=== PATIENT | female | born 1955 | race Caucasian/White ===

== ENCOUNTER 2019-12-11 08:13 | Outpatient (REF) | payer OTHER, SELFPAY ==
[2019-12-11 11:10] LABS: MANUAL DIFF FLAG NO
[2019-12-11 11:22] LABS: Estimated Average Glucose 108 mg/dL; Hemoglobin A1c % 5.4 %
[2019-12-11 12:12] LABS: Alanine Aminotransferase 14 U/L (0-31); Albumin Level 4.2 g/dL (3.5-5.0); Alkaline Phosphatase 73 U/L (39-117); Anion Gap 15 (12-20); Aspartate Amino Transferase 16 U/L (5-31); Bilirubin Total 1.1 mg/dL (0.0-1.0); Blood Urea Nitrogen 11 mg/dL (9-16); Calcium 9.5 mg/dL (8.4-10.2); Carbon Dioxide 28 mmol/L (22-29); Chloride 99 mmol/L (96-108); Cholesterol 264 mg/dL; Estimated Glomerular Filt Rate > 60; Glucose Random 105 mg/dL (60-115); HDL Cholesterol 55 mg/dL; LDL Cholesterol Calculated 180 mg/dl; Potassium 5.3 mmol/l (3.3-5.1); Sodium 137 mmol/L (135-145); Total Protein 6.5 g/dL (6.5-8.0); Triglycerides 149 mg/dL
[2019-12-11 12:17] LABS: Ferritin 311 ng/mL (10-250); TSH reflex Free T4 1.55 mIU/mL (0.32-4.0)
[2019-12-11 12:29] LABS: Basophils Absolute Auto 0.1 X10*3/uL (0.0-0.2); Basophils Percent Auto 0.9 % (0-2); Eosinophils Absolute Auto 0.1 X10*3/uL (0.0-0.4); Hematocrit 47.8 % (37-47); Hemoglobin 15.6 g/dl (12.0-16.0); Imm Gran Abs Auto 0.02 X10*3/uL (0.00-0.03); Imm Gran Pct Auto 0.2 % (0.0-0.4); Lymphocytes Absolute Auto 3.6 X10*3/uL (1.2-4.9); Lymphocytes Percent Auto 39.5 % (20-40); Mean Corpuscular HGB Conc 32.6 g/dl (31.0-35.0); Mean Corpuscular Hemoglobin 29.5 pg (27.0-33.0); Mean Corpuscular Volume 90.5 fL (80-98); Mean Platelet Volume 9.4 fL (9.4-12.3); Monocytes Absolute Auto 0.6 X10*3/uL (0.1-1.2); Monocytes Percent Auto 6.3 % (2-11); Neutrophils Absolute Auto 4.7 X10*3/uL (2.0-8.3); Neutrophils Percent Auto 52.1 % (45-73); Platelet Count 287 X10*3/uL (160-400); Red Blood Count 5.28 X10*6/uL (4.20-5.50); Red Cell Distribution Width 13.2 % (11.0-16.0)
== END 2019-12-11 08:14 | disposition home or self-care (01) ==
LOC: HO.HMGCLDS 08:13
PROVIDERS: PCP Internal Medicine; Visit Provider Internal Medicine
DX: I10 Essential (primary) hypertension (principal); F41.9 Anxiety disorder, unspecified; E78.9 Disorder of lipoprotein metabolism, unspecified; R73.03 Prediabetes; R10.13 Epigastric pain; R71.8 Other abnormality of red blood cells; E87.5 Hyperkalemia; R17 Unspecified jaundice; F17.200 Nicotine dependence, unspecified, uncomplicated
CPT/HCPCS: 36415; 80053; 80061; 82728; 83036; 84443; 85025

== ENCOUNTER 2020-06-11 10:31 | Outpatient (REF) | payer OTHER, SELFPAY ==
[2020-06-11 13:54] LABS: MANUAL DIFF FLAG NO
[2020-06-11 14:04] LABS: Basophils Absolute Auto 0.1 X10*3/uL (0.0-0.2); Basophils Percent Auto 1.1 % (0-2); Eosinophils Absolute Auto 0.1 X10*3/uL (0.0-0.4); Hematocrit 49.2 % (37-47); Hemoglobin 15.3 g/dl (12.0-16.0); Imm Gran Abs Auto 0.01 X10*3/uL (0.00-0.03); Imm Gran Pct Auto 0.1 % (0.0-0.4); Lymphocytes Percent Auto 37.2 % (20-40); Mean Corpuscular HGB Conc 31.1 g/dl (31.0-35.0); Mean Corpuscular Hemoglobin 28.2 pg (27.0-33.0); Mean Corpuscular Volume 90.8 fL (80-98); Mean Platelet Volume 9.1 fL (9.4-12.3); Monocytes Absolute Auto 0.5 X10*3/uL (0.1-1.2); Neutrophils Absolute Auto 4.5 X10*3/uL (2.0-8.3); Neutrophils Percent Auto 54.6 % (45-73); Platelet Count 225 X10*3/uL (160-400); Red Blood Count 5.42 X10*6/uL (4.20-5.50); Red Cell Distribution Width 12.9 % (11.0-16.0); White Blood Count 8.2 X10*3/uL (4.8-10.8)
[2020-06-11 14:19] LABS: Estimated Average Glucose 117 mg/dL; Hemoglobin A1c % 5.7 %
[2020-06-11 14:21] LABS: Alanine Aminotransferase 10 U/L (0-31); Albumin Level 4.2 g/dL (3.5-5.0); Alkaline Phosphatase 64 U/L (39-117); Anion Gap 14 (12-20); Aspartate Amino Transferase 15 U/L (5-31); Bilirubin Direct 0.3 mg/dL (0.0-0.5); Blood Urea Nitrogen 15 mg/dL (9-16); Calcium 9.4 mg/dL (8.4-10.2); Carbon Dioxide 29 mmol/L (22-29); Chloride 102 mmol/L (96-108); Cholesterol 205 mg/dL; Estimated Glomerular Filt Rate > 60; Glucose Fasting 104 mg/dL (60-99); HDL Cholesterol 66 mg/dL; LDL Cholesterol Calculated 113 mg/dl; Potassium 5.5 mmol/L (3.3-5.1); Sodium 139 mmol/L (135-145); Total Protein 6.7 g/dL (6.5-8.0); Triglycerides 132 mg/dL
[2020-06-11 14:43] LABS: Ferritin 244 ng/mL (10-250)
[2020-06-19 17:06] LABS: Vitamin D 25-OH, D2 <4 ng/mL; Vitamin D 25-OH, D3 36 ng/mL; Vitamin D 25-OH, Total 36 ng/mL (30-100)
== END 2020-06-11 10:32 | disposition home or self-care (01) ==
LOC: HO.HMGCLDS 10:31
PROVIDERS: PCP Internal Medicine; Visit Provider Internal Medicine
DX: E78.9 Disorder of lipoprotein metabolism, unspecified (principal); I10 Essential (primary) hypertension; E55.9 Vitamin D deficiency, unspecified; R10.13 Epigastric pain; F41.1 Generalized anxiety disorder; Z87.891 Personal history of nicotine dependence; Z09 Encounter for follow-up examination after completed treatment for conditions other than malignant neoplasm
CPT/HCPCS: 36415; 80048; 80061; 80076; 82306; 82728; 83036; 85025

== ENCOUNTER 2020-06-12 14:00 | Outpatient (REF) | payer OTHER, SELFPAY | END 2020-06-12 14:01 | disposition home or self-care (01) | LOC: HO.LNP 14:00 | PROVIDERS: Visit Provider Hospitalist | DX: R30.0 Dysuria (principal) | CPT/HCPCS: 87086 ==

== ENCOUNTER 2020-06-17 08:07 | Outpatient (REF) | payer OTHER, SELFPAY ==
[2020-06-17 11:55] LABS: Anion Gap 13 (12-20); Carbon Dioxide 27 mmol/L (22-29); Chloride 103 mmol/L (96-108); Potassium 4.2 mmol/L (3.3-5.1); Sodium 139 mmol/L (135-145)
== END 2020-06-17 08:08 | disposition home or self-care (01) ==
LOC: HO.HMGCLDS 08:07
PROVIDERS: PCP Internal Medicine; Visit Provider Internal Medicine
DX: E87.5 Hyperkalemia (principal)
CPT/HCPCS: 36415; 80051

== ENCOUNTER 2020-08-11 07:17 | Outpatient (REF) | payer OTHER, SELFPAY ==
--- NOTE | ~2020-08-11 | MM_ITS ---
EXAMINATION: MM SCREENING DIGITAL BREAST TOMOSYNTHESIS, BILATERAL CLINICAL INFORMATION: Screening. Asymptomatic. The lifetime risk of breast cancer based on the Tyrer-Cuzick Model is 9%. COMPARISON: Mammography: 01/04/2019, 03/31/2017, 03/10/2016 TECHNIQUE: Digital breast tomosynthesis is performed in both the craniocaudal and mediolateral oblique views along with computer-aided detection (CAD). Synthesized 2D images are generated from the tomosynthesis. FINDINGS: There are scattered areas of fibroglandular density (ACR BI-RADS breast composition Category b). There are no significant masses, abnormal calcifications, or other abnormalities. There are some scattered ductal secretory calcifications in both breasts. MM/MM tomosynthesis screening BI IMPRESSION: No mammographic evidence of malignancy. ASSESSMENT: BI-RADS 2: Benign RECOMMENDATION: Routine annual mammography screening. This patient's information was entered into a reminder system with a target due date for their next mammogram.
== END 2020-08-11 07:18 | disposition home or self-care (01) ==
LOC: HO.MAMMO 07:17
PROVIDERS: PCP Internal Medicine; Visit Provider Internal Medicine
DX: Z12.31 Encounter for screening mammogram for malignant neoplasm of breast (principal)
CPT/HCPCS: 77063; 77067

== ENCOUNTER 2021-03-13 09:40 | Outpatient (REF) | payer OTHER, SELFPAY ==
[2021-03-13 11:18] LABS: MANUAL DIFF FLAG NO
[2021-03-13 11:36] LABS: Basophils Absolute Auto 0.1 X10*3/uL (0.0-0.2); Basophils Percent Auto 0.7 % (0-2); Eosinophils Absolute Auto 0.1 X10*3/uL (0.0-0.4); Hematocrit 47.4 % (37.0-47.0); Imm Gran Abs Auto 0.03 X10*3/uL (0.00-0.03); Imm Gran Pct Auto 0.4 % (0.0-0.4); Lymphocytes Absolute Auto 1.8 X10*3/uL (1.2-4.9); Lymphocytes Percent Auto 22.5 % (20-40); Mean Corpuscular HGB Conc 31.6 g/dl (31.0-35.0); Mean Corpuscular Hemoglobin 28.8 pg (27.0-33.0); Mean Platelet Volume 9.1 fL (9.4-12.3); Monocytes Absolute Auto 0.4 X10*3/uL (0.1-1.2); Monocytes Percent Auto 4.8 % (2-11); Neutrophils Absolute Auto 5.8 x10*3/uL (2.0-8.3); Neutrophils Percent Auto 70.6 % (45-73); Platelet Count 249 X10*3/uL (160-400); Red Blood Count 5.21 X10*6/uL (4.20-5.50); Red Cell Distribution Width 12.3 % (11.0-16.0); White Blood Count 8.2 X10*3/uL (4.8-10.8)
[2021-03-13 12:06] LABS: Alanine Aminotransferase 16 U/L (0-31); Albumin Level 4.1 g/dL (3.5-5.0); Alkaline Phosphatase 68 U/L (39-117); Anion Gap 14 (12-20); Aspartate Amino Transferase 17 U/L (5-31); Bilirubin Total 0.5 mg/dL (0.0-1.0); Blood Urea Nitrogen 11 mg/dL (9-16); Calcium 9.7 mg/dL (8.4-10.2); Carbon Dioxide 27 mmol/L (22-29); Chloride 102 mmol/L (96-108); Estimated Glomerular Filt Rate > 60; Glucose Random 226 mg/dL (60-115); Potassium 4.6 mmol/L (3.3-5.1); Sodium 138 mmol/L (135-145); Total Protein 6.6 g/dL (6.5-8.0)
[2021-03-14 15:16] LABS: LDL Cholesterol Direct 118 mg/dL (<100)
== END 2021-03-13 09:41 | disposition home or self-care (01) ==
LOC: HO.HMGCLDS 09:40
PROVIDERS: Visit Provider Internal Medicine
DX: E78.9 Disorder of lipoprotein metabolism, unspecified (principal); F41.1 Generalized anxiety disorder; I10 Essential (primary) hypertension
CPT/HCPCS: 36415; 80053; 83721; 85025

== ENCOUNTER 2021-09-14 10:14 | Outpatient (REF) | payer MEDICARE, SELFPAY ==
--- NOTE | ~2021-09-14 | MM_ITS ---
EXAMINATION: MM SCREENING DIGITAL BREAST TOMOSYNTHESIS, BILATERAL CLINICAL INFORMATION: Screening. Asymptomatic. The lifetime risk of breast cancer based on the Tyrer-Cuzick Model is 8%. COMPARISON: Mammography: 08/11/2020, 01/04/2019, 03/31/2017, 03/10/2016 (baseline). TECHNIQUE: Digital breast tomosynthesis is performed in both the craniocaudal and mediolateral oblique views along with computer-aided detection (CAD). Synthesized 2D images are generated from the tomosynthesis. FINDINGS: There are scattered areas of fibroglandular density (ACR BI-RADS breast composition Category b). There is subtle focal asymmetric density anterior 9:00 right breast, likely summation artifact and/or incompletely compressed glandular tissue. The remainder of the bilateral breasts show parenchymal and stromal markings similar to prior studies. There are no abnormal calcifications. The axilla and skin contours are unremarkable. MM/MM tomosynthesis screening BI IMPRESSION: Right: -Subtle focal asymmetric density anterior 9:00, likely summation artifact or incompletely compressed glandular tissue. Left: -No mammographic evidence of malignancy. ASSESSMENT: BI-RADS 0: Incomplete - Need Additional Imaging Evaluation RECOMMENDATION: 1. Additional views of the right breast (rolled CC x2, standard ML). 2. Targeted ultrasound if warranted after review of the additional views. 3. Radiology department staff will contact the patient for additional imaging. This patient's information was entered into a reminder system with a target due date for their next mammogram.
== END 2021-09-14 10:15 | disposition home or self-care (01) ==
LOC: HO.MAMMO 10:14
PROVIDERS: PCP Internal Medicine; Visit Provider Internal Medicine
DX: Z12.31 Encounter for screening mammogram for malignant neoplasm of breast (principal)
CPT/HCPCS: 77063; 77067

== ENCOUNTER 2021-09-17 08:18 | Outpatient (REF) | payer MEDICARE, SELFPAY ==
--- NOTE | ~2021-09-17 | MM_ITS ---
EXAMINATION: MM DIAGNOSTIC DIGITAL BREAST TOMOSYNTHESIS, RIGHT CLINICAL INFORMATION: Recall from screening for subtle focal asymmetric density anterior 9:00 likely summation artifact or incompletely compressed glandular tissue. COMPARISON: Mammography: 09/14/2021, 08/11/2020, 01/04/2019 TECHNIQUE: Digital breast tomosynthesis is performed. 2D images are generated from the tomosynthesis. The following views are obtained: Rolled CC x2, standard ML. FINDINGS: There are scattered areas of fibroglandular density (ACR BI-RADS breast composition Category b). The additional views show no three-dimensional focal asymmetric density. There is no interval mass or architectural abnormality or developing density. No significant changes from prior studies. Results are discussed with the patient at time of visit. MM/MM tomosynthesis added views R IMPRESSION: Additional views show focal asymmetric density. No significant changes from prior exams. ASSESSMENT: BI-RADS 2: Benign RECOMMENDATION: Routine annual mammography screening. This patient's information was entered into a reminder system with a target due date for their next mammogram.
== END 2021-09-17 08:19 | disposition home or self-care (01) ==
LOC: HO.MAMMO 08:18
PROVIDERS: PCP Internal Medicine; Visit Provider Internal Medicine
DX: N64.89 Other specified disorders of breast (principal)
CPT/HCPCS: 77061; 77065

== ENCOUNTER 2021-11-09 08:12 | Outpatient (REF) | payer MEDICARE, MEDICAID, SELFPAY ==
[2021-11-09 11:17] LABS: MANUAL DIFF FLAG NO
[2021-11-09 11:40] LABS: Basophils Absolute Auto 0.1 X10*3/uL (0.0-0.2); Basophils Percent Auto 0.9 % (0-2); Eosinophils Absolute Auto 0.2 X10*3/uL (0.0-0.4); Eosinophils Percent Auto 1.9 % (0-4); Hematocrit 43.7 % (37.0-47.0); Hemoglobin 14.7 g/dl (12.0-16.0); Imm Gran Abs Auto 0.03 X10*3/uL (0.00-0.03); Imm Gran Pct Auto 0.3 % (0.0-0.4); Lymphocytes Absolute Auto 3.6 X10*3/uL (1.2-4.9); Lymphocytes Percent Auto 38.2 % (20-40); Mean Corpuscular HGB Conc 33.6 g/dl (31.0-35.0); Mean Corpuscular Hemoglobin 29.1 pg (27.0-33.0); Mean Corpuscular Volume 86.4 fL (80.0-98.0); Mean Platelet Volume 9.4 fL (9.4-12.3); Monocytes Absolute Auto 0.7 X10*3/uL (0.1-1.2); Monocytes Percent Auto 7.3 % (2-11); Neutrophils Absolute Auto 4.8 x10*3/uL (2.0-8.3); Neutrophils Percent Auto 51.4 % (45-73); Platelet Count 278 X10*3/uL (160-400); Red Blood Count 5.06 X10*6/uL (4.20-5.50); Red Cell Distribution Width 12.6 % (11.0-16.0); White Blood Count 9.4 X10*3/uL (4.8-10.8)
[2021-11-09 11:54] LABS: Estimated Average Glucose 206 mg/dL; Hemoglobin A1c % 8.8 %
[2021-11-09 12:14] LABS: Alanine Aminotransferase 23 U/L (0-31); Alkaline Phosphatase 66 U/L (39-117); Aspartate Amino Transferase 17 U/L (5-31); Bilirubin Total 1.3 mg/dL (0.0-1.0); Blood Urea Nitrogen 15 mg/dL (9-16); Calcium 9.4 mg/dL (8.4-10.2); Cholesterol 183 mg/dL; Estimated Glomerular Filt Rate 52; Glucose Fasting 205 mg/dL (60-99); HDL Cholesterol 48 mg/dL; LDL Cholesterol Calculated 100 mg/dl; Total Protein 6.4 g/dL (6.5-8.0); Triglycerides 176 mg/dL
[2021-11-09 12:31] LABS: Anion Gap 17 (12-20); Carbon Dioxide 32 mmol/L (22-29); Chloride 93 mmol/L (96-108); Potassium 2.7 mmol/L (3.3-5.1); Sodium 139 mmol/L (135-145)
== END 2021-11-09 08:13 | disposition home or self-care (01) ==
LOC: HO.HMGCLDS 08:12
PROVIDERS: PCP Internal Medicine; Visit Provider Internal Medicine
DX: I10 Essential (primary) hypertension (principal); F41.1 Generalized anxiety disorder; E78.9 Disorder of lipoprotein metabolism, unspecified; E66.09 Other obesity due to excess calories; I25.10 Atherosclerotic heart disease of native coronary artery without angina pectoris
CPT/HCPCS: 36415; 80053; 80061; 83036; 85025

== ENCOUNTER 2021-11-10 12:16 | Outpatient (REF) | payer MEDICARE, MEDICAID, SELFPAY ==
[2021-11-10 14:12] LABS: Alanine Aminotransferase 22 U/L (0-31); Albumin Level 4.3 g/dL (3.5-5.0); Alkaline Phosphatase 71 U/L (39-117); Anion Gap 17 (12-20); Aspartate Amino Transferase 17 U/L (5-31); Blood Urea Nitrogen 19 mg/dL (9-16); Calcium 10.6 mg/dL (8.4-10.2); Carbon Dioxide 33 mmol/L (22-29); Chloride 92 mmol/L (96-108); Estimated Glomerular Filt Rate 46; Glucose Random 262 mg/dL (60-115); Potassium 3.7 mmol/L (3.3-5.1); Sodium 138 mmol/L (135-145)
[2021-11-10 14:17] LABS: Estimated Average Glucose 206 mg/dL; Hemoglobin A1c % 8.8 %
[2021-11-10 17:54] LABS: Creatinine Urine 148.24 mg/dL; Microalbum/Creatinine Ratio Ur 5.3 ug/mg cr
[2021-11-11 08:36] LABS: LDL Cholesterol Direct 121 mg/dL (<100)
== END 2021-11-10 12:17 | disposition home or self-care (01) ==
LOC: HO.HMGCLDS 12:16
PROVIDERS: PCP Internal Medicine; Visit Provider Internal Medicine
DX: E87.6 Hypokalemia (principal); R73.9 Hyperglycemia, unspecified
CPT/HCPCS: 36415; 80053; 82043; 83036; 83721

== ENCOUNTER 2021-11-28 09:29 | Emergency (ER) | payer MEDICARE, MEDICAID, SELFPAY ==
[2021-11-28 09:46] VITALS: BP 155/69; PULSE 72; RESP 17; TEMP 35.9; O2SAT 99; BMI 32.1
[2021-11-28 10:21] LABS: MANUAL DIFF FLAG NO
[2021-11-28 10:28] LABS: Basophils Absolute Auto 0.1 X10*3/uL (0.0-0.2); Basophils Percent Auto 0.8 % (0-2); Eosinophils Absolute Auto 0.1 X10*3/uL (0.0-0.4); Eosinophils Percent Auto 1.2 % (0-4); Hematocrit 42.7 % (37.0-47.0); Hemoglobin 14.2 g/dl (12.0-16.0); Imm Gran Abs Auto 0.03 X10*3/uL (0.00-0.03); Imm Gran Pct Auto 0.3 % (0.0-0.4); Lymphocytes Absolute Auto 2.5 X10*3/uL (1.2-4.9); Lymphocytes Percent Auto 27.9 % (20-40); Mean Corpuscular HGB Conc 33.3 g/dl (31.0-35.0); Mean Corpuscular Hemoglobin 28.6 pg (27.0-33.0); Mean Corpuscular Volume 85.9 fL (80.0-98.0); Mean Platelet Volume 9.3 fL (9.4-12.3); Monocytes Absolute Auto 0.6 X10*3/uL (0.1-1.2); Monocytes Percent Auto 6.8 % (2-11); Neutrophils Absolute Auto 5.7 x10*3/uL (2.0-8.3); Platelet Count 258 X10*3/uL (160-400); Red Blood Count 4.97 X10*6/uL (4.20-5.50); Red Cell Distribution Width 12.8 % (11.0-16.0)
[2021-11-28 10:41] LABS: Appearance Urine Cloudy; Color Urine Orange; Glucose Urine UA 250 mg/dL (Negative); Leukocyte Esterase Urine Moderate (2+) (Negative); Nitrite Urine Negative (Negative); UMIC TRIGGER UACC YES; Urine Blood Large (3+) (Negative); Urine Ketones Negative (Negative); Urine Protein 30 (1+) mg/dL (Neg-Trace)
[2021-11-28 10:43] LABS: Alanine Aminotransferase 21 U/L (0-31); Albumin Level 4.3 g/dL (3.5-5.0); Alkaline Phosphatase 58 U/L (39-117); Anion Gap 15 (12-20); Aspartate Amino Transferase 21 U/L (5-31); Bacteria Urine 1+ (None Seen); Bilirubin Total 0.9 mg/dL (0.0-1.0); Blood Urea Nitrogen 23 mg/dL (9-16); Calcium 9.9 mg/dL (8.4-10.2); Carbon Dioxide 30 mmol/L (22-29); Chloride 98 mmol/L (96-108); Creatinine Clr Calc Pharmacy 54.7; Estimated Glomerular Filt Rate 49; Glucose Random 236 mg/dL (60-115); Hyaline Casts Urine 0-2 /LPF (0-2); Potassium 2.9 mmol/L (3.3-5.1); Prothrombin Time 10.9 SEC (10.0-13.1); RBC Urine >20 /HPF (0-2); Sodium 140 mmol/L (135-145); Total Protein 6.7 g/dL (6.5-8.0); UACC Culture Trigger YES
[2021-11-28 10:46] LABS: Partial Thromboplastin Time 34.4 SEC (26.0-36.4)
[2021-11-28 13:41] VITALS: BP 166/68; PULSE 69; RESP 16; TEMP 37.1; O2SAT 97
--- NOTE | 2021-11-28 14:22 | ED.FEMALEGU ---
HPI - Female Genitourinary General Chief complaint: Vaginal Bleeding Stated complaint: vaginal bleeding, weak, severe abd pain Time Seen by Provider: 11/28/21 14:01 Source: patient Mode of arrival: ambulatory Limitations: no limitations History of Present Illness HPI Narrative: 66-year-old female postmenopausal who felt abdominal cramps this morning followed by vaginal bleed, patient use to Pat today, no CP, no SOB, not feeling dizzy. 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 Patient also been having dysuria and frequency urination. Had a recent UTI treated with Cipro in the past. No fever, no chills. Related Data Home Medications Medication Instructions Recorded Confirmed clopidogrel 75 mg tablet 75 mg PO DAILY 02/20/20 11/12/21 rosuvastatin 20 mg tablet 20 mg PO DAILY 06/18/20 11/12/21 cholecalciferol (vitamin D3) 50 50 mcg PO DAILY 06/26/21 11/12/21 mcg (2,000 unit) capsule Previous Rx's Medication Instructions Recorded diazepam 5 mg tablet (Valium) 5 mg PO BEDTIME PRN sleep 30 days 11/12/21 #30 tabs glipizide 5 mg tablet 5 mg PO DAILY 90 days #90 tabs 11/12/21 OneTouch Ultra Test (blood sugar #100 ea 11/13/21 diagnostic) OneTouch Ultra2 Meter #1 ea 11/13/21 (blood-glucose meter) lancets 33 gauge (OneTouch Delica #100 ea 11/13/21 Lancets) atenolol 50 mg-chlorthalidone 25 1 tab PO DAILY 90 days #90 tabs 11/26/21 mg tablet ciprofloxacin HCl 500 mg tablet 500 mg PO BID #14 tabs 11/28/21 (Cipro) Allergies Allergy/AdvReac Type Severity Reaction Status Date / Time Iodinated Contrast Media Allergy Severe SEVERE Verified 11/12/21 09:46 [IV CONTRAST] HIVES aspirin [ASPIRIN] Allergy Intermediate LIPS SWELL Verified 11/12/21 09:46 Penicillins [PENICILLINS] Allergy Intermediate Facial Verified 11/12/21 09:46 Swelling Sulfa (Sulfonamide Allergy Intermediate HIVES Verified 11/12/21 09:46 Antibiotics) [SULFA (SULFONAMIDE ANTIBIOTICS)] cephalexin [From Keflex] Allergy Unknown hives Verified 11/12/21 09:46 clindamycin Allergy Unknown Diarrhea Verified 11/12/21 09:46 cyclobenzaprine Allergy Unknown loopy Verified 11/12/21 09:46 [From Flexeril] egg [EGG] Allergy Unknown GI UPSET Verified 11/12/21 09:46 penicillin V Allergy Unknown facial Verified 11/12/21 09:46 swelling oxycodone [From PERCOCET] AdvReac Severe HALLUCINATI Unverified 11/12/21 09:46 ONS monosodium glutamate AdvReac Intermediate HEADACHE Verified 11/12/21 09:46 nut - unspecified [nut] AdvReac Intermediate GI UPSET Unverified 11/12/21 09:46 iodine IVP Allergy Unknown hives Uncoded 11/12/21 09:46 shellfish Allergy Unknown swelling, Uncoded 11/12/21 09:46 hives Clindamycin Phosphate AdvReac Unknown diarrhea Uncoded 11/12/21 09:46 eggs AdvReac Unknown GI upset Uncoded 11/12/21 09:46 Flexeril AdvReac Unknown loopy Uncoded 11/12/21 09:46 MSG AdvReac Unknown headaches Uncoded 11/12/21 09:46 Review of Systems Review of Systems: All other systems are reviewed and are negative Constitutional: Reports as per HPI and Reports no additional constitutional complaints Eyes: Reports as per HPI and Reports no additional eye complaints Reports system reviewed and no additional complaints, except as documented Cardiovascular: Reports as per HPI and Reports no additional cardiovascular complaints Respiratory: Reports as per HPI and Reports no additional respiratory complaints Gastrointestinal: Reports as per HPI and Reports no additional gastrointestinal complaints Genitourinary: Reports no additional female genitourinary complaints Musculoskeletal: Reports no additional musculoskeletal complaints Skin/Breast: Reports system reviewed and no additional complaints, except as docu Psychiatric: Reports no additional psychiatric complaints Endocrine: Reports no additional endocrine complaints Hematologic/Lymphatic: Reports no additional hematologic/lymphatic complaints Allergic/Immunologic: Reports no additional allergic/immunologic complaints Reports system reviewed and no additional complaints, except as documented and Reports Abnormal speech present [facility] Past Medical History Medical History Anxiety, generalized Dyspepsia Hypertension, essential Tobacco abuse Vitamin D deficiency Surgical History Cataracts, bilateral History of laminectomy History of lithotripsy Hx of cholecystectomy Family History Family History Father HTN (hypertension) Diabetes mellitus Hyperlipidemia Parkinson disease Dementia Myocardial infarction Mother Lupus HTN (hypertension) Fracture, hip Maternal Grandfather No problems noted. Maternal Grandmother No problems noted. Paternal Grandfather No problems noted. Paternal Grandmother No problems noted. Brother No problems noted. Sister No problems noted. Daughter No problems noted. Daughter No problems noted. Other Mental health disorder Social History Social History Housing: House Alcohol intake: never Patient Tobacco Use Status: Former Tobacco user Quit Date: 2020 Smoked: 40 e-Cigarette/Vaping Use: Never Used Second Hand Smoke Exposure: No Advance Directives: No Advance Directives Information Provided: No Current occupational status: retired Cognitive needs: No Hearing needs: No Vision needs: No Physical Exam Vital Signs: Vital Signs: Last Vital Signs Temp 98.7 F 11/28/21 13:41 Pulse 69 11/28/21 13:41 Resp 16 11/28/21 13:41 BP 166/68 H 11/28/21 13:41 Pulse Ox 97 11/28/21 13:41 O2 Del Method 11/28/21 13:41 BMI result Body Mass Index 32.1 Vital signs have been reviewed as appeared to be correct. Blood pressure normal. Heart rate normal. Respiration rate normal. Temperature normal. Oxygen saturation normal. Appearance: Alert. Oriented X3. No acute distress. Head: Normal external exam. Normocephalic. Atraumatic. No Marrero signs noted. No raccoon eyes noted Eyes: PERRLA. EOMI. Conjunctiva and sclera normal. Eyelids normal. ENT: TM's Normal. Pharynx normal. Uvula midline. Moist mucous membranes. No trismus noted. No drooling noted. No muffled voice noted. Neck: Normal inspection. Neck supple. FROM. No adenopathy. Thyroid Normal. No meningeal signs. No neck mass noted. CVS: Normal heart rate and rhythm. Heart sound normal. No murmurs noted. Pulses normal throughout. Respiratory: No respiratory distress. Painless inspiration. Breath sounds normal. No wheezes/rales/rhonchi noted. Chest nontender. No accessory muscle usage noted or decreased air movement noted. Abdomen: Soft and nontender. Bowel sounds normal in all 4 quadrants. No distention noted. No organomegaly noted. No visible injury noted. Pelvic exam: No active bleeding, little blood in the vault, no adnexal mass, no tender adnexa, no palpable lymph nodes. Back: No CVA tenderness. Full range of motion noted. Skin: Skin warm and dry. Normal skin color. Normal skin turgor. No rashes/lesions/lacerations noted. Extremities: No lower extremity edema. Extremities exhibit normal range of motion. Extremities nontender. Neuro: Oriented X 3. Cranial nerve exam: II-XII are grossly intact No motor deficit. No sensory deficit. Reflexes normal. Course Course Course Narrative: 66-year-old female with no significant past medical history, did not have OBGYN routine checkup for the past 18 years presented with vaginal bleeding, patient hemodynamically stable with stable CBC, ultrasound recommending further OBGYN evaluation and endometrial sampling biopsy, the case discussed with Gamaliel Cheema who will see the patient in his office next week. UTI start patient on Cipro for 7 days. Hypokalemia patient was given oral potassium. MDM - Female Genitourinary Medical Records Attestation: I reviewed the patient's medical records. Lab Data Attestation: I reviewed the patient's lab results. Result diagrams: 11/28/21 10:15 10 10:15 Labs: Lab Results 11/28/21 11/28/21 11/28/21 Range/Units 10:15 10:15 10:15 WBC 9.0 (4.8-10.8) X10*3/uL RBC 4.97 (4.20-5.50) X10*6/uL Hgb 14.2 (12.0-16.0) g/dl Hct 42.7 (37.0-47.0) % MCV 85.9 (80.0-98.0) fL MCH 28.6 (27.0-33.0) pg MCHC 33.3 (31.0-35.0) g/dl RDW 12.8 (11.0-16.0) % Plt Count 258 (160-400) X10*3/uL MPV 9.3 L (9.4-12.3) fL Immature Gran % (Auto) 0.3 (0.0-0.4) % Neut % (Auto) 63.0 (45-73) % Lymph % (Auto) 27.9 (20-40) % [place] % (Auto) 6.8 (2-11) % Eos % (Auto) 1.2 (0-4) % Baso % (Auto) 0.8 (0-2) % Lymph # (Auto) 2.5 (1.2-4.9) X10*3/uL [place] # (Auto) 0.6 (0.1-1.2) X10*3/uL Eos # (Auto) 0.1 (0.0-0.4) X10*3/uL Baso # (Auto) 0.1 (0.0-0.2) X10*3/uL Abs Immat Gran (auto) 0.03 (0.00-0.03) X10*3/uL Absolute Neuts (auto) 5.7 (2.0-8.3) x10*3/uL Absolute Nucleated RBC 0.000 (0.0-0.012) X10*3/uL Nucleated RBC % (auto) 0.0 (0.0-0.2) /100WBC PT 10.9 (10.0-13.1) SEC INR 1.0 (0.9-1.1) APTT 34.4 (26.0-36.4) SEC Sodium 140 (135-145) mmol/L Potassium 2.9 L D (3.3-5.1) mmol/L Chloride 98 (96-108) mmol/L Carbon Dioxide 30 H (22-29) mmol/L Anion Gap 15 (12-20) BUN 23 H (9-16) mg/dL Creatinine 1.12 (0.5-1.4) mg/dL Estim Creat Clear Calc 54.7 Estimated GFR 49 POC Glucose (60-115) mg/dL Random Glucose 236 H (60-115) mg/dL Calcium 9.9 D (8.4-10.2) mg/dL Total Bilirubin 0.9 (0.0-1.0) mg/dL AST 21 (5-31) U/L ALT 21 (0-31) U/L Alkaline Phosphatase 58 (39-117) U/L Total Protein 6.7 (6.5-8.0) g/dL Albumin 4.3 (3.5-5.0) g/dL Urine Color Urine Appearance Urine pH (5.0-9.0) Ur Specific [place] (1.005-1.025) Urine Protein (Neg-Trace) mg/dL Urine Glucose (UA) (Negative) mg/dL Urine Ketones (Negative) mg/dL Urine Blood (Negative) Urine Nitrite (Negative) Ur Leukocyte Esterase (Negative) Urine RBC (0-2) /HPF Urine WBC (0-5) /HPF Ur Squamous Epith Cells (0-2) /HPF Urine Bacteria (None Seen) Hyaline Casts (0-2) /LPF 11/28/21 11/28/21 Range/Units 10:15 13:45 WBC (4.8-10.8) X10*3/uL RBC (4.20-5.50) X10*6/uL Hgb (12.0-16.0) g/dl Hct (37.0-47.0) % MCV (80.0-98.0) fL MCH (27.0-33.0) pg MCHC (31.0-35.0) g/dl RDW (11.0-16.0) % Plt Count (160-400) X10*3/uL MPV (9.4-12.3) fL Immature Gran % (Auto) (0.0-0.4) % Neut % (Auto) (45-73) % Lymph % (Auto) (20-40) % [place] % (Auto) (2-11) % Eos % (Auto) (0-4) % Baso % (Auto) (0-2) % Lymph # (Auto) (1.2-4.9) X10*3/uL [place] # (Auto) (0.1-1.2) X10*3/uL Eos # (Auto) (0.0-0.4) X10*3/uL Baso # (Auto) (0.0-0.2) X10*3/uL Abs Immat Gran (auto) (0.00-0.03) X10*3/uL Absolute Neuts (auto) (2.0-8.3) x10*3/uL Absolute Nucleated RBC (0.0-0.012) X10*3/uL Nucleated RBC % (auto) (0.0-0.2) /100WBC PT (10.0-13.1) SEC INR (0.9-1.1) APTT (26.0-36.4) SEC Sodium (135-145) mmol/L Potassium (3.3-5.1) mmol/L Chloride (96-108) mmol/L Carbon Dioxide (22-29) mmol/L Anion Gap (12-20) BUN (9-16) mg/dL Creatinine (0.5-1.4) mg/dL Estim Creat Clear Calc Estimated GFR POC Glucose 129 H (60-115) mg/dL Random Glucose (60-115) mg/dL Calcium (8.4-10.2) mg/dL Total Bilirubin (0.0-1.0) mg/dL AST (5-31) U/L ALT (0-31) U/L Alkaline Phosphatase (39-117) U/L Total Protein (6.5-8.0) g/dL Albumin (3.5-5.0) g/dL Urine Color [place] A Urine Appearance Cloudy Urine pH 8.0 (5.0-9.0) Ur Specific [place] 1.020 (1.005-1.025) Urine Protein 30 (1+) H (Neg-Trace) mg/dL Urine Glucose (UA) 250 H (Negative) mg/dL Urine Ketones Negative (Negative) mg/dL Urine Blood Large (3+) H (Negative) Urine Nitrite Negative (Negative) Ur Leukocyte Esterase Moderate (2+) H (Negative) Urine RBC >20 H (0-2) /HPF Urine WBC 6-10 H (0-5) /HPF Ur Squamous Epith Cells 11-20 (0-2) /HPF Urine Bacteria 1+ (None Seen) Hyaline Casts 0-2 (0-2) /LPF Imaging Data Pelvic ultrasound: Attestation: I personally reviewed and interpreted this imaging study as follows: Radiologist's impression: 1. Abnormally thickened endometrium in a postmenopausal patient with some internal cystic spaces. Differential considerations include endometrial hyperplasia or endometrial cancer. Recommend SEC[employer] S[employer] TE[employer]ER LIBRARIAN consultation and biopsy. Discharge Plan Discharge Clinical Impression: Abnormal vaginal bleeding, Acute hypokalemia, Acute UTI Patient Disposition: Home, Self-Care Instructions: Dysfunctional Uterine Bleeding (ED) Prescriptions: New ciprofloxacin HCl [Cipro] 500 mg tablet 500 mg PO BID Qty: 14 0RF No Action (DME) blood-glucose meter [OneTouch Ultra2 Meter] Misc See Rx Instructions .Route Qty: 1 0RF Rx Instructions: as directed (DME) OneTouch Ultra Test Strip See Rx Instructions .Route Qty: 100 1RF Rx Instructions: test blood sugar daily (DME) lancets [OneTouch Delica Lancets] 33 gauge misc See Rx Instructions .Route Qty: 100 1RF Rx Instructions: test blood sugar daily atenolol-chlorthalidone 50-25 mg tablet 1 tab PO DAILY 90 Days Qty: 90 0RF clopidogrel 75 mg tablet 75 mg PO DAILY rosuvastatin 20 mg tablet 20 mg PO DAILY cholecalciferol (vitamin D3) 50 mcg (2,000 unit) capsule 50 mcg PO DAILY glipizide 5 mg tablet 5 mg PO DAILY 90 Days Qty: 90 0RF diazepam [Valium] 5 mg tablet 5 mg PO BEDTIME PRN (Reason: sleep) 30 Days Qty: 30 0RF Referrals: Pablito Mcarthur MD [Primary Care Provider] - Tuan Lundberg MD [Physician] -
--- NOTE | 2021-11-28 16:36 | PM.GYNCN ---
MANAGER SOFTWARE - CN: HPI Data of Consult Consult date: 11/28/21 Primary Care Provider: Pablito Mcarthur MD Consult Narrative Narrative: I was consulted regarding Eufemia Ruby who is a 66 year old female presented emergency room after 18 years of menopause with vaginal and cramping. Vaginal bleeding stopped by the time of arrival to emergency room. In the emergency room CBC was normal, ultrasound was done cc:: CC: OB PMFSH Past Medical History Medical History Anxiety, generalized Dyspepsia Hypertension, essential Tobacco abuse Vitamin D deficiency Family History Family History Father HTN (hypertension) Diabetes mellitus Hyperlipidemia Parkinson disease Dementia Myocardial infarction Mother Lupus HTN (hypertension) Fracture, hip Maternal Grandfather No problems noted. Maternal Grandmother No problems noted. Paternal Grandfather No problems noted. Paternal Grandmother No problems noted. Brother No problems noted. Sister No problems noted. Daughter No problems noted. Daughter No problems noted. Other Mental health disorder Surgical History Surgical History Cataracts, bilateral History of laminectomy History of lithotripsy Hx of cholecystectomy Social History Social History Housing: House Alcohol intake: never Patient Tobacco Use Status: Former Tobacco user Quit Date: 2020 Years Smoked: 40 e-Cigarette/Vaping Use: Never Used Second Hand Smoke Exposure: No Advance Directives: No Advance Directives Information Provided: No Current occupational status: retired Cognitive needs: No Hearing needs: No Vision needs: No Meds Allergies Allergy/AdvReac Type Severity Reaction Status Date / Time Iodinated Contrast Media Allergy Severe SEVERE Verified 11/12/21 09:46 [IV CONTRAST] HIVES aspirin [ASPIRIN] Allergy Intermediate LIPS SWELL Verified 11/12/21 09:46 Penicillins [PENICILLINS] Allergy Intermediate Facial Verified 11/12/21 09:46 Swelling Sulfa (Sulfonamide Allergy Intermediate HIVES Verified 11/12/21 09:46 Antibiotics) [SULFA (SULFONAMIDE ANTIBIOTICS)] cephalexin [From Keflex] Allergy Unknown hives Verified 11/12/21 09:46 clindamycin Allergy Unknown Diarrhea Verified 11/12/21 09:46 cyclobenzaprine Allergy Unknown loopy Verified 11/12/21 09:46 [From Flexeril] egg [EGG] Allergy Unknown GI UPSET Verified 11/12/21 09:46 penicillin V Allergy Unknown facial Verified 11/12/21 09:46 swelling oxycodone [From PERCOCET] AdvReac Severe HALLUCINATI Unverified 11/12/21 09:46 ONS monosodium glutamate AdvReac Intermediate HEADACHE Verified 11/12/21 09:46 nut - unspecified [nut] AdvReac Intermediate GI UPSET Unverified 11/12/21 09:46 iodine IVP Allergy Unknown hives Uncoded 11/12/21 09:46 shellfish Allergy Unknown swelling, Uncoded 11/12/21 09:46 hives Clindamycin Phosphate AdvReac Unknown diarrhea Uncoded 11/12/21 09:46 eggs AdvReac Unknown GI upset Uncoded 11/12/21 09:46 Flexeril AdvReac Unknown loopy Uncoded 11/12/21 09:46 MSG AdvReac Unknown headaches Uncoded 11/12/21 09:46 Home Medications Medication Instructions Recorded Confirmed Last Taken Type clopidogrel 75 mg tablet 75 mg PO DAILY 02/20/20 11/12/21 Unknown History rosuvastatin 20 mg tablet 20 mg PO DAILY 06/18/20 11/12/21 Unknown History cholecalciferol (vitamin D3) 50 50 mcg PO DAILY 06/26/21 11/12/21 Unknown History mcg (2,000 unit) capsule MANAGER SOFTWARE Physical Exam Vitals Vital signs: Temp Pulse Resp BP Pulse Ox O2 Del Method 98.7 F 69 16 166/68 H 97 11/28/21 13:41 11/28/21 13:41 11/28/21 13:41 11/28/21 13:41 11/28/21 13:41 11/28/21 13:41 BMI result Body Mass Index 32.1 Additional Comments: Pelvic exam reported by Dr. Abdalla as unremarkable MANAGER SOFTWARE - Results Labs CBC & Chem 7: 11/28/21 10:15 11/28/21 10:15 Labs: Short CBC 11/28/21 Range/Units 10:15 WBC 9.0 (4.8-10.8) X10*3/uL Hgb 14.2 (12.0-16.0) g/dl Hct 42.7 (37.0-47.0) % Plt Count 258 (160-400) X10*3/uL BMP 11/28/21 10:15 Sodium 140 Potassium 2.9 L D Chloride 98 Carbon Dioxide 30 H BUN 23 H Creatinine 1.12 Calcium 9.9 D Liver Function 11/28/21 Range/Units 10:15 Total Bilirubin 0.9 (0.0-1.0) mg/dL AST 21 (5-31) U/L ALT 21 (0-31) U/L Alkaline Phosphatase 58 (39-117) U/L Albumin 4.3 (3.5-5.0) g/dL Urine 11/28/21 Range/Units 10:15 Urine Color [place] A Urine Appearance Cloudy Urine pH 8.0 (5.0-9.0) Ur Specific [place] 1.020 (1.005-1.025) Urine Protein 30 (1+) H (Neg-Trace) mg/dL Urine Glucose (UA) 250 H (Negative) mg/dL Imaging US - abdomen: Radiologist's impression: ITS Impressions Pelvic/Transvag US 11/28/21 15:07 IMPRESSION: 1. Abnormally thickened endometrium in a postmenopausal patient with some internal cystic spaces. Differential considerations include endometrial hyperplasia or endometrial cancer. Recommend MANAGER SOFTWARE consultation and biopsy. Assessment and Plan (1) Postmenopausal bleeding: Status: Acute Plan Since the pelvic ultrasound endometrial stripe thickenss measured by ultrasound was more than 4mm, with internal cystic spaces, patient is to be evaluated for endometrial sampling to rule out endometrial pathology including hyperplasia , polyp or cancer via hysteroscopy D&C possible polypectomy versus endometrial biopsy , therefore I recommend for the patient to set up an outpatient appointment as soon as possible in the office for an evaluation/endometrial sampling. Instructions to be given to patient to come back emergency room in case of heavy vaginal bleeding. I spent a total of 20 minutes reviewing the chart, communicating with the ER provider and documenting the medical record
[2021-11-28] MEDS: Potassium Chloride Packet 20 MEQ PACKET 40 MEQ PO (16:44)
== END 2021-11-28 17:01 | disposition home or self-care (01) ==
PROVIDERS: Emergency Provider Emergency Medicine; PCP Internal Medicine
DX: N95.0 Postmenopausal bleeding (principal); N39.0 Urinary tract infection, site not specified; E87.6 Hypokalemia; E11.9 Type 2 diabetes mellitus without complications; I10 Essential (primary) hypertension
CPT/HCPCS: 36415; 76830; 76856; 80053; 81001; 82947; 85025; 85610; 85730; 87086; 99284

== ENCOUNTER 2021-12-01 10:13 | Outpatient (REF) | payer MEDICARE, MEDICAID, SELFPAY ==
[2021-12-01 11:22] LABS: MANUAL DIFF FLAG NO
[2021-12-01 11:31] LABS: Basophils Absolute Auto 0.1 X10*3/uL (0.0-0.2); Basophils Percent Auto 0.4 % (0-2); Eosinophils Percent Auto 0.3 % (0-4); Hematocrit 43.6 % (37.0-47.0); Hemoglobin 14.7 g/dl (12.0-16.0); Imm Gran Abs Auto 0.04 X10*3/uL (0.00-0.03); Imm Gran Pct Auto 0.3 % (0.0-0.4); Lymphocytes Absolute Auto 3.1 X10*3/uL (1.2-4.9); Lymphocytes Percent Auto 26.8 % (20-40); Mean Corpuscular HGB Conc 33.7 g/dl (31.0-35.0); Mean Corpuscular Hemoglobin 29.2 pg (27.0-33.0); Mean Corpuscular Volume 86.5 fL (80.0-98.0); Mean Platelet Volume 9.8 fL (9.4-12.3); Monocytes Absolute Auto 0.8 X10*3/uL (0.1-1.2); Monocytes Percent Auto 6.6 % (2-11); Neutrophils Absolute Auto 7.6 x10*3/uL (2.0-8.3); Neutrophils Percent Auto 65.6 % (45-73); Platelet Count 287 X10*3/uL (160-400); Red Blood Count 5.04 X10*6/uL (4.20-5.50); White Blood Count 11.7 X10*3/uL (4.8-10.8)
[2021-12-01 11:41] LABS: Alanine Aminotransferase 28 U/L (0-31); Albumin Level 4.4 g/dL (3.5-5.0); Alkaline Phosphatase 59 U/L (39-117); Anion Gap 16 (12-20); Aspartate Amino Transferase 27 U/L (5-31); Bilirubin Total 1.1 mg/dL (0.0-1.0); Blood Urea Nitrogen 18 mg/dL (9-16); Carbon Dioxide 28 mmol/L (22-29); Chloride 97 mmol/L (96-108); Estimated Glomerular Filt Rate 49; Glucose Random 178 mg/dL (60-115); Sodium 138 mmol/L (135-145); Total Protein 6.9 g/dL (6.5-8.0)
== END 2021-12-01 10:14 | disposition home or self-care (01) ==
LOC: HO.HMGCLDS 10:13
PROVIDERS: PCP Internal Medicine; Visit Provider Internal Medicine
DX: E87.6 Hypokalemia (principal)
CPT/HCPCS: 36415; 80053; 85025

== ENCOUNTER 2021-12-02 15:06 | Outpatient (REF) | payer MEDICARE, MEDICAID, SELFPAY ==
[2021-12-08 11:42] LABS: HPV mRNA E6/E7 rflx Not Detected (Not Detected)
== END 2021-12-02 15:07 | disposition home or self-care (01) ==
LOC: HO.LNP 15:06
PROVIDERS: Visit Provider Obstetrics & Gynecology
DX: Z01.419 Encounter for gynecological examination (general) (routine) without abnormal findings (principal); N95.0 Postmenopausal bleeding; Z11.51 Encounter for screening for human papillomavirus (HPV)
CPT/HCPCS: 58100; 87624; 88142; 88305; 99212

== ENCOUNTER 2021-12-04 11:31 | Outpatient (REF) | payer MEDICARE, MEDICAID, SELFPAY ==
--- NOTE | ~2021-12-04 | US_ITS ---
EXAMINATION: US RETROPERITONEAL LIMITED (RENAL ONLY) CLINICAL INFORMATION: Back pain. COMPARISON: Previous CT of the abdomen and pelvis July 2019 and renal ultrasound November 2015 TECHNIQUE: Grayscale and color imaging of the kidneys FINDINGS: RIGHT KIDNEY: 10.3 x 4.4 x 4.8 cm (SAG x AP x TRV). The kidney is normal in size, contour, and echogenicity. Renal cortical thickness is normal. There is a 2 mm echogenic density with twinkle artifact in the lateral midpole questionable for a small stone. No hydronephrosis. LEFT KIDNEY: 9.7 x 4.5 x 4.5 cm (SAG x AP x TRV). The kidney is normal in size, contour, and echogenicity. Renal cortical thickness is normal. No calculi or focal parenchymal lesions. No hydronephrosis. US/US renal BI IMPRESSION: Question small right renal stone.
== END 2021-12-04 11:32 | disposition home or self-care (01) ==
LOC: HO.HMGCX 11:31
PROVIDERS: PCP Internal Medicine; Visit Provider Internal Medicine
DX: M54.9 Dorsalgia, unspecified (principal); Z87.442 Personal history of urinary calculi
CPT/HCPCS: 76775

== ENCOUNTER → 2021-12-15 13:01 | Outpatient (BNVA) | payer MEDICARE, MEDICAID, SELFPAY | PROVIDERS: PCP Internal Medicine; Visit Provider Obstetrics & Gynecology | DX: N95.0 Postmenopausal bleeding (principal); Z98.890 Other specified postprocedural states | CPT/HCPCS: 99212 ==

== ENCOUNTER 2022-04-01 06:19 | Outpatient (REF) | payer MEDICARE, MEDICAID, SELFPAY ==
[2022-04-01 11:47] LABS: Estimated Average Glucose 120 mg/dL; Hemoglobin A1c % 5.8 %
[2022-04-01 11:55] LABS: Alanine Aminotransferase 15 U/L (0-31); Albumin Level 4.1 g/dL (3.5-5.0); Alkaline Phosphatase 64 U/L (39-117); Anion Gap 14 (12-20); Aspartate Amino Transferase 16 U/L (5-31); Bilirubin Total 1.1 mg/dL (0.0-1.0); Blood Urea Nitrogen 14 mg/dL (9-16); Calcium 9.6 mg/dL (8.4-10.2); Carbon Dioxide 26 mmol/L (22-29); Chloride 105 mmol/L (96-108); Cholesterol 244 mg/dL; Estimated Glomerular Filt Rate 58; Glucose Fasting 125 mg/dL (60-99); HDL Cholesterol 58 mg/dL; LDL Cholesterol Calculated 156 mg/dl; Potassium 4.7 mmol/L (3.3-5.1); Sodium 140 mmol/L (135-145); Total Protein 6.4 g/dL (6.5-8.0); Triglycerides 152 mg/dL
[2022-04-01 13:36] LABS: Creatinine Urine 38.12 mg/dL; Microalbumin Urine < 5.0 mg/L
== END 2022-04-01 06:20 | disposition home or self-care (01) ==
LOC: HO.HMGCLDS 06:19
PROVIDERS: PCP Internal Medicine; Visit Provider Internal Medicine
DX: E78.9 Disorder of lipoprotein metabolism, unspecified (principal); F41.1 Generalized anxiety disorder; I10 Essential (primary) hypertension; M62.838 Other muscle spasm; N28.9 Disorder of kidney and ureter, unspecified; E11.9 Type 2 diabetes mellitus without complications
CPT/HCPCS: 36415; 80053; 80061; 82043; 83036

== ENCOUNTER → 2022-05-14 11:21 | Outpatient (BNVA) | payer MEDICARE, MEDICAID, SELFPAY | PROVIDERS: PCP Internal Medicine; Visit Provider Nurse Practitioner Family | DX: M54.16 Radiculopathy, lumbar region (principal); M47.816 Spondylosis without myelopathy or radiculopathy, lumbar region; M96.1 Postlaminectomy syndrome, not elsewhere classified; M25.551 Pain in right hip; M25.552 Pain in left hip | CPT/HCPCS: 99202 ==

== ENCOUNTER 2022-05-19 11:27 | Outpatient (REF) | payer MEDICARE, MEDICAID, SELFPAY ==
--- NOTE | ~2022-05-19 | XR_ITS ---
EXAMINATION: LUMBAR SACRAL SPINE AND BILATERAL HIPS CLINICAL INFORMATION: Radiculopathy, lumbar region COMPARISON: CT abdomen and pelvis from August 17, 2019 TECHNIQUE: 6 view lumbosacral spine, AP pelvis, 2 views of each hip. FINDINGS: Lumbar spine: There are 5 nonrib bearing lumbar vertebra. No acute fracture, spondylolisthesis, or spondylolysis is appreciated. There is significant disc space narrowing at the L5-S1 disc space level. Bilateral facet arthropathy is seen L4-S1. No instability is seen on flexion-extension views. Pedicles are intact. AP pelvis: There is no evidence of acute fracture or diastases of the pelvis. There is some sclerosis of the sacroiliac joints left greater than right but without evidence of fusion or widening. Changes of enthesopathy are present about the iliac bones. Collar spurring is seen about the left hip joint with no significant joint narrowing appreciated on this view. There is severe degenerative change of the right hip with loss of joint space and marginal spurring and irregularity as well as subchondral cyst formation and prominent spurring. Left hip: 2 views of the left hip do not demonstrate any evidence of acute fracture or dislocation. There is some spurring about the greater trochanter. There is some mild collar spurring present. There appears to be some mild narrowing of the inferior joint space. Right hip: There is severe degenerative change of the right hip joint space with loss of joint space superiorly with cortical irregularity, sclerosis, and subchondral cyst formation. There is prominent spurring about the joint and femoral head. No acute fracture or dislocation is seen. No femoral head collapse is noted. XR/XR lumbar spine 6V w bending IMPRESSION: Severe degenerative joint disease of the right hip. Significant degenerative change of the L5-S1 disc space and bilateral facet arthropathy L4-S1 most significant at L5-S1. No acute fracture, spondylolisthesis, or spondylolysis identified. No evidence of acute fracture or diastases of the pelvis. Mild degenerative change of the left hip.
--- NOTE | ~2022-05-19 | XR_ITS ---
EXAMINATION: LUMBAR SACRAL SPINE AND BILATERAL HIPS CLINICAL INFORMATION: Radiculopathy, lumbar region COMPARISON: CT abdomen and pelvis from August 17, 2019 TECHNIQUE: 6 view lumbosacral spine, AP pelvis, 2 views of each hip. FINDINGS: Lumbar spine: There are 5 nonrib bearing lumbar vertebra. No acute fracture, spondylolisthesis, or spondylolysis is appreciated. There is significant disc space narrowing at the L5-S1 disc space level. Bilateral facet arthropathy is seen L4-S1. No instability is seen on flexion-extension views. Pedicles are intact. AP pelvis: There is no evidence of acute fracture or diastases of the pelvis. There is some sclerosis of the sacroiliac joints left greater than right but without evidence of fusion or widening. Changes of enthesopathy are present about the iliac bones. Collar spurring is seen about the left hip joint with no significant joint narrowing appreciated on this view. There is severe degenerative change of the right hip with loss of joint space and marginal spurring and irregularity as well as subchondral cyst formation and prominent spurring. Left hip: 2 views of the left hip do not demonstrate any evidence of acute fracture or dislocation. There is some spurring about the greater trochanter. There is some mild collar spurring present. There appears to be some mild narrowing of the inferior joint space. Right hip: There is severe degenerative change of the right hip joint space with loss of joint space superiorly with cortical irregularity, sclerosis, and subchondral cyst formation. There is prominent spurring about the joint and femoral head. No acute fracture or dislocation is seen. No femoral head collapse is noted. XR/XR hip BI w PEL1V IMPRESSION: Severe degenerative joint disease of the right hip. Significant degenerative change of the L5-S1 disc space and bilateral facet arthropathy L4-S1 most significant at L5-S1. No acute fracture, spondylolisthesis, or spondylolysis identified. No evidence of acute fracture or diastases of the pelvis. Mild degenerative change of the left hip.
== END 2022-05-19 11:28 | disposition home or self-care (01) ==
LOC: HO.HMGCX 11:27
PROVIDERS: PCP Internal Medicine; Visit Provider Nurse Practitioner Family
DX: M25.551 Pain in right hip (principal); M25.552 Pain in left hip; M54.16 Radiculopathy, lumbar region; M47.816 Spondylosis without myelopathy or radiculopathy, lumbar region; M96.1 Postlaminectomy syndrome, not elsewhere classified
CPT/HCPCS: 72114; 73521

== ENCOUNTER → 2022-05-27 16:01 | Outpatient (BNVA) | payer MEDICARE, MEDICAID, SELFPAY | PROVIDERS: PCP Internal Medicine; Visit Provider Nurse Practitioner Family | DX: M25.551 Pain in right hip (principal); M25.552 Pain in left hip; M54.16 Radiculopathy, lumbar region; M96.1 Postlaminectomy syndrome, not elsewhere classified | CPT/HCPCS: Q3014 ==

== ENCOUNTER 2022-10-19 12:51 | Outpatient (REF) | payer MEDICARE, SELFPAY ==
--- NOTE | ~2022-10-19 | MM_ITS ---
EXAMINATION: MM SCREENING DIGITAL BREAST TOMOSYNTHESIS, BILATERAL CLINICAL INFORMATION: Screening. Asymptomatic. COMPARISON: Mammography: 2019 this study is compared with prior exams dating back to 2019. TECHNIQUE: Digital breast tomosynthesis is performed in both the craniocaudal and mediolateral oblique views along with computer-aided detection (CAD). Synthesized 2D images are generated from the tomosynthesis. FINDINGS: The breasts are almost entirely fatty (ACR BI-RADS breast composition Category a). There are no significant masses, abnormal calcifications, or other abnormalities. MM/MM tomosynthesis screening BI IMPRESSION: No mammographic evidence of malignancy. ASSESSMENT: BI-RADS BI-RADS 1 - Negative RECOMMENDATION: Routine annual mammography screening. 1 year F/U This examination should not preclude the clinical evaluation of a suspicious palpable abnormality. This patient's information was entered into a reminder system with a target due date for their next mammogram.
== END 2022-10-19 12:52 | disposition home or self-care (01) ==
LOC: HO.MAMMO 12:51
PROVIDERS: PCP Internal Medicine; Visit Provider Internal Medicine
DX: Z12.31 Encounter for screening mammogram for malignant neoplasm of breast (principal)
CPT/HCPCS: 77063; 77067

== ENCOUNTER → 2022-10-19 13:00 | Outpatient (BNV) | payer MEDICARE, SELFPAY | PROVIDERS: PCP Internal Medicine; Visit Provider Radiology Diagnostic Radiology | DX: Z12.31 Encounter for screening mammogram for malignant neoplasm of breast (principal) | CPT/HCPCS: 77063; 77067 ==

== ENCOUNTER 2022-10-28 08:16 | Outpatient (AMB) | payer MEDICARE, SELFPAY ==
--- NOTE | 2022-10-28 11:24 | A.OFFPC_ITS ---
Intake Visit Reasons: Anxiety~ [facility] [phone] Allergies Iodinated Contrast Media [IV CONTRAST] Allergy (Severe, Verified 10/28/22 11:24) SEVERE HIVES aspirin [ASPIRIN] Allergy (Intermediate, Verified 10/28/22 11:24) LIPS SWELL Penicillins [PENICILLINS] Allergy (Intermediate, Verified 10/28/22 11:24) Facial Swelling Sulfa (Sulfonamide Antibiotics) [SULFA (SULFONAMIDE ANTIBIOTICS)] Allergy (Intermediate, Verified 10/28/22 11:24) HIVES cephalexin [From Keflex] Allergy (Unknown, Verified 10/28/22 11:24) hives clindamycin Allergy (Unknown, Verified 10/28/22 11:24) Diarrhea cyclobenzaprine [From Flexeril] Allergy (Unknown, Verified 10/28/22 11:24) loopy egg [EGG] Allergy (Unknown, Verified 10/28/22 11:24) GI UPSET penicillin V Allergy (Unknown, Verified 10/28/22 11:24) facial swelling oxycodone [From PERCOCET] Adverse Reaction (Severe, Verified 10/28/22 11:24) HALLUCINATIONS monosodium glutamate Adverse Reaction (Intermediate, Verified 10/28/22 11:24) HEADACHE nut - unspecified [nut] Adverse Reaction (Intermediate, Verified 10/28/22 11:24) GI UPSET nitrofurantoin [From Macrobid] Adverse Reaction (Verified 10/28/22 11:24) Vomiting iodine IVP Allergy (Unknown, Uncoded 06/25/22 12:05) hives shellfish Allergy (Unknown, Uncoded 06/25/22 12:05) swelling, hives Clindamycin Phosphate Adverse Reaction (Unknown, Uncoded 06/25/22 12:05) diarrhea eggs Adverse Reaction (Unknown, Uncoded 06/25/22 12:05) GI upset Flexeril Adverse Reaction (Unknown, Uncoded 06/25/22 12:05) loopy MSG Adverse Reaction (Unknown, Uncoded 06/25/22 12:05) headaches Medication List - Last Reconciled 10/28/22 by Pablito Mcarthur MD amitriptyline 10 mg PO BEDTIME PRN 90 days atenolol 50 mg PO DAILY 90 days blood sugar diagnostic (FreeStyle Lite Strips) tid prn cholecalciferol (vitamin D3) 50 mcg PO DAILY clopidogrel 75 mg PO DAILY diazepam (Valium) 5 mg PO BEDTIME PRN 30 days lancets (OneTouch Delica Lancets) test blood sugar daily rosuvastatin 20 mg PO DAILY sertraline 25 mg PO DAILY Tobacco use date assessed: 10/28/22 Fall risk assessment: No Falls in past year Last assessed Fall Risk: 10/28/22 Dental Screening Dental Screen Date: 10/28/22 Did you have a dental visit in the last 12 months?: No Did you have a dental problem in the last 6 months where you did not have access to dental care?: No Was dental information given to patient?: Patient has dentist [phone] HPI Details Patient is 67-year-old female who suffers from anxiety disorder She was taking fluoxetine at some point but then she stopped taking when she felt better Lately she has been having anxiety and panic-like feelings visit Patient will see therapist she is already in touch with our behavior health coordinator Meanwhile I am starting her on sertraline 25 mg Few tablets of Valium 5 mg sent as well while sertraline is taking its affect patient may take value as needed if she is having a panic disorder. Patient is aware of side effects like , this medication has a risk of being habit forming, slowing of relfexes, dizziness, and its controlled PFSH Medical History Tobacco abuse Dyspepsia Vitamin D deficiency Hypertension, essential Anxiety, generalized Surgical History History of lithotripsy Cataracts, bilateral History of laminectomy Hx of cholecystectomy Family History Father HTN (hypertension) Diabetes mellitus Hyperlipidemia Parkinson disease Dementia Myocardial infarction Mother Lupus HTN (hypertension) Fracture, hip Maternal Grandfather No problems noted. Maternal Grandmother No problems noted. Paternal Grandfather No problems noted. Paternal Grandmother No problems noted. Brother No problems noted. Sister No problems noted. Daughter No problems noted. Daughter No problems noted. Other Mental health disorder Social History Housing: House Alcohol intake: never Patient Tobacco Use Status: Former Tobacco user Quit Date: 2020 Smoked: 40 e-Cigarette/Vaping Use: Never Used Second Hand Smoke Exposure: No service: No Current occupational status: retired Cognitive needs: No Hearing needs: No Vision needs: Yes Questionnaire Thrive Questionnaire Date Thrive assessed: 06/25/22 AUDIT C Alcohol Use Questionnaire (AUDIT-C) 1. How often do you have a drink containing alcohol?: Never 3. How often do you have six or more drinks on one occasion?: Never Total Score: 0 Score Reviewed/Action Taken: Yes JOSE-7 AMB Questionnaire JOSE-7 Date JOSE - 7 assessed: 06/25/22 Source: Developed by Drs. Bernardino Goodrich, Inna Sandoval, Oliver Esquivel and colleagues, with an educational reema from [employer]. Review of Systems Const Denies chills and Denies fever(s) ENT Denies epistaxis and Denies nasal discharge Card Denies chest pain Resp Denies chest congestion, Denies cough and Denies hemoptysis GI Denies diarrhea and Denies nausea Skin/Breast Denies rash Neuro Reports no additional complaints Psych Reports no additional complaints Endo Reports no additional complaints Physical exam (Primary Care) Tobacco/Smoking Status: Tobacco use Status Tobacco use date assessed 10/28/22 10/28/22 11:28 Patient Tobacco Use Status Former Tobacco user 10/28/22 11:28 e-Cigarette/Vaping Use Never Used 10/28/22 11:28 Thrive Assessment: Date of Thrive Assessment Date Thrive assessed 06/25/22 10/28/22 11:28 Telehealth Telehealth Location of provider rendering services: practice address Location of patient: address on file Patient Identification confirmed using: Name, : Yes Telehealth method: voice only Patient verbally consented to treatment: Yes Patient verbally consented to billing insurance company: Yes Patient informed of any privacy concerns related to visit: Yes Minutes spent on Phone/Video with Pt.: 16 Assessment and Plan Assessment & Plan (1) Panic anxiety syndrome: Code(s): F41.0 - Panic disorder [episodic paroxysmal anxiety] Plan Patient is 67-year-old female who suffers from anxiety disorder She was taking fluoxetine at some point but then she stopped taking when she felt better Lately she has been having anxiety and panic-like feelings visit Patient will see therapist she is already in touch with our behavior health coordinator Meanwhile I am starting her on sertraline 25 mg Few tablets of Valium 5 mg sent as well while sertraline is taking its affect patient may take value as needed if she is having a panic disorder. Patient is aware of side effects like , this medication has a risk of being habit forming, slowing of relfexes, dizziness, and its controlled Medications: New sertraline 25 mg PO DAILY 30 tabs 0RF Refilled diazepam (Valium) 5 mg PO BEDTIME PRN 10 tabs 0RF sleep 30 days Coding Level of Care Code Tele Est Pt Level 3 (46150) Diagnoses Panic anxiety syndrome F41.0
== END 2022-10-28 16:43 | disposition home or self-care (01) ==
LOC: HO.HMGC 08:16
PROVIDERS: PCP Internal Medicine; Visit Provider Internal Medicine
DX: F41.0 Panic disorder [episodic paroxysmal anxiety] (principal)
CPT/HCPCS: 99442

== ENCOUNTER 2022-11-09 09:28 | Outpatient (REF) | payer MEDICARE, SELFPAY ==
[2022-11-09 11:35] LABS: MANUAL DIFF FLAG NO
[2022-11-09 11:43] LABS: Basophils Absolute Auto 0.1 X10*3/uL (0.0-0.2); Basophils Percent Auto 0.8 % (0-2); Eosinophils Absolute Auto 0.1 X10*3/uL (0.0-0.4); Eosinophils Percent Auto 1.3 % (0-4); Hemoglobin 15.2 g/dl (12.0-16.0); Imm Gran Abs Auto 0.03 X10*3/uL (0.00-0.03); Imm Gran Pct Auto 0.4 % (0.0-0.4); Lymphocytes Absolute Auto 2.8 X10*3/uL (1.2-4.9); Lymphocytes Percent Auto 36.4 % (20-40); Mean Corpuscular Hemoglobin 29.5 pg (27.0-33.0); Mean Corpuscular Volume 89.1 fL (80.0-98.0); Mean Platelet Volume 9.9 fL (9.4-12.3); Monocytes Absolute Auto 0.5 X10*3/uL (0.1-1.2); Monocytes Percent Auto 6.4 % (2-11); Neutrophils Absolute Auto 4.3 x10*3/uL (2.0-8.3); Neutrophils Percent Auto 54.7 % (45-73); Platelet Count 266 X10*3/uL (160-400); Red Blood Count 5.16 X10*6/uL (4.20-5.50); Red Cell Distribution Width 12.6 % (11.0-16.0); White Blood Count 7.8 X10*3/uL (4.8-10.8)
[2022-11-09 12:10] LABS: Estimated Average Glucose 123 mg/dL; Hemoglobin A1c % 5.9 % (<6.0)
[2022-11-09 13:00] LABS: Alanine Aminotransferase 19 U/L (0-31); Albumin Level 4.1 g/dL (3.5-5.0); Alkaline Phosphatase 70 U/L (39-117); Anion Gap 13 (12-20); Aspartate Amino Transferase 20 U/L (5-31); Blood Urea Nitrogen 13 mg/dL (9-16); Calcium 9.7 mg/dL (8.4-10.2); Carbon Dioxide 25 mmol/L (22-29); Chloride 103 mmol/L (96-108); Cholesterol 188 mg/dL (<200); Estimated Glomerular Filt Rate 60; Glucose Fasting 119 mg/dL (60-99); HDL Cholesterol 54 mg/dL (>40); LDL Cholesterol Calculated 108 mg/dL (<100); Potassium 4.2 mmol/L (3.3-5.1); Sodium 137 mmol/L (135-145); Total Protein 6.8 g/dL (6.5-8.0); Triglycerides 133 mg/dL (<150)
== END 2022-11-09 09:29 | disposition home or self-care (01) ==
LOC: HO.HMGCLDS 09:28
PROVIDERS: PCP Internal Medicine; Visit Provider Internal Medicine
DX: Z00.01 Encounter for general adult medical examination with abnormal findings (principal); I10 Essential (primary) hypertension; E78.9 Disorder of lipoprotein metabolism, unspecified; E66.09 Other obesity due to excess calories; E11.9 Type 2 diabetes mellitus without complications; N28.9 Disorder of kidney and ureter, unspecified; M54.16 Radiculopathy, lumbar region; M25.551 Pain in right hip; M25.552 Pain in left hip; Z53.20 Procedure and treatment not carried out because of patient's decision for unspecified reasons
CPT/HCPCS: 36415; 80053; 80061; 83036; 85025

== ENCOUNTER 2022-11-10 11:57 | Outpatient (AMB) | payer MEDICARE, SELFPAY ==
--- NOTE | 2022-11-10 12:00 | MHC.PC.OV ---
Vital Signs 11/10/22 12:01 Height 5 ft 5 in Weight 208 lb 4 oz BMI 34.7 BP 137/78 Blood Pressure Location Lt brachial Position Sitting Pulse 74 Pulse Source Pulse Oximeter Pulse Oximetry (%) 97 Oxygen Delivery Method Room Air Intake Visit Reasons: 3 Month follow up Allergies Iodinated Contrast Media [IV CONTRAST] Allergy (Severe, Verified 11/10/22 12:02) SEVERE HIVES aspirin [ASPIRIN] Allergy (Intermediate, Verified 11/10/22 12:02) LIPS SWELL Penicillins [PENICILLINS] Allergy (Intermediate, Verified 11/10/22 12:02) Facial Swelling Sulfa (Sulfonamide Antibiotics) [SULFA (SULFONAMIDE ANTIBIOTICS)] Allergy (Intermediate, Verified 11/10/22 12:02) HIVES cephalexin [From Keflex] Allergy (Unknown, Verified 11/10/22 12:02) hives clindamycin Allergy (Unknown, Verified 11/10/22 12:02) Diarrhea cyclobenzaprine [From Flexeril] Allergy (Unknown, Verified 11/10/22 12:02) loopy egg [EGG] Allergy (Unknown, Verified 11/10/22 12:02) GI UPSET penicillin V Allergy (Unknown, Verified 11/10/22 12:02) facial swelling oxycodone [From PERCOCET] Adverse Reaction (Severe, Verified 11/10/22 12:02) HALLUCINATIONS monosodium glutamate Adverse Reaction (Intermediate, Verified 11/10/22 12:02) HEADACHE nut - unspecified [nut] Adverse Reaction (Intermediate, Verified 11/10/22 12:02) GI UPSET nitrofurantoin [From Macrobid] Adverse Reaction (Verified 11/10/22 12:02) Vomiting iodine IVP Allergy (Unknown, Uncoded 11/10/22 12:02) hives shellfish Allergy (Unknown, Uncoded 11/10/22 12:02) swelling, hives Clindamycin Phosphate Adverse Reaction (Unknown, Uncoded 11/10/22 12:02) diarrhea eggs Adverse Reaction (Unknown, Uncoded 11/10/22 12:02) GI upset Flexeril Adverse Reaction (Unknown, Uncoded 11/10/22 12:02) loopy MSG Adverse Reaction (Unknown, Uncoded 11/10/22 12:02) headaches Medication List - Last Reconciled 11/10/22 by Pablito Mcarthur MD amitriptyline 10 mg PO BEDTIME PRN 90 days atenolol 50 mg PO DAILY 90 days blood sugar diagnostic (FreeStyle Lite Strips) tid prn cholecalciferol (vitamin D3) 50 mcg PO DAILY clopidogrel 75 mg PO DAILY diazepam (Valium) 5 mg PO BEDTIME PRN 30 days lancets (OneTouch Delica Lancets) test blood sugar daily rosuvastatin 20 mg PO DAILY sertraline 25 mg PO DAILY Tobacco use date assessed: 11/10/22 Fall risk assessment: No Falls in past year Last assessed Fall Risk: 11/10/22 Dental Screening Dental Screen Date: 11/10/22 Did you have a dental visit in the last 12 months?: Yes Did you have a dental problem in the last 6 months where you did not have access to dental care?: No Was dental information given to patient?: No HPI 3 Month follow up HPI Details Patient is a 67-year-old female came in today for her regular follow-up appointment Patient was having anxiety panic-like symptoms earlier this month, I started her on sertraline 25 mg and gave her few tablets of Valium She is doing much better she has not taken any Valium. She would like to continue with the sertraline 25 mg Diet-controlled diabetes mellitus: She had labs done recently hemoglobin A1c is 5.9 she has modified her diet GFR has improved as well to 60 now LDL is stable Blood pressure is controlled at 137/78 Continue atenolol 50 mg, and rosuvastatin 20 mg for lipid control She would like to start counseling but has not been able to get in touch with 1, she will meet with our behavior health coordinator today Difficulty sleeping at night patient is on amitriptyline 10 mg which is also helping her with joint aches and pains Follow-up 3 months [facility] Medical History Tobacco abuse Dyspepsia Vitamin D deficiency Hypertension, essential Anxiety, generalized Surgical History History of lithotripsy Cataracts, bilateral History of laminectomy Hx of cholecystectomy Family History Father HTN (hypertension) Diabetes mellitus Hyperlipidemia Parkinson disease Dementia Myocardial infarction Mother Lupus HTN (hypertension) Fracture, hip Maternal Grandfather No problems noted. Maternal Grandmother No problems noted. Paternal Grandfather No problems noted. Paternal Grandmother No problems noted. Brother No problems noted. Sister No problems noted. Daughter No problems noted. Daughter No problems noted. Other Mental health disorder Social History Housing: House Alcohol intake: never Patient Tobacco Use Status: Former Tobacco user Quit Date: 2020 Smoked: 40 e-Cigarette/Vaping Use: Never Used Second Hand Smoke Exposure: No service: No Current occupational status: retired Cognitive needs: No Hearing needs: No Vision needs: Yes Questionnaire Thrive Questionnaire Date Thrive assessed: 06/25/22 AUDIT C Alcohol Use Questionnaire (AUDIT-C) 1. How often do you have a drink containing alcohol?: Never 3. How often do you have six or more drinks on one occasion?: Never Total Score: 0 JOSE-7 AMB Questionnaire JOSE-7 Date JOSE - 7 assessed: 06/25/22 Source: Developed by Drs. Bernardino Goodrich, Inna Sandoval, Oliver Esquivel and colleagues, with an educational reema from [employer]. Review of Systems Const Denies chills and Denies fever(s) ENT Denies epistaxis and Denies nasal discharge Card Denies chest pain Resp Denies chest congestion, Denies cough and Denies hemoptysis GI Denies diarrhea and Denies nausea Skin/Breast Denies rash Neuro Reports no additional complaints Psych Reports no additional complaints Endo Reports no additional complaints Physical exam (Primary Care) Vital Signs: Last Vital Signs Pulse 74 11/10/22 12:01 BP 137/78 11/10/22 12:01 Pulse Ox 97 11/10/22 12:01 Oxygen Delivery Method Room Air 11/10/22 12:01 BMI result Body Mass Index 34.7 Tobacco/Smoking Status: Tobacco use Status Tobacco use date assessed 11/10/22 11/10/22 12:04 Patient Tobacco Use Status Former Tobacco user 11/10/22 12:02 e-Cigarette/Vaping Use Never Used 11/10/22 12:02 Thrive Assessment: Date of Thrive Assessment Date Thrive assessed 06/25/22 11/10/22 12:02 Const General: cooperative, comfortable and no acute distress Orientation/consciousness: patient oriented x3 HENMT Head: Yes normocephalic Eyes General: appearance normal, both eyes and all related structures Neck Neck: Yes supple Resp Effort & Inspection: normal respiratory effort, no cough and no stridor Cardio Rhythm: regular rhythm Heart sounds: S1 normal heart sound present and S2 normal heart sound present Skin General skin exam: turgor normal Neuro General: patient oriented x3, tone normal and moves all extremities Extrem Right lower extremity: no edema Left lower extremity: no edema Assessment and Plan Assessment & Plan (1) Hypertension, essential: Code(s): I10 - Essential (primary) hypertension (2) Lipid disorder: Code(s): E78.9 - Disorder of lipoprotein metabolism, unspecified (3) Obesity due to excess calories: Code(s): E66.09 - Other obesity due to excess calories Qualifiers: Body mass index: BMI 34.0-34.9 Obesity classification: adult class 1 (BMI 30 - 34.9) Serious obesity comorbidity presence: with serious comorbidity Qualified Code(s): E66.09 - Other obesity due to excess calories; Z68.34 - Body mass index [BMI] 34.0-34.9, adult (4) Diabetes mellitus: Code(s): E11.9 - Type 2 diabetes mellitus without complications Qualifiers: Diabetes mellitus complication status: without complication Diabetes mellitus correction insulin use: without watermaster use Diabetes mellitus type: type 2 Qualified Code(s): E11.9 - Type 2 diabetes mellitus without complications (5) Panic anxiety syndrome: Code(s): F41.0 - Panic disorder [episodic paroxysmal anxiety] (6) Difficulty sleeping: Code(s): G47.9 - Sleep disorder, unspecified Plan Patient is a 67-year-old female came in today for her regular follow-up appointment Patient was having anxiety panic-like symptoms earlier this month, I started her on sertraline 25 mg and gave her few tablets of Valium She is doing much better she has not taken any Valium. She would like to continue with the sertraline 25 mg Diet-controlled diabetes mellitus: She had labs done recently hemoglobin A1c is 5.9 she has modified her diet GFR has improved as well to 60 now LDL is stable Blood pressure is controlled at 137/78 Continue atenolol 50 mg, and rosuvastatin 20 mg for lipid control She would like to start counseling but has not been able to get in touch with 1, she will meet with our behavior health coordinator today Difficulty sleeping at night patient is on amitriptyline 10 mg which is also helping her with joint aches and pains Follow-up 3 months Medications: Refilled amitriptyline 10 mg PO BEDTIME PRN 90 tabs 0RF pain 90 days M25.551 - Pain in right hip, M25.552 - Pain in left hip, M54.16 - Radiculopathy, lumbar region, M96.1 - Postlaminectomy syndrome, not elsewhere classified sertraline 25 mg PO DAILY 90 tabs 0RF Coding Level of Care Code Est Pt Level 4 (72462) Diagnoses Hypertension, essential I10 Lipid disorder E78.9 Class 1 obesity due to excess calories with serious comorbidity and body mass index (BMI) of 34.0 to 34.9 in adult E66.09; Z68.34 Body mass index: BMI 34.0-34.9 Obesity classification: adult class 1 (BMI 30 - 34.9) Serious obesity comorbidity presence: with serious comorbidity Type 2 diabetes mellitus without complication, without long-term current use of insulin E11.9 Diabetes mellitus complication status: without complication Diabetes mellitus correction insulin use: without correction use Diabetes mellitus type: type 2 Panic anxiety syndrome F41.0 Difficulty sleeping G47.9
[2022-11-10 12:01] VITALS: BP 137/78; PULSE 74; O2SAT 97; BMI 34.7
== END 2022-11-10 12:34 | disposition home or self-care (01) ==
PROVIDERS: PCP Internal Medicine; Visit Provider Internal Medicine
DX: I10 Essential (primary) hypertension (principal); E66.09 Other obesity due to excess calories; E11.9 Type 2 diabetes mellitus without complications; Z68.34 Body mass index [BMI] 34.0-34.9, adult; E78.9 Disorder of lipoprotein metabolism, unspecified; F41.0 Panic disorder [episodic paroxysmal anxiety]; G47.9 Sleep disorder, unspecified
CPT/HCPCS: 99214

== ENCOUNTER 2023-02-09 12:41 | Outpatient (AMB) | payer MEDICARE, SELFPAY ==
--- NOTE | 2023-02-09 12:46 | A.OFFPC_ITS ---
Vital Signs 02/09/23 12:47 Height 5 ft 5 in Weight 211 lb 2 oz BMI 35.1 BP 168/92 H Blood Pressure Location Rt brachial Position Sitting Pulse 82 Pulse Source Pulse Oximeter Pulse Oximetry (%) 99 Oxygen Delivery Method Room Air Intake Visit Reasons: 3 Month follow up Allergies Iodinated Contrast Media [IV CONTRAST] Allergy (Severe, Verified 02/09/23 12:47) SEVERE HIVES aspirin [ASPIRIN] Allergy (Intermediate, Verified 02/09/23 12:47) LIPS SWELL Penicillins [PENICILLINS] Allergy (Intermediate, Verified 02/09/23 12:47) Facial Swelling Sulfa (Sulfonamide Antibiotics) [SULFA (SULFONAMIDE ANTIBIOTICS)] Allergy (Intermediate, Verified 02/09/23 12:47) HIVES cephalexin [From Keflex] Allergy (Unknown, Verified 02/09/23 12:47) hives clindamycin Allergy (Unknown, Verified 02/09/23 12:47) Diarrhea cyclobenzaprine [From Flexeril] Allergy (Unknown, Verified 02/09/23 12:47) loopy egg [EGG] Allergy (Unknown, Verified 02/09/23 12:47) GI UPSET penicillin V Allergy (Unknown, Verified 02/09/23 12:47) facial swelling oxycodone [From PERCOCET] Adverse Reaction (Severe, Verified 02/09/23 12:47) HALLUCINATIONS monosodium glutamate Adverse Reaction (Intermediate, Verified 02/09/23 12:47) HEADACHE nut - unspecified [nut] Adverse Reaction (Intermediate, Verified 02/09/23 12:47) GI UPSET nitrofurantoin [From Macrobid] Adverse Reaction (Verified 02/09/23 12:47) Vomiting iodine IVP Allergy (Unknown, Uncoded 11/10/22 12:02) hives shellfish Allergy (Unknown, Uncoded 11/10/22 12:02) swelling, hives Clindamycin Phosphate Adverse Reaction (Unknown, Uncoded 11/10/22 12:02) diarrhea eggs Adverse Reaction (Unknown, Uncoded 11/10/22 12:02) GI upset Flexeril Adverse Reaction (Unknown, Uncoded 11/10/22 12:02) loopy MSG Adverse Reaction (Unknown, Uncoded 11/10/22 12:02) headaches Medication List - Last Reconciled 02/09/23 by Pablito Mcarthur MD amitriptyline 10 mg PO BEDTIME PRN 90 days atenolol 50 mg PO DAILY 90 days blood sugar diagnostic (FreeStyle Lite Strips) tid prn cholecalciferol (vitamin D3) 50 mcg PO DAILY clopidogrel 75 mg PO DAILY diazepam (Valium) 5 mg PO BEDTIME PRN 30 days lancets (OneTouch Delica Lancets) test blood sugar daily rosuvastatin 20 mg PO DAILY sertraline 25 mg PO DAILY Tobacco use date assessed: 02/09/23 Fall risk assessment: No Falls in past year Last assessed Fall Risk: 02/09/23 Dental Screening Dental Screen Date: 02/09/23 Did you have a dental visit in the last 12 months?: No Did you have a dental problem in the last 6 months where you did not have access to dental care?: No Was dental information given to patient?: Patient declined HPI 3 Month follow up HPI Details Patient is a 67-year-old female came in today for her regular follow-up appointment Panic anxiety syndrome patient could not tolerate sertraline, she would like to go back on fluoxetine 10 mg she did very well on this medication in the past Prescription sent Diet-controlled diabetes mellitus: Hemoglobin A1c has been stable GFR stable LDL is stable Blood pressure is elevated today however it is running in 130s systolic at home patient is monitoring it regularly Continue atenolol 50 mg, and rosuvastatin 20 mg for lipid control Difficulty sleeping at night, patient is on amitriptyline 10 mg which is also helping her with joint aches and pains BMI elevated , patient is trying to lose wt Follow-up 3 months [facility] Medical History Tobacco abuse Dyspepsia Vitamin D deficiency Hypertension, essential Anxiety, generalized Surgical History History of lithotripsy Cataracts, bilateral History of laminectomy Hx of cholecystectomy Family History Father HTN (hypertension) Diabetes mellitus Hyperlipidemia Parkinson disease Dementia Myocardial infarction Mother Lupus HTN (hypertension) Fracture, hip Maternal Grandfather No problems noted. Maternal Grandmother No problems noted. Paternal Grandfather No problems noted. Paternal Grandmother No problems noted. Brother No problems noted. Sister No problems noted. Daughter No problems noted. Daughter No problems noted. Other Mental health disorder Social History Housing: House Alcohol intake: never Patient Tobacco Use Status: Former Tobacco user Quit Date: 2020 Years Smoked: 40 e-Cigarette/Vaping Use: Never Used Second Hand Smoke Exposure: No service: No Current occupational status: retired Cognitive needs: No Hearing needs: No Vision needs: Yes Questionnaire Thrive Questionnaire Date Thrive assessed: 06/25/22 JOSE-7 AMB Questionnaire JOSE-7 Date JOSE - 7 assessed: 06/25/22 Source: Developed by Drs. Bernardino Goodrich, Inna Sandoval, Oliver Esquivel and colleagues, with an educational reema from [employer]. Review of Systems Const Denies chills and Denies fever(s) ENT Denies epistaxis and Denies nasal discharge Card Denies chest pain Resp Denies chest congestion, Denies cough and Denies hemoptysis GI Denies diarrhea and Denies nausea Skin/Breast Denies rash Neuro Reports no additional complaints Psych Reports no additional complaints Endo Reports no additional complaints Physical exam (Primary Care) Vital Signs: Last Vital Signs Pulse 82 02/09/23 12:47 BP 168/92 H 02/09/23 12:47 Pulse Ox 99 02/09/23 12:47 Oxygen Delivery Method Room Air 02/09/23 12:47 BMI result Body Mass Index 35.1 Tobacco/Smoking Status: Tobacco use Status Tobacco use date assessed 02/09/23 02/09/23 12:49 Patient Tobacco Use Status Former Tobacco user 02/09/23 12:49 e-Cigarette/Vaping Use Never Used 02/09/23 12:49 Thrive Assessment: Date of Thrive Assessment Date Thrive assessed 06/25/22 02/09/23 12:49 Const General: cooperative, comfortable and no acute distress Orientation/consciousness: patient oriented x3 HENMT Head: Yes normocephalic Eyes General: appearance normal, both eyes and all related structures Neck Neck: Yes supple Resp Effort & Inspection: normal respiratory effort, no cough and no stridor Cardio Rhythm: regular rhythm Heart sounds: S1 normal heart sound present and S2 normal heart sound present Skin General skin exam: turgor normal Neuro General: patient oriented x3, tone normal and moves all extremities Extrem Right lower extremity: no edema Left lower extremity: no edema Assessment and Plan Assessment & Plan (1) Diabetes mellitus: Code(s): E11.9 - Type 2 diabetes mellitus without complications Qualifiers: Diabetes mellitus complication status: without complication Diabetes mellitus group home insulin use: without watermelon harvesting supervisor use Diabetes mellitus type: type 2 Qualified Code(s): E11.9 - Type 2 diabetes mellitus without complications (2) Hypertension, essential: Code(s): I10 - Essential (primary) hypertension (3) Lipid disorder: Code(s): E78.9 - Disorder of lipoprotein metabolism, unspecified (4) Obesity due to excess calories: Code(s): E66.09 - Other obesity due to excess calories Qualifiers: Body mass index: BMI 34.0-34.9 Obesity classification: adult class 1 (BMI 30 - 34.9) Serious obesity comorbidity presence: with serious comorbidity Qualified Code(s): E66.09 - Other obesity due to excess calories; Z68.34 - Body mass index [BMI] 34.0-34.9, adult (5) Panic anxiety syndrome: Code(s): F41.0 - Panic disorder [episodic paroxysmal anxiety] (6) Difficulty sleeping: Code(s): G47.9 - Sleep disorder, unspecified (7) Bilateral hip joint arthritis: Code(s): M16.0 - Bilateral primary osteoarthritis of hip Plan Patient is a 67-year-old female came in today for her regular follow-up appointment Panic anxiety syndrome patient could not tolerate sertraline, she would like to go back on fluoxetine 10 mg she did very well on this medication in the past Prescription sent Diet-controlled diabetes mellitus: Hemoglobin A1c has been stable GFR stable LDL is stable Blood pressure is elevated today however it is running in 130s systolic at home patient is monitoring it regularly Continue atenolol 50 mg, and rosuvastatin 20 mg for lipid control Difficulty sleeping at night, patient is on amitriptyline 10 mg which is also helping her with joint aches and pains BMI elevated , patient is trying to lose wt Patient is having severe pain both hips due to osteoarthritis She is requesting handicap placard which I have filled for her Follow-up 3 months Orders: Orders Comprehensive Wren. Panel Fast Today E11.9 - Type 2 diabetes mellitus without complications, E66.09 - Other obesity due to excess calories, E78.9 - Disorder of lipoprotein metabolism, unspecified, F41.0 - Panic disorder [episodic paroxysmal anxiety], G47.9 - Sleep disorder, unspecified, I10 - Essential (primary) hypertension, M16.0 - Bilateral primary osteoarthritis of hip Lipid Panel Today E11.9 - Type 2 diabetes mellitus without complications, E66.09 - Other obesity due to excess calories, E78.9 - Disorder of lipoprotein metabolism, unspecified, F41.0 - Panic disorder [episodic paroxysmal anxiety], G47.9 - Sleep disorder, unspecified, I10 - Essential (primary) hypertension, M16.0 - Bilateral primary osteoarthritis of hip Complete Blood Count Auto Diff Today E11.9 - Type 2 diabetes mellitus without complications, E66.09 - Other obesity due to excess calories, E78.9 - Disorder of lipoprotein metabolism, unspecified, F41.0 - Panic disorder [episodic paroxysmal anxiety], G47.9 - Sleep disorder, unspecified, I10 - Essential ([place]) hypertension, M16.0 - Bilateral primary osteoarthritis of hip TSH reflex Free T4 Today E11.9 - Type 2 diabetes mellitus without complications, E66.09 - Other obesity due to excess calories, E78.9 - Disorder of lipoprotein metabolism, unspecified, F41.0 - Panic disorder [episodic paroxysmal anxiety], G47.9 - Sleep disorder, unspecified, I10 - Essential (primary) hypertension, M16.0 - Bilateral primary osteoarthritis of hip Medications: New buspirone 5 mg PO .q am PRN 30 tabs 0RF anxiety 30 days fluoxetine 10 mg PO DAILY 90 caps 1RF Refilled amitriptyline 10 mg PO BEDTIME PRN 90 tabs 0RF pain 90 days M25.551 - Pain in right hip, M25.552 - Pain in left hip, M54.16 - Radiculopathy, lumbar region, M96.1 - Postlaminectomy syndrome, not elsewhere classified Discontinued diazepam (Valium) Discontinued Reason: Doctor's Order 5 mg PO BEDTIME 30 days PRN 10 tabs 0RF sleep sertraline Discontinued Reason: Doctor's Order 25 mg PO DAILY 90 tabs 0RF Coding Level of Care Code Est Pt Level 4 (70342) Diagnoses Type 2 diabetes mellitus without complication, without long-term current use of insulin E11.9 Diabetes mellitus complication status: without complication Diabetes mellitus watermelon harvesting supervisor insulin use: without watermelon harvesting supervisor use Diabetes mellitus type: type 2 Hypertension, essential I10 Lipid disorder E78.9 Class 1 obesity due to excess calories with serious comorbidity and body mass index (BMI) of 34.0 to 34.9 in adult E66.09; Z68.34 Body mass index: BMI 34.0-34.9 Obesity classification: adult class 1 (BMI 30 - 34.9) Serious obesity comorbidity presence: with serious comorbidity Panic anxiety syndrome F41.0 Difficulty sleeping G47.9 Bilateral hip joint arthritis M16.0
[2023-02-09 12:47] VITALS: BP 168/92; PULSE 82; O2SAT 99; BMI 35.1
== END 2023-02-09 16:50 | disposition home or self-care (01) ==
PROVIDERS: PCP Internal Medicine; Visit Provider Internal Medicine
DX: E11.9 Type 2 diabetes mellitus without complications (principal); I10 Essential (primary) hypertension; E78.9 Disorder of lipoprotein metabolism, unspecified; E66.09 Other obesity due to excess calories; Z68.34 Body mass index [BMI] 34.0-34.9, adult; F41.0 Panic disorder [episodic paroxysmal anxiety]; G47.9 Sleep disorder, unspecified; M16.0 Bilateral primary osteoarthritis of hip
CPT/HCPCS: 99214

== ENCOUNTER 2023-06-16 10:33 | Outpatient (REF) | payer MEDICARE, SELFPAY ==
[2023-06-16 13:30] LABS: MANUAL DIFF FLAG NO
[2023-06-16 13:47] LABS: Basophils Absolute Auto 0.1 X10*3/uL (0.0-0.2); Basophils Percent Auto 0.7 % (0-2); Eosinophils Absolute Auto 0.1 X10*3/uL (0.0-0.4); Eosinophils Percent Auto 0.7 % (0-4); Hematocrit 47.6 % (37.0-47.0); Hemoglobin 15.5 g/dl (12.0-16.0); Imm Gran Abs Auto 0.04 X10*3/uL (0.00-0.03); Imm Gran Pct Auto 0.5 % (0.0-0.4); Lymphocytes Absolute Auto 2.5 X10*3/uL (1.2-4.9); Lymphocytes Percent Auto 28.5 % (20-40); Mean Corpuscular HGB Conc 32.6 g/dl (31.0-35.0); Mean Corpuscular Hemoglobin 29.3 pg (27.0-33.0); Mean Platelet Volume 9.4 fL (9.4-12.3); Monocytes Absolute Auto 0.5 X10*3/uL (0.1-1.2); Monocytes Percent Auto 5.6 % (2-11); Neutrophils Absolute Auto 5.5 x10*3/uL (2.0-8.3); Platelet Count 264 X10*3/uL (160-400); Red Blood Count 5.29 X10*6/uL (4.20-5.50); Red Cell Distribution Width 12.6 % (11.0-16.0); White Blood Count 8.6 X10*3/uL (4.8-10.8)
[2023-06-16 14:02] LABS: Alanine Aminotransferase 19 U/L (0-31); Albumin Level 4.2 g/dL (3.5-5.0); Alkaline Phosphatase 69 U/L (39-117); Anion Gap 11 (12-20); Aspartate Amino Transferase 21 U/L (5-31); Bilirubin Total 0.9 mg/dL (0.0-1.0); Blood Urea Nitrogen 15 mg/dL (9-16); Calcium 9.8 mg/dL (8.4-10.2); Carbon Dioxide 29 mmol/L (22-29); Chloride 103 mmol/L (96-108); Cholesterol 244 mg/dL (<200); Estimated Glomerular Filt Rate 52; Glucose Fasting 147 mg/dL (60-99); HDL Cholesterol 55 mg/dL (>40); LDL Cholesterol Calculated 160 mg/dL (<100); Sodium 138 mmol/L (135-145); Triglycerides 148 mg/dL (<150)
[2023-06-16 14:21] LABS: TSH reflex Free T4 1.53 uIU/mL (0.32-4.0)
== END 2023-06-16 10:34 | disposition home or self-care (01) ==
LOC: HO.HMGCLDS 10:33
PROVIDERS: PCP Internal Medicine; Visit Provider Internal Medicine
DX: M16.0 Bilateral primary osteoarthritis of hip (principal); G47.9 Sleep disorder, unspecified; F41.0 Panic disorder [episodic paroxysmal anxiety]; E11.9 Type 2 diabetes mellitus without complications; E66.09 Other obesity due to excess calories; E78.9 Disorder of lipoprotein metabolism, unspecified; I10 Essential (primary) hypertension
CPT/HCPCS: 36415; 80053; 80061; 84443; 85025

== ENCOUNTER 2023-06-17 12:28 | Outpatient (AMB) | payer MEDICARE, SELFPAY ==
[2023-06-17 12:34] VITALS: BP 188/96; PULSE 74; O2SAT 98; BMI 35.0
--- NOTE | 2023-06-17 12:34 | MHC.PC.OV ---
Vital Signs 06/17/23 12:34 Height 5 ft 5 in Weight 210 lb 2 oz BMI 35.0 BP 188/96 H Blood Pressure Location Lt brachial Position Sitting Pulse 74 Pulse Source Pulse Oximeter Pulse Oximetry (%) 98 Oxygen Delivery Method Room Air Intake Visit Reasons: 6 Month follow up Allergies Iodinated Contrast Media [IV CONTRAST] Allergy (Severe, Verified 06/17/23 12:35) SEVERE HIVES aspirin [ASPIRIN] Allergy (Intermediate, Verified 06/17/23 12:35) LIPS SWELL Penicillins [PENICILLINS] Allergy (Intermediate, Verified 06/17/23 12:35) Facial Swelling Sulfa (Sulfonamide Antibiotics) [SULFA (SULFONAMIDE ANTIBIOTICS)] Allergy (Intermediate, Verified 06/17/23 12:35) HIVES cephalexin [From Keflex] Allergy (Unknown, Verified 06/17/23 12:35) hives clindamycin Allergy (Unknown, Verified 06/17/23 12:35) Diarrhea cyclobenzaprine [From Flexeril] Allergy (Unknown, Verified 06/17/23 12:35) loopy egg [EGG] Allergy (Unknown, Verified 06/17/23 12:35) GI UPSET penicillin V Allergy (Unknown, Verified 06/17/23 12:35) facial swelling oxycodone [From PERCOCET] Adverse Reaction (Severe, Verified 06/17/23 12:35) HALLUCINATIONS monosodium glutamate Adverse Reaction (Intermediate, Verified 06/17/23 12:35) HEADACHE nut - unspecified [nut] Adverse Reaction (Intermediate, Verified 06/17/23 12:35) GI UPSET nitrofurantoin [From Macrobid] Adverse Reaction (Verified 06/17/23 12:35) Vomiting iodine IVP Allergy (Unknown, Uncoded 11/10/22 12:02) hives shellfish Allergy (Unknown, Uncoded 11/10/22 12:02) swelling, hives Clindamycin Phosphate Adverse Reaction (Unknown, Uncoded 11/10/22 12:02) diarrhea eggs Adverse Reaction (Unknown, Uncoded 11/10/22 12:02) GI upset Flexeril Adverse Reaction (Unknown, Uncoded 11/10/22 12:02) loopy MSG Adverse Reaction (Unknown, Uncoded 11/10/22 12:02) headaches Medication List - Last Reconciled 06/17/23 by Pablito Mcarthur MD amitriptyline 10 mg PO BEDTIME PRN 90 days atenolol 50 mg PO DAILY 90 days blood sugar diagnostic (FreeStyle Lite Strips) tid prn cholecalciferol (vitamin D3) 50 mcg PO DAILY clopidogrel 75 mg PO DAILY fluoxetine 10 mg PO DAILY lancets (OneTouch Delica Lancets) test blood sugar daily rosuvastatin 20 mg PO DAILY Tobacco use date assessed: 06/17/23 Fall risk assessment: No Falls in past year Last assessed Fall Risk: 06/17/23 Dental Screening Dental Screen Date: 06/17/23 Did you have a dental visit in the last 12 months?: No Did you have a dental problem in the last 6 months where you did not have access to dental care?: No Was dental information given to patient?: Patient declined HPI 6 Month follow up HPI Details Patient is a 68-year-old female came in today for her regular follow-up appointment Panic anxiety syndrome her blood pressure is always high when she comes to doctor's office She is currently on fluoxetine 10 mg, patient used to be on 20 mg of fluoxetine but we had to reduce the dose at it was interacting with her blood thinner I have sent lorazepam 0.5 mg that she can take when she is going to have doctor's appointment. Diet-controlled diabetes mellitus: Hemoglobin A1c has been stable at 6.2 today GFR stable LDL is stable Continue atenolol 50 mg, and rosuvastatin 20 mg for lipid control Difficulty sleeping at night, patient is on amitriptyline 10 mg which is also helping her with joint aches and pains BMI elevated , patient is trying to lose wt Patient is having severe pain both hips due to osteoarthritis Follow-up 3 months [facility] Medical History Tobacco abuse Dyspepsia Vitamin D deficiency Hypertension, essential Anxiety, generalized Surgical History History of lithotripsy Cataracts, bilateral History of laminectomy Hx of cholecystectomy Family History Father HTN (hypertension) Diabetes mellitus Hyperlipidemia Parkinson disease Dementia Myocardial infarction Mother Lupus HTN (hypertension) Fracture, hip Maternal Grandfather No problems noted. Maternal Grandmother No problems noted. Paternal Grandfather No problems noted. Paternal Grandmother No problems noted. Brother No problems noted. Sister No problems noted. Daughter No problems noted. Daughter No problems noted. Other Mental health disorder Social History Housing: House Alcohol intake: never Patient Tobacco Use Status: Former Tobacco user Quit Date: 2020 Smoked: 40 e-Cigarette/Vaping Use: Never Used Second Hand Smoke Exposure: No service: No Current occupational status: retired Cognitive needs: No Hearing needs: No Vision needs: Yes Questionnaire Thrive Questionnaire Date Thrive assessed: 06/25/22 AUDIT C Alcohol Use Questionnaire (AUDIT-C) 1. How often do you have a drink containing alcohol?: Never 3. How often do you have six or more drinks on one occasion?: Never Total Score: 0 Score Reviewed/Action Taken: Yes JOSE-7 AMB Questionnaire JOSE-7 Date JOSE - 7 assessed: 06/25/22 Source: Developed by Drs. Bernardino Goodrich, Inna Sandoval, Oliver Esquivel and colleagues, with an educational reema from [employer]. Review of Systems Const Denies chills and Denies fever(s) ENT Denies epistaxis and Denies nasal discharge Card Denies chest pain Resp Denies chest congestion, Denies cough and Denies hemoptysis GI Denies diarrhea and Denies nausea Skin/Breast Denies rash Neuro Reports no additional complaints Psych Reports no additional complaints Endo Reports no additional complaints Physical exam (Primary Care) Vital Signs: Last Vital Signs Pulse 74 06/17/23 12:34 BP 188/96 H 06/17/23 12:34 Pulse Ox 98 06/17/23 12:34 Oxygen Delivery Method Room Air 06/17/23 12:34 BMI result Body Mass Index 35.0 Tobacco/Smoking Status: Tobacco use Status Tobacco use date assessed 06/17/23 06/17/23 12:36 Patient Tobacco Use Status Former Tobacco user 06/17/23 12:36 e-Cigarette/Vaping Use Never Used 06/17/23 12:36 Thrive Assessment: Date of Thrive Assessment Date Thrive assessed 06/25/22 06/17/23 12:36 Const General: cooperative, comfortable and no acute distress Orientation/consciousness: patient oriented x3 HENMT Head: Yes normocephalic Eyes General: appearance normal, both eyes and all related structures Neck Neck: Yes supple Resp Effort & Inspection: normal respiratory effort, no cough and no stridor Cardio Rhythm: regular rhythm Heart sounds: S1 normal heart sound present and S2 normal heart sound present Skin General skin exam: turgor normal Neuro General: patient oriented x3, tone normal and moves all extremities Extrem Right lower extremity: no edema Left lower extremity: no edema Results AMB Hemoglobin A1c AMB Hemoglobin A1c 6.2 % Last Edit by SYL Gamez on 06/17/23 12:53 Results Reviewed Results Reviewed: Laboratory Last Values Hgb A1c (Clinic) 6.2 % (4.0-6.0) H 06/17/23 12:52 Assessment and Plan Assessment & Plan (1) Diabetes mellitus: Code(s): E11.9 - Type 2 diabetes mellitus without complications Qualifiers: Diabetes mellitus complication status: without complication Diabetes mellitus bed bug exterminator insulin use: without usp use Diabetes mellitus type: type 2 Qualified Code(s): E11.9 - Type 2 diabetes mellitus without complications (2) Hypertension, essential: Code(s): I10 - Essential (primary) hypertension (3) Lipid disorder: Code(s): E78.9 - Disorder of lipoprotein metabolism, unspecified (4) Obesity due to excess calories: Code(s): E66.09 - Other obesity due to excess calories Qualifiers: Body mass index: BMI 34.0-34.9 Obesity classification: adult class 1 (BMI 30 - 34.9) Serious obesity comorbidity presence: with serious comorbidity Qualified Code(s): E66.09 - Other obesity due to excess calories; Z68.34 - Body mass index [BMI] 34.0-34.9, adult (5) Panic anxiety syndrome: Code(s): F41.0 - Panic disorder [episodic paroxysmal anxiety] (6) Difficulty sleeping: Code(s): G47.9 - Sleep disorder, unspecified (7) Bilateral hip joint arthritis: Code(s): M16.0 - Bilateral primary osteoarthritis of hip Plan Patient is a 68-year-old female came in today for her regular follow-up appointment Panic anxiety syndrome her blood pressure is always high when she comes to doctor's office She is currently on fluoxetine 10 mg, patient used to be on 20 mg of fluoxetine but we had to reduce the dose at it was interacting with her blood thinner I have sent lorazepam 0.5 mg that she can take when she is going to have doctor's appointment. Diet-controlled diabetes mellitus: Hemoglobin A1c has been stable at 6.2 today GFR stable LDL is stable Continue atenolol 50 mg, and rosuvastatin 20 mg for lipid control Difficulty sleeping at night, patient is on amitriptyline 10 mg which is also helping her with joint aches and pains BMI elevated , patient is trying to lose wt Patient is having severe pain both hips due to osteoarthritis Follow-up 3 months Orders: Orders AMB Hemoglobin A1c Today Z13.9 - Encounter for screening, unspecified Medications: New lorazepam 0.5 mg PO DAILY PRN 30 tabs 0RF anxiety Coding Level of Care Code Est Pt Level 4 (91352) Diagnoses Type 2 diabetes mellitus without complication, without long-term current use of insulin E11.9 Diabetes mellitus complication status: without complication Diabetes mellitus bed bug exterminator insulin use: without usp use Diabetes mellitus type: type 2 Hypertension, essential I10 Lipid disorder E78.9 Class 1 obesity due to excess calories with serious comorbidity and body mass index (BMI) of 34.0 to 34.9 in adult E66.09; Z68.34 Body mass index: BMI 34.0-34.9 Obesity classification: adult class 1 (BMI 30 - 34.9) Serious obesity comorbidity presence: with serious comorbidity Panic anxiety syndrome F41.0 Difficulty sleeping G47.9 Bilateral hip joint arthritis M16.0
== END 2023-06-17 14:02 | disposition home or self-care (01) ==
PROVIDERS: PCP Internal Medicine; Visit Provider Internal Medicine
DX: E11.9 Type 2 diabetes mellitus without complications (principal); I10 Essential (primary) hypertension; E66.09 Other obesity due to excess calories; Z68.34 Body mass index [BMI] 34.0-34.9, adult; E78.9 Disorder of lipoprotein metabolism, unspecified; F41.0 Panic disorder [episodic paroxysmal anxiety]; G47.9 Sleep disorder, unspecified; M16.0 Bilateral primary osteoarthritis of hip
CPT/HCPCS: 83036; 99214

== ENCOUNTER 2023-07-19 13:18 | Outpatient (REF) | payer MEDICARE, SELFPAY | END 2023-07-19 13:19 | disposition home or self-care (01) | LOC: HO.LNP 13:18 | PROVIDERS: Visit Provider Internal Medicine | DX: N30.00 Acute cystitis without hematuria (principal) | CPT/HCPCS: 87086 ==

== ENCOUNTER 2023-07-19 15:04 | Outpatient (AMB) | payer MEDICARE, SELFPAY ==
--- NOTE | 2023-07-19 15:08 | MHC.OFFWIV ---
Intake Intake Visit Reasons: EST/uti (lobby) Patient Tobacco Use Status: Former Tobacco user Quit Date: 2020 Allergies Iodinated Contrast Media [IV CONTRAST] Allergy (Severe, Verified 07/19/23 14:07) SEVERE HIVES aspirin [ASPIRIN] Allergy (Intermediate, Verified 07/19/23 14:07) LIPS SWELL Penicillins [PENICILLINS] Allergy (Intermediate, Verified 07/19/23 14:07) Facial Swelling Sulfa (Sulfonamide Antibiotics) [SULFA (SULFONAMIDE ANTIBIOTICS)] Allergy (Intermediate, Verified 07/19/23 14:07) HIVES cephalexin [From Keflex] Allergy (Unknown, Verified 07/19/23 14:07) hives clindamycin Allergy (Unknown, Verified 07/19/23 14:07) Diarrhea cyclobenzaprine [From Flexeril] Allergy (Unknown, Verified 07/19/23 14:07) loopy egg [EGG] Allergy (Unknown, Verified 07/19/23 14:07) GI UPSET penicillin V Allergy (Unknown, Verified 07/19/23 14:07) facial swelling oxycodone [From PERCOCET] Adverse Reaction (Severe, Verified 07/19/23 14:07) HALLUCINATIONS monosodium glutamate Adverse Reaction (Intermediate, Verified 07/19/23 14:07) HEADACHE nut - unspecified [nut] Adverse Reaction (Intermediate, Verified 07/19/23 14:07) GI UPSET nitrofurantoin [From Macrobid] Adverse Reaction (Verified 07/19/23 14:07) Vomiting iodine IVP Allergy (Unknown, Uncoded 11/10/22 12:02) hives shellfish Allergy (Unknown, Uncoded 11/10/22 12:02) swelling, hives Clindamycin Phosphate Adverse Reaction (Unknown, Uncoded 11/10/22 12:02) diarrhea eggs Adverse Reaction (Unknown, Uncoded 11/10/22 12:02) GI upset Flexeril Adverse Reaction (Unknown, Uncoded 11/10/22 12:02) loopy MSG Adverse Reaction (Unknown, Uncoded 11/10/22 12:02) headaches Medication List - Last Reconciled 07/19/23 by Pablito Mcarthur MD amitriptyline 10 mg PO BEDTIME PRN 90 days atenolol 50 mg PO DAILY 90 days blood sugar diagnostic (FreeStyle Lite Strips) tid prn cholecalciferol (vitamin D3) 50 mcg PO DAILY clopidogrel 75 mg PO DAILY fluoxetine 10 mg PO DAILY lancets (OneTouch Delica Lancets) test blood sugar daily lorazepam 0.5 mg PO DAILY PRN rosuvastatin 20 mg PO DAILY HPI EST/uti (lobby) HPI Details Patient is 68 came today to be evaluated for possible UTI Patient says that she a pelvic exam by Gynecology and after that she started having symptoms yesterday She is having frequency of urination and dysuria There is no fever no chills no nausea vomiting no back pain. UA shows 3+ leuk esterase I have sent Cipro with the patient 500 mg b.i.d. for 5 days We will send urine for culture as well. [facility], [facility] Medical History Tobacco abuse Dyspepsia Vitamin D deficiency Hypertension, essential Anxiety, generalized Surgical History History of lithotripsy Cataracts, bilateral History of laminectomy Hx of cholecystectomy Family History Father HTN (hypertension) Diabetes mellitus Hyperlipidemia Parkinson disease Dementia Myocardial infarction Mother Lupus HTN (hypertension) Fracture, hip Maternal Grandfather No problems noted. Maternal Grandmother No problems noted. Paternal Grandfather No problems noted. Paternal Grandmother No problems noted. Brother No problems noted. Sister No problems noted. Daughter No problems noted. Daughter No problems noted. Other Mental health disorder Social History Housing: House Alcohol intake: never Patient Tobacco Use Status: Former Tobacco user Quit Date: 2020 Years Smoked: 40 e-Cigarette/Vaping Use: Never Used Second Hand Smoke Exposure: No service: No Current occupational status: retired Cognitive needs: No Hearing needs: No Vision needs: Yes Review of Systems Const All systems reviewed & are unremarkable except as noted in HPI and below Physical Exam Const General: no acute distress Orientation/consciousness: patient oriented x3 Eyes General: appearance normal, both eyes and all related structures Resp Effort & Inspection: normal respiratory effort and able to speak in complete sentences General: Yes no CVA tenderness Back/Spine/Pelvis Back: no CVA tenderness Neuro General: patient oriented x3 Psych Mental Status: mental status grossly normal Results AMB Urinalysis, Automated UA Leukoctes 500 Mary/uL Last Edit by Paulina Morris MA on 07/19/23 15:11 UA Nitrite Negative Last Edit by Paulina Morris MA on 07/19/23 15:11 UA Urobilinogen 0.2 mg/dL Last Edit by Paulina Morris MA on 07/19/23 15:11 UA Protein 15 mg/dL Last Edit by Paulina Morris MA on 07/19/23 15:11 UA pH 6.0 Last Edit by Paulina Morris MA on 07/19/23 15:11 UA Blood 25 Rosalio/uL Last Edit by Paulina Morris MA on 07/19/23 15:11 UA Specific [place] 1.015 Last Edit by Paulina Morris MA on 07/19/23 15:11 UA Ketone Negative Last Edit by Paulina Morris MA on 07/19/23 15:11 UA Bilirubin 0 mg/dL Last Edit by Paulina Morris MA on 07/19/23 15:11 UA Glucose 0 mg/dL Last Edit by Paulina Morris MA on 07/19/23 15:11 Results Reviewed Results Reviewed: Laboratory Last Values Urine pH (Auto) 6.0 07/19/23 15:08 Specific [place] (Auto) 1.015 07/19/23 15:08 Urine Protein (Auto) 15 mg/dL 07/19/23 15:08 Glucose (UA)(Auto) 0 mg/dL 07/19/23 15:08 Urine Ketones (Auto) Negative 07/19/23 15:08 Urine Blood (Auto) 25 Rosalio/uL 07/19/23 15:08 Urine Nitrite (Auto) Negative 07/19/23 15:08 Urine Bilirubin (Auto) 0 mg/dL 07/19/23 15:08 Urine Urobilinogen (Auto) 0.2 mg/dL 07/19/23 15:08 Leukocyte Esterase (Auto) 500 Mary/uL 07/19/23 15:08 Assessment & Plan Assessment & Plan (1) Cystitis, acute: Code(s): N30.00 - Acute cystitis without hematuria Qualifiers: Hematuria presence: with hematuria Qualified Code(s): N30.01 - Acute cystitis with hematuria Plan Patient is 68 came today to be evaluated for possible UTI Patient says that she a pelvic exam by Gynecology and after that she started having symptoms yesterday She is having frequency of urination and dysuria There is no fever no chills no nausea vomiting no back pain. UA shows 3+ leuk esterase I have sent Cipro with the patient 500 mg b.i.d. for 5 days We will send urine for culture as well. Orders: Orders Urine Culture Today N30.00 - Acute cystitis without hematuria Medications: New ciprofloxacin HCl 500 mg PO BID 10 tabs 0RF 5 days Coding Level of Care Code Est Pt Level 3 (06676) Diagnoses Acute cystitis with hematuria N30.01 Hematuria presence: with hematuria
== END 2023-07-19 16:08 | disposition home or self-care (01) ==
PROVIDERS: PCP Internal Medicine; Visit Provider Internal Medicine
DX: N30.01 Acute cystitis with hematuria (principal)
CPT/HCPCS: 99213

== ENCOUNTER 2023-08-17 12:35 | Outpatient (AMB) | payer MEDICARE, SELFPAY ==
--- NOTE | 2023-08-17 12:38 | A.OFFPC_ITS ---
Vital Signs 08/17/23 12:39 Height 5 ft 5 in Weight 211 lb 4 oz BMI 35.2 BP 166/90 H Blood Pressure Location Rt brachial Position Sitting Pulse 76 Pulse Source Pulse Oximeter Pulse Oximetry (%) 96 Oxygen Delivery Method Room Air Intake Visit Reasons: 9 Month follow up Allergies Iodinated Contrast Media [IV CONTRAST] Allergy (Severe, Verified 08/17/23 12:43) SEVERE HIVES aspirin [ASPIRIN] Allergy (Intermediate, Verified 08/17/23 12:43) LIPS SWELL Penicillins [PENICILLINS] Allergy (Intermediate, Verified 08/17/23 12:43) Facial Swelling Sulfa (Sulfonamide Antibiotics) [SULFA (SULFONAMIDE ANTIBIOTICS)] Allergy (Intermediate, Verified 08/17/23 12:43) HIVES cephalexin [From Keflex] Allergy (Unknown, Verified 08/17/23 12:43) hives clindamycin Allergy (Unknown, Verified 08/17/23 12:43) Diarrhea cyclobenzaprine [From Flexeril] Allergy (Unknown, Verified 08/17/23 12:43) loopy egg [EGG] Allergy (Unknown, Verified 08/17/23 12:43) GI UPSET penicillin V Allergy (Unknown, Verified 08/17/23 12:43) facial swelling oxycodone [From PERCOCET] Adverse Reaction (Severe, Verified 08/17/23 12:43) HALLUCINATIONS monosodium glutamate Adverse Reaction (Intermediate, Verified 08/17/23 12:43) HEADACHE nut - unspecified [nut] Adverse Reaction (Intermediate, Verified 08/17/23 12:43) GI UPSET nitrofurantoin [From Macrobid] Adverse Reaction (Verified 08/17/23 12:43) Vomiting iodine IVP Allergy (Unknown, Uncoded 11/10/22 12:02) hives shellfish Allergy (Unknown, Uncoded 11/10/22 12:02) swelling, hives Clindamycin Phosphate Adverse Reaction (Unknown, Uncoded 11/10/22 12:02) diarrhea eggs Adverse Reaction (Unknown, Uncoded 11/10/22 12:02) GI upset Flexeril Adverse Reaction (Unknown, Uncoded 11/10/22 12:02) loopy MSG Adverse Reaction (Unknown, Uncoded 11/10/22 12:02) headaches Medication List - Last Reconciled 08/17/23 by Pablito Mcarthur MD amitriptyline 10 mg PO BEDTIME PRN 90 days atenolol 50 mg PO DAILY 90 days blood sugar diagnostic (FreeStyle Lite Strips) tid prn cholecalciferol (vitamin D3) 50 mcg PO DAILY clopidogrel 75 mg PO DAILY fluoxetine 10 mg PO DAILY lancets (OneTouch Delica Lancets) test blood sugar daily lorazepam 0.5 mg PO DAILY PRN rosuvastatin 20 mg PO DAILY Tobacco use date assessed: 08/17/23 Fall risk assessment: No Falls in past year Last assessed Fall Risk: 08/17/23 Dental Screening Dental Screen Date: 08/17/23 Did you have a dental visit in the last 12 months?: Yes Did you have a dental problem in the last 6 months where you did not have access to dental care?: No Was dental information given to patient?: Patient has dentist HPI 9 Month follow up HPI Details Patient is a 68-year-old female came in today for her regular follow-up appointment Patient says that she is feeling, she also drive sometimes short distances I did prescribe some lorazepam for the patient last visit to be taken before she comes in for DrGamaliel Visit As every time she comes in her blood pressure is very. However patient in take the medication as she did not know if she is driving or is driving I have told her to take that at night before next visit. She is monitoring blood pressure at home which is running 120s systolic. Patient is on atenolol 50 mg Lipid control with rosuvastatin 20 mg Panic anxiety syndrome She is currently on fluoxetine 10 mg Diet-controlled diabetes mellitus: Hemoglobin A1c has been stable in 6 range GFR stable LDL is stable Difficulty sleeping at night, patient is on amitriptyline 10 mg which is also helping her with joint aches and pains BMI elevated , patient is trying to lose wt Severe osteoarthritis bilateral hip managed with Tylenol. Coronary artery disease patient is on Plavix by Dr. Mio Webster cardiology Follow-up 3 months [facility] Medical History Tobacco abuse Dyspepsia Vitamin D deficiency Hypertension, essential Anxiety, generalized Surgical History History of lithotripsy Cataracts, bilateral History of laminectomy Hx of cholecystectomy Family History Father HTN (hypertension) Diabetes mellitus Hyperlipidemia Parkinson disease Dementia Myocardial infarction Mother Lupus HTN (hypertension) Fracture, hip Maternal Grandfather No problems noted. Maternal Grandmother No problems noted. Paternal Grandfather No problems noted. Paternal Grandmother No problems noted. Brother No problems noted. Sister No problems noted. Daughter No problems noted. Daughter No problems noted. Other Mental health disorder Social History Housing: House Alcohol intake: never Patient Tobacco Use Status: Former Tobacco user Years Smoked: 40 e-Cigarette/Vaping Use: Never Used Second Hand Smoke Exposure: No service: No Current occupational status: retired Cognitive needs: No Hearing needs: No Vision needs: Yes Questionnaire Thrive Questionnaire Date Thrive assessed: 06/25/22 AUDIT C Alcohol Use Questionnaire (AUDIT-C) 1. How often do you have a drink containing alcohol?: Never 3. How often do you have six or more drinks on one occasion?: Never Total Score: 0 Score Reviewed/Action Taken: Yes JOSE-7 AMB Questionnaire JOSE-7 Date JOSE - 7 assessed: 06/25/22 Source: Developed by Drs. Bernardino Goodrich, Inna Sandoval, Oliver Esquivel and colleagues, with an educational reema from [employer]. Review of Systems Const Denies chills and Denies fever(s) ENT Denies epistaxis and Denies nasal discharge Card Denies chest pain Resp Denies chest congestion, Denies cough and Denies hemoptysis GI Denies diarrhea and Denies nausea Skin/Breast Denies rash Neuro Reports no additional complaints Psych Reports no additional complaints Endo Reports no additional complaints Physical exam (Primary Care) Vital Signs: Last Vital Signs Pulse 76 08/17/23 12:39 BP 166/90 H 08/17/23 12:39 Pulse Ox 96 08/17/23 12:39 Oxygen Delivery Method Room Air 08/17/23 12:39 BMI result Body Mass Index 35.2 Tobacco/Smoking Status: Tobacco use Status Tobacco use date assessed 08/17/23 08/17/23 12:44 Patient Tobacco Use Status Former Tobacco user 08/17/23 12:40 e-Cigarette/Vaping Use Never Used 08/17/23 12:40 Thrive Assessment: Date of Thrive Assessment Date Thrive assessed 06/25/22 08/17/23 12:40 Const General: cooperative, comfortable and no acute distress Orientation/consciousness: patient oriented x3 HENMT Head: Yes normocephalic Eyes General: appearance normal, both eyes and all related structures Neck Neck: Yes supple Resp Effort & Inspection: normal respiratory effort, no cough and no stridor Cardio Rhythm: regular rhythm Heart sounds: S1 normal heart sound present and S2 normal heart sound present Skin General skin exam: turgor normal Neuro General: patient oriented x3, tone normal and moves all extremities Extrem Right lower extremity: no edema Left lower extremity: no edema Assessment and Plan Assessment & Plan (1) Diabetes mellitus: Code(s): E11.9 - Type 2 diabetes mellitus without complications Qualifiers: Diabetes mellitus complication status: without complication Diabetes mellitus ocean transportation intermediary insulin use: without [facility] use Diabetes mellitus type: type 2 Qualified Code(s): E11.9 - Type 2 diabetes mellitus without complicat ions (2) Hypertension, essential: Code(s): I10 - Essential (primary) hypertension (3) Lipid disorder: Code(s): E78.9 - Disorder of lipoprotein metabolism, unspecified (4) Obesity due to excess calories: Code(s): E66.09 - Other obesity due to excess calories Qualifiers: Body mass index: BMI 34.0-34.9 Obesity classification: adult class 1 (BMI 30 - 34.9) Serious obesity comorbidity presence: with serious comorbidity Qualified Code(s): E66.09 - Other obesity due to excess calories; Z68.34 - Body mass index [BMI] 34.0-34.9, adult (5) Panic anxiety syndrome: Code(s): F41.0 - Panic disorder [episodic paroxysmal anxiety] (6) Difficulty sleeping: Code(s): G47.9 - Sleep disorder, unspecified (7) Bilateral hip joint arthritis: Code(s): M16.0 - Bilateral primary osteoarthritis of hip (8) Coronary artery disease: Code(s): I25.10 - Atherosclerotic heart disease of [place] coronary artery without angina pectoris Qualifiers: Coronary Disease-Associated Artery/Lesion type: [place] artery [place] vs. transplanted heart: [place] heart Associated angina: without angina Qualified Code(s): I25.10 - Atherosclerotic heart disease of [place] coronary artery without angina pectoris Plan Patient is a 68-year-old female came in today for her regular follow-up appointment Patient says that she is feeling, she also drive sometimes short distances I did prescribe some lorazepam for the patient last visit to be taken before she comes in for Dr. Martin As every time she comes in her blood pressure is very. However patient in take the medication as she did not know if she is driving or is driving I have told her to take that at night before next visit. She is monitoring blood pressure at home which is running 120s systolic. Patient is on atenolol 50 mg Lipid control with rosuvastatin 20 mg Panic anxiety syndrome She is currently on fluoxetine 10 mg Diet-controlled diabetes mellitus: Hemoglobin A1c has been stable in 6 range GFR stable LDL is stable Difficulty sleeping at night, patient is on amitriptyline 10 mg which is also helping her with joint aches and pains BMI elevated , patient is trying to lose wt Severe osteoarthritis bilateral hip managed with Tylenol. Coronary artery disease patient is on Plavix by Dr. Mio Webster cardiology Follow-up 3 months Coding Level of Care Code Est Pt Level 4 (28962) Complex EM visit Add On G2211 Diagnoses Type 2 diabetes mellitus without complication, without long-term current use of insulin E11.9 Diabetes mellitus complication status: without complication Diabetes mellitus ocean transportation intermediary insulin use: without ocean transportation intermediary use Diabetes mellitus type: type 2 Hypertension, essential I10 Lipid disorder E78.9 Class 1 obesity due to excess calories with serious comorbidity and body mass index (BMI) of 34.0 to 34.9 in adult E66.09; Z68.34 Body mass index: BMI 34.0-34.9 Obesity classification: adult class 1 (BMI 30 - 34.9) Serious obesity comorbidity presence: with serious comorbidity Panic anxiety syndrome F41.0 Difficulty sleeping G47.9 Bilateral hip joint arthritis M16.0 Coronary artery disease involving [place] coronary artery of [place] heart without angina pectoris I25.10 Coronary Disease-Associated Artery/Lesion type: [place] artery [place] vs. transplanted heart: [place] heart Associated angina: without angina
[2023-08-17 12:39] VITALS: BP 166/90; PULSE 76; O2SAT 96; BMI 35.2
== END 2023-08-17 12:56 | disposition home or self-care (01) ==
PROVIDERS: PCP Internal Medicine; Visit Provider Internal Medicine
DX: E11.9 Type 2 diabetes mellitus without complications (principal); I10 Essential (primary) hypertension; E78.9 Disorder of lipoprotein metabolism, unspecified; E66.09 Other obesity due to excess calories; Z68.34 Body mass index [BMI] 34.0-34.9, adult; F41.0 Panic disorder [episodic paroxysmal anxiety]; G47.9 Sleep disorder, unspecified; M16.0 Bilateral primary osteoarthritis of hip; I25.10 Atherosclerotic heart disease of native coronary artery without angina pectoris
CPT/HCPCS: 99214; G2211

== ENCOUNTER 2024-06-06 14:57 | Outpatient (REF) | payer MEDICARE, SELFPAY ==
[2024-06-06 16:09] LABS: MANUAL DIFF FLAG NO
[2024-06-06 16:19] LABS: Basophils Absolute Auto 0.1 X10*3/uL (0.0-0.2); Basophils Percent Auto 0.9 % (0-2); Eosinophils Absolute Auto 0.1 X10*3/uL (0.0-0.4); Eosinophils Percent Auto 1.1 % (0-4); Hematocrit 48.2 % (37.0-47.0); Hemoglobin 15.8 g/dl (12.0-16.0); Imm Gran Abs Auto 0.04 X10*3/uL (0.00-0.03); Imm Gran Pct Auto 0.4 % (0.0-0.4); Lymphocytes Absolute Auto 3.1 X10*3/uL (1.2-4.9); Lymphocytes Percent Auto 31.7 % (20-40); Mean Corpuscular HGB Conc 32.8 g/dl (31.0-35.0); Mean Corpuscular Hemoglobin 28.3 pg (27.0-33.0); Mean Corpuscular Volume 86.2 fL (80.0-98.0); Mean Platelet Volume 8.7 fL (9.4-12.3); Monocytes Absolute Auto 0.5 X10*3/uL (0.1-1.2); Monocytes Percent Auto 5.3 % (2-11); Neutrophils Absolute Auto 5.9 x10*3/uL (2.0-8.3); Neutrophils Percent Auto 60.6 % (45-73); Platelet Count 287 X10*3/uL (160-400); Red Blood Count 5.59 X10*6/uL (4.20-5.50); Red Cell Distribution Width 12.6 % (11.0-16.0); White Blood Count 9.7 X10*3/uL (4.8-10.8)
[2024-06-06 16:29] LABS: Estimated Average Glucose 183 mg/dL; Hemoglobin A1C 268.0336 umol/L; Total Hemoglobin (HGBA1C) 4186.7988 umol/L
[2024-06-06 16:44] LABS: Alanine Aminotransferase 35 U/L (0-31); Albumin Level 4.2 g/dL (3.5-5.0); Alkaline Phosphatase 77 U/L (39-117); Anion Gap 13 (12-20); Aspartate Amino Transferase 31 U/L (5-31); Bilirubin Total 0.8 mg/dL (0.0-1.0); Blood Urea Nitrogen 10 mg/dL (9-16); Calcium 9.6 mg/dL (8.4-10.2); Carbon Dioxide 25 mmol/L (22-29); Chloride 101 mmol/L (96-108); Estimated Glomerular Filt Rate 56; Glucose Random 156 mg/dL (60-115); Potassium 4.4 mmol/L (3.3-5.1); Sodium 135 mmol/L (135-145); Total Protein 6.8 g/dL (6.5-8.0)
[2024-06-07 11:09] LABS: LDL Cholesterol Direct 175 mg/dL (<100)
== END 2024-06-06 14:58 | disposition home or self-care (01) ==
LOC: HO.HMGCLDS 14:57
PROVIDERS: PCP Internal Medicine; Visit Provider Internal Medicine
DX: I10 Essential (primary) hypertension (principal); F41.1 Generalized anxiety disorder; E55.9 Vitamin D deficiency, unspecified; R10.13 Epigastric pain; E66.09 Other obesity due to excess calories; Z68.34 Body mass index [BMI] 34.0-34.9, adult; E78.5 Hyperlipidemia, unspecified; M47.817 Spondylosis without myelopathy or radiculopathy, lumbosacral region; M16.0 Bilateral primary osteoarthritis of hip; Z79.899 Other long term (current) drug therapy
CPT/HCPCS: 36415; 80053; 83036; 83721; 85025; 96127; 99212

== ENCOUNTER 2024-06-06 14:57 | Outpatient (AMB) | payer MEDICARE, SELFPAY ==
--- NOTE | 2024-06-06 14:59 | A.OFFPC_ITS ---
Vital Signs 06/06/24 15:00 Height 5 ft 5 in Weight 218 lb 2 oz BMI 36.3 BP 172/90 H Blood Pressure Location Rt brachial Position Sitting Pulse 83 Pulse Source Pulse Oximeter Pulse Oximetry (%) 96 Oxygen Delivery Method Room Air Intake Visit Reasons: 9M F/U Allergies Iodinated Contrast Media [IV CONTRAST] Allergy (Severe, Verified 06/06/24 15:00) SEVERE HIVES aspirin [ASPIRIN] Allergy (Intermediate, Verified 06/06/24 15:00) LIPS SWELL Penicillins [PENICILLINS] Allergy (Intermediate, Verified 06/06/24 15:00) Facial Swelling Sulfa (Sulfonamide Antibiotics) [SULFA (SULFONAMIDE ANTIBIOTICS)] Allergy (Intermediate, Verified 06/06/24 15:00) HIVES cephalexin [From Keflex] Allergy (Unknown, Verified 06/06/24 15:00) hives clindamycin Allergy (Unknown, Verified 06/06/24 15:00) Diarrhea cyclobenzaprine [From Flexeril] Allergy (Unknown, Verified 06/06/24 15:00) loopy egg [EGG] Allergy (Unknown, Verified 06/06/24 15:00) GI UPSET penicillin V Allergy (Unknown, Verified 06/06/24 15:00) facial swelling oxycodone [From PERCOCET] Adverse Reaction (Severe, Verified 06/06/24 15:00) HALLUCINATIONS monosodium glutamate Adverse Reaction (Intermediate, Verified 06/06/24 15:00) HEADACHE nut - unspecified [nut] Adverse Reaction (Intermediate, Verified 06/06/24 15:00) GI UPSET nitrofurantoin [From Macrobid] Adverse Reaction (Verified 06/06/24 15:00) Vomiting iodine IVP Allergy (Unknown, Uncoded 06/06/24 15:00) hives shellfish Allergy (Unknown, Uncoded 06/06/24 15:00) swelling, hives Clindamycin Phosphate Adverse Reaction (Unknown, Uncoded 06/06/24 15:00) diarrhea eggs Adverse Reaction (Unknown, Uncoded 06/06/24 15:00) GI upset Flexeril Adverse Reaction (Unknown, Uncoded 06/06/24 15:00) loopy MSG Adverse Reaction (Unknown, Uncoded 06/06/24 15:00) headaches Medication List - Last Reconciled 06/06/24 by Pablito Mcarthur MD amitriptyline 10 mg PO BEDTIME PRN 90 days atenolol 50 mg PO DAILY 90 days blood sugar diagnostic (FreeStyle Lite Strips) tid prn cholecalciferol (vitamin D3) 50 mcg PO DAILY clopidogrel 75 mg PO DAILY fluoxetine 10 mg PO DAILY lancets (OneTouch Delica Lancets) test blood sugar daily lorazepam 0.5 mg PO DAILY PRN rosuvastatin 20 mg PO DAILY Tobacco use date assessed: 06/06/24 Fall risk assessment: No Falls in past year Last assessed Fall Risk: 06/06/24 Dental Screening Dental Screen Date: 06/06/24 Did you have a dental visit in the last 12 months?: Yes Did you have a dental problem in the last 6 months where you did not have access to dental care?: No Was dental information given to patient?: Patient has dentist HPI 9M F/U HPI Details History - The patient is a 69-year-old female pr esenting with anxiety and blood pressure concerns influenced by anxiety levels. Anxiety contributes to elevated blood pressure readings. - The patient has a history of essential hypertension, experiencing elevation in blood pressure due to anxiety, most notably prior to visits. Managed previously with increased atenolol dosage. - Reports generalized anxiety disorder, which exacerbates blood pressure readings, contributing to a nervous state. She has read that atenolol may help manage anxiety symptoms. - History of osteoarthritis, particularl y troubling in recent conversation due to the severe degeneration of joint disease noted in her lower back and hips. - Reports managing muscle discomfort and maintaining stability as osteoarthritis has worsened over time, considering assistive devices such as a walker because of severe arthritis, especially the right hip . - Severe degenerative joint disease and disc space complications (L5-S1) in the lower back, including bilateral nerve root impingement, previously evaluated with X-rays. - Experiences decreased functionality du ring walking or extended standing, primarily outdoors. Medications - Atenolol for hypertension management a nd anxiety, dosage typically increased transiently to manage spikes. - Fluoxetine at a current dose for anxie ty. - Amitriptyline for sleep improvement at night. - Clopidogrel as a blood thinner. - Lorazepam, not taken recently, for anx iety. - Rosuvastatin 20 mg for hyperlipidemia (cholesterol management). Problem List - Essential Hypertension - Generalized Anxiety Disorder - Osteoarthritis - Severe Degenerative Joint Disease - Severe Right Hip Arthritis - Arthritis of Lower Back with L5-S1 Dis c Space - Bilateral Nerve Root Impingement - Hyperlipidemia - Osteoarthritis of the Left Hip Diagnostic results - X-rays indicating severe degenerative joint disease of the lower back and hips, with specific findings of severe arthritis in the right hip and bilateral nerve root impingement at L5-S1 disc space. Patient Instructions - increase atenolol 100 mg from 50 mg - Consider increasing fluoxetine upon sy mptom evaluation and guidance.. - possible use of a walker is recommende d if needed. - Schedule follow-up appointment in 3 mo [facility] - Maintain the current use of amitriptyl ine for nocturnal symptoms. Review of Systems General: No fever no chills neurological: No headaches no dizziness ear nose throat: No sore throat no hearing difficulty no ear pain cardiovascular: No syncope, no chest pain, no palpitations gastrointestinal: No nausea vomiting or diarrhea endocrine: No polyuria polydipsia no heat intolerance genitourinary: No dysuria skin: No new complaints Physical Exam general: No acute distress HEENT: No acute findings neck: Supple respiratory system: Lungs are clear, able to talk in full sentences, no audible wheeze, no stridor cardiovascular: Heart is fine, S1-S2 gastrointestinal: No pain extremities: Severe arthritis of right hip, arthritis of left hip, arthritis of lower back with L5-S1 disc space FLY WINDER: Alert awake oriented x3 motor sensory intact skin: Normal turgor [facility] Medical History Tobacco abuse Dyspepsia Vitamin D deficiency Hypertension, essential Anxiety, generalized Surgical History History of lithotripsy Cataracts, bilateral History of laminectomy Hx of cholecystectomy Family History Father HTN (hypertension) Diabetes mellitus Hyperlipidemia Parkinson disease Dementia Myocardial infarction Mother Lupus HTN (hypertension) Fracture, hip Maternal Grandfather No problems noted. Maternal Grandmother No problems noted. Paternal Grandfather No problems noted. Paternal Grandmother No problems noted. Brother No problems noted. Sister No problems noted. Daughter No problems noted. Daughter No problems noted. Other Mental health disorder Social History Housing: House Alcohol intake: never Patient Tobacco Use Status: Former Tobacco user Years Smoked: 40 e-Cigarette/Vaping Use: Never Used Second Hand Smoke Exposure: No service: No Current occupational status: retired Cognitive needs: No Hearing needs: No Vision needs: Yes Questionnaire PHQ-9 Over the last 2 weeks, how often have you been bothered by any of the following problems? 1. Little interest or pleasure in doing things: not at all 2. Feeling down, depressed, or hopeless: not at all 3. Trouble falling or staying asleep, or sleeping too much: several days 4. Feeling tired or having little energy: not at all 5. Poor appetite or overeating: not at all 6. Feeling bad about yourself - or that you are a failure or have let yourself or your family down: not at all 7. Trouble concentrating on things, such as reading the newspaper or watching television: not at all 8. Moving or speaking so slowly that other people could have noticed. Or the opposite - being so fidgety or restless that you have been moving around a lot more than usual: not at all 9. Thoughts that you would be better off or of hurting yourself in some way: not at all Total score: 1 Depression Screening Interpretation: Negative Depression Screening Done: Yes 02919 - PHQ-9 Billing: Yes Source: Developed by Drs. Bernardino Goodrich, Inna Sandoval, Oliver Esquivel and colleagues, with an educational reema from [employer]. Thrive Questionnaire Date Thrive assessed: 06/06/24 I am a: Patient What is your living situation today?: I have a steady place to live Within the past 12 months, did the food you bought not last and you didn't have the money to get more?: Never true Within the past 12 months, did you worry whether your food would run out before you got money to buy more?: Never true Do you have trouble paying for medicines?: No Do you have trouble getting transportation to medical appointments?: No Do you have trouble paying your heating and electricity bill?: Yes Do you have trouble taking care of your child, family member or friend?: No Do you have trouble with day-to-day activities such as bathing, preparing meals, shopping, managing finances, etc.?: No Are you currently unemployed and looking for a job?: No Are you interested in more education?: No Please select the resources that you would like help with: None Currently or been in a relationship where the following occur: No concerns reported THRIVE Score: 1 AUDIT C Alcohol Use Questionnaire (AUDIT-C) 1. How often do you have a drink containing alcohol?: Never 3. How often do you have six or more drinks on one occasion?: Never Total Score: 0 Score Reviewed/Action Taken: Yes JOSE-7 AMB Questionnaire JOSE-7 Date JOSE - 7 assessed: 06/06/24 Feeling nervous, anxious, or on edge: 0 = Not at all Not being able to stop or control worryin = Not at all Worrying too much about different things: 0 = Not at all Trouble relaxin = Not at all Being so restless that it is hard to sit still: 0 = Not at all Becoming easily annoyed or irritable: 0 = Not at all Feeling afraid as if something awful might happen: 0 = Not at all Total JOSE-7 score (0-4 normal; 5-9 mild; 10-14 moderate; 15-21 severe): 0 Source: Developed by Drs. Bernardino Goodrich, Inna Sandoval, Oliver Esquivel and colleagues, with an educational reema from [employer]. JOSE-7 Assessment Billing JOSE-7 Assessment Tool: JOSE-7 Assessment 24118 Physical exam (Primary Care) Vital Signs: Last Vital Signs Pulse 83 06/06/24 15:00 BP 172/90 H 06/06/24 15:00 Pulse Ox 96 06/06/24 15:00 Oxygen Delivery Method Room Air 06/06/24 15:00 BMI result Body Mass Index 36.3 Tobacco/Smoking Status: Tobacco use Status Tobacco use date assessed 06/06/24 06/06/24 15:01 Patient Tobacco Use Status Former Tobacco user 06/06/24 14:59 e-Cigarette/Vaping Use Never Used 06/06/24 14:59 PHQ-9: PHQ-9 Score PHQ-9: Total score 1 06/06/24 15:16 Depression Screening Interpretation: Negative Thrive Assessment: Date of Thrive Assessment Date Thrive assessed 06/06/24 06/06/24 15:08 Currently or been in a relationship where the following occur: No concerns reported Coding Level of Care Code Est Pt Level 4 (48230) Complex EM visit Add On G2211 Diagnoses Hypertension, essential I10 Anxiety, generalized F41.1 Vitamin D deficiency E55.9 Dyspepsia R10.13 Lipid disorder E78.9 Class 1 obesity due to excess calories with serious comorbidity and body mass index (BMI) of 34.0 to 34.9 in adult E66.09; Z68.34 Body mass index: BMI 34.0-34.9 Obesity classification: adult class 1 (BMI 30 - 34.9) Serious obesity comorbidity presence: with serious comorbidity Additional Codes JOSE-7 Assessment Billing - JOSE-7 Assessment Tool: JOSE-7 Assessment 96285 ([id number]) PHQ-9 - 94222 - PHQ-9 Billing: Yes ([id number]) Assessment & Plan Assessment & Plan (1) Hypertension, essential: Code(s): I10 - Essential (primary) hypertension Category: Medical (2) Anxiety, generalized: Code(s): F41.1 - Generalized anxiety disorder Category: Medical (3) Vitamin D deficiency: Code(s): E55.9 - Vitamin D deficiency, unspecified Category: Medical (4) Dyspepsia: Code(s): R10.13 - Epigastric pain Category: Medical (5) Lipid disorder: Code(s): E78.9 - Disorder of lipoprotein metabolism, unspecified Category: Medical (6) Obesity due to excess calories: Code(s): E66.09 - Other obesity due to excess calories Category: Medical Qualifiers: Body mass index: BMI 34.0-34.9 Obesity classification: adult class 1 (BMI 30 - 34.9) Serious obesity comorbidity presence: with serious comorbidity Qualified Code(s): E66.09 - Other obesity due to excess calories; Z68.34 - Body mass index [BMI] 34.0-34.9, adult Plan History - The patient is a 69-year-old female presenting with anxiety and blood pressure concerns influenced by anxiety levels. Anxiety contributes to elevated blood pressure readings. - The patient has a history of essential hypertension, experiencing elevation in blood pressure due to anxiety, most notably prior to visits. Managed previously with increased atenolol dosage. - Reports generalized anxiety disorder, which exacerbates blood pressure readings, contributing to a nervous state. She has read that atenolol may help manage anxiety symptoms. - History of osteoarthritis, particularly troubling in recent conversation due to the severe degeneration of joint disease noted in her lower back and hips. - Reports managing muscle discomfort and maintaining stability as osteoarthritis has worsened over time, considering assistive devices such as a walker because of severe arthritis, especially the right hip . - Severe degenerative joint disease and disc space complications (L5-S1) in the lower back, including bilateral nerve root impingement, previously evaluated with X-rays. - Experiences decreased functionality during walking or extended standing, primarily outdoors. Medications - Atenolol for hypertension management and anxiety, dosage typically increased transiently to manage spikes. - Fluoxetine at a current dose for anxiety. - Amitriptyline for sleep improvement at night. - Clopidogrel as a blood thinner. - Lorazepam, not taken recently, for anxiety. - Rosuvastatin 20 mg for hyperlipidemia (cholesterol management). Problem List - Essential Hypertension - Generalized Anxiety Disorder - Osteoarthritis - Severe Degenerative Joint Disease - Severe Right Hip Arthritis - Arthritis of Lower Back with L5-S1 Disc Space - Bilateral Nerve Root Impingement - Hyperlipidemia - Osteoarthritis of the Left Hip Diagnostic results - X-rays indicating severe degenerative joint disease of the lower back and hips, with specific findings of severe arthritis in the right hip and bilateral nerve root impingement at L5-S1 disc space. Patient Instructions - increase atenolol 100 mg from 50 mg - Consider increasing fluoxetine upon symptom evaluation and guidance.. - possible use of a walker is recommended if needed. - Schedule follow-up appointment in 3 months - Maintain the current use of amitriptyline for nocturnal symptoms. Orders: Orders Complete Blood Count Auto Diff Today E55.9 - Vitamin D deficiency, unspecified, E66.09 - Other obesity due to excess calories, E78.9 - Disorder of lipoprotein metabolism, unspecified, F41.1 - Generalized anxiety disorder, I10 - Essential (primary) hypertension, R10.13 - Epigastric pain, Z68.34 - Body mass index [BMI] 34.0-34.9, adult LDL Cholesterol Direct Today E55.9 - Vitamin D deficiency, unspecified, E66.09 - Other obesity due to excess calories, E78.9 - Disorder of lipoprotein metabolism, unspecified, F41.1 - Generalized anxiety disorder, I10 - Essential (primary) hypertension, R10.13 - Epigastric pain, Z68.34 - Body mass index [BMI] 34.0-34.9, adult Complete Blood Count Auto Diff 3 Months E78.9 - Disorder of lipoprotein metabolism, unspecified, F41.1 - Generalized anxiety disorder, I10 - Essential (primary) hypertension Comprehensive [place]. Panel Fast 3 Months E78.9 - Disorder of lipoprotein metabolism, unspecified, F41.1 - Generalized anxiety disorder, I10 - Essential (primary) hypertension Hemoglobin A1c Today E55.9 - Vitamin D deficiency, unspecified, E66.09 - Other obesity due to excess calories, E78.9 - Disorder of lipoprotein metabolism, unspecified, F41.1 - Generalized anxiety disorder, I10 - Essential (primary) hypertension, R10.13 - Epigastric pain, Z68.34 - Body mass index [BMI] 34.0- 34.9, adult Comprehensive Met. Panel Today E55.9 - Vitamin D deficiency, unspecified, E66.09 - Other obesity due to excess calories, E78.9 - Disorder of lipoprotein metabolism, unspecified, F41.1 - Generalized anxiety disorder, I10 - Essential (primary) hypertension, R10.13 - Epigastric pain, Z68.34 - Body mass index [BMI] 34.0-34.9, adult Medications: Changed From atenolol 50 mg PO DAILY 90 days 90 tabs 0RF To atenolol 100 mg PO DAILY 90 days 90 tabs 0RF Discontinued lorazepam Discontinued Reason: Doctor's Order 0.5 mg PO DAILY PRN 30 tabs 0RF anxiety
[2024-06-06 15:00] VITALS: BP 172/90; PULSE 83; O2SAT 96; BMI 36.3
--- OUTSIDE RECORDS SUMMARY | 2024-06-06 17:41 | XMS_ITS | Patient Health Record ---
Author Organization [facility] Address [address] [place] [address] Care Team Providers Care Returned Case Inspector Name Role Phone Blue DOE, Asma Primary Care Provider Meena Salcido Unavailable [phone] Allergies Allergen (clinical drug ingredient) Drug/Non Drug [...] Allergy Active Motrin hives Drug Allergy Active benzalkonium Merthiolate Unknown Drug Allergy Ac tive Adhesive Tape slight rash Drug Allergy A ctive shrimp allergenic extract Shrimp (Diagnostic) hives Drug Allergy Active aspirin Aspirin hives Drug Allergy Active azithromycin Azithromycin stomach pains Drug Allergy Active codeine Codeine hallucinations Drug Allergy Ac tive Penicillin hives Drug Allergy Active Shellfish (FN) Shellfish-derived Products hives Drug Allergy Active Results Component Value Reference Range Notes HEMOGLOBIN A1C (GLYCOHEMOGLO BIN) Reviewed date:01/10/2024 01:51:45 PM Interpretation: Performing Lab: Notes/Report: TOTAL HEMOGLOBIN (HGBA1C) 6.2 HEMOGLOBIN A1C (GLYCOHEMOGLO BIN) Reviewed date:03/27/2024 11:44:52 AM Interpretation: Performing Lab: Notes/Report: HEMOGLOBIN A1C % (HH) 6.2 HEMOGLOBIN A1C (GLYCOHEMOGLO BIN) Reviewed date:05/29/2024 02:03:19 PM Interpretation: Performing Lab: Notes/Report: HEMOGLOBIN A1C % (HH) 6.2 Reason For Referral Diagnosis 1 Type 2 diabetes vera itus without complication, without long-term current use of insulin (E11.9) Diagnosis 2 Other nail disorders (L60.8) Diagnosis 3 Other eczema (L30.8) Diagnosis 4 Disorder of the skin and subcutaneous tissue, unspecified (L98.9) Diagnosis 5 Dystrophic nail (L60 .3) Referring Provider First Name Pablito Referring Provider Last Name Blue Referred [facility] [place] Referred Provider Meena Crespo Referred Address [address],[place], [place],[address],[place] Referred Provider Specialty Podiatry Referral Priority Routine Medications Medication SIG (Take, Route, Frequency, Duration) Notes Start Date End Date Status Clopidogrel Bisulfate 75 MG 1 tablet Orally Once a day for 30 day(s) Active Rosuvastatin Calcium 10 MG 1 tablet Oral ly Once a day for 30 day(s) Active Vitamin D3 1000 UNIT 1 capsule Orally On ce a day Active Atenolol 25 MG Oral for 90 Act gayla diazePAM 2 MG (Schedule IV Drug) Oral for 30 Not-Taking FLUoxetine HCl 10 MG Oral for 90 Not-Taking Amitriptyline HCl 10 MG 1 tablet at bedt corrine Orally Once a day Active Social History Tobacco Use: Social History Observation Description Date Details (start date - stop date) Never Smoker NA - NA Tobacco use other than smoking: Question Answer Notes Are you an other tobacco user? No Tobacco Control (Standard) Question Answer Notes Tobacco use: Nonsmoker Additional Findings: Tobacco non-user Current no nsmoker AUDIT-C (Standard) Question Answer Notes Did you have a drink containing alcohol in the p ast year? No Points 0 Interpretation Negative Problems Problem Type SNOMED Code ICD Code Onset Dates Problem Status W/U Status Risk Notes Problem Type II diabetes mellitus without complication ([id number]) Type 2 diabetes mellitus without complication (E11.9) Active confirmed Problem [id number] Type 2 diabetes mellitus without complication, without long-term current use of insulin (E11.9) Active confirmed Vital Signs Blood pressure diastolic 72 mm Hg 05/29/2024 Height 5ft 4in in 05/29/2024 Blood pressure systolic 137 mm Hg 05/29/2024 Weight 210 lbs 05/29/2024 BMI 36.04 kg/m2 05/29/2024 Encounters Encounter Location Date Provider Diagnosis [address] [address] 01/10/2024 Meena [place] Pain in right toe(s) M79.674 ; Type 2 diabetes mellitus without complication E11.9 ; Tinea unguium B35.1 and Pain in left toe(s) M79.[address] [address] 03/27/2024 Meena Perica Pain in right toe(s) M79.674 ; Type 2 diabetes mellitus without complication E11.9 ; Tinea unguium B35.1 and Pain in left toe(s) M79.[address] [address] 05/29/2024 Meena Perica Pain in right toe(s) M79.674 ; Type 2 diabetes mellitus without complication E11.9 ; Tinea unguium B35.1 and Pain in left toe(s) M79.[address] [address] 11/11/2023 Meena Perica [address] [address] 03/22/2024 Meena Perica Assessments Encounter Date Diagnosis (ICD Code) Assessment Notes Treatment Notes Treatment Clinical Notes Section Notes 01/10/2024 Pain in right toe(s) (ICD-10 - M79.674) 01/10/2024 Type 2 diabetes mellitus without complication (ICD-10 - E11.9) 03/27/2024 Pain in right toe(s) (ICD-10 - M79.674) 05/29/2024 Pain in right toe(s) (ICD-10 - M79.674) 05/29/2024 Type 2 diabetes mellitus without complication (ICD-10 - E11.9) 03/27/2024 Type 2 diabetes mellitus without complication (ICD-10 - E11.9) 01/10/2024 Tinea unguium (ICD-10 - B35.1) 01/10/2024 Pain in left toe(s) (ICD-10 - M79.675) 05/29/2024 Tinea unguium (ICD-10 - B35.1) 03/27/2024 Tinea unguium (ICD-10 - B35.1) 03/27/2024 Pain in left toe(s) (ICD-10 - M79.675) 05/29/2024 Pain in left toe(s) (ICD-10 - M79.675) Plan Of Treatment Next Appt Details Provider Name:Meena roberson, 08/21/2024 02:00:00 PM, [address] [place], [address], Insurance Providers Payer Name Payer Address Payer Phone Subscriber Number Group Number Insured Name Patient Relationship to Insured Coverage Start Date Coverage End Date [facility] 65 Medicare Preferred [address] [place] [address] [id number] Arin rodriguesEufemia Self - patient is the insured Medical (General) History Medical History History ICD Code Anxiety Back pain Gall bladder problems High blood pressure Eczema Sciatica Measles Mumps Chicken pox Arthritis Back,Hip,and Knee pain Cholesterol Cataracts Warts Diabetic Surgical History Surgery Date(Month/Year) gall bladder 1979 cataract surgery 2005 laminectomy - weakness, leg/back pain 20 05 kidney stones Searched for cancer throughout body 07/23 023 Hospitalization History Reason Date(Month/Year) EKG done due to low pottasium 11/10/2021
--- OUTSIDE RECORDS SUMMARY | 2024-06-06 17:41 | XMS_ITS ---
[facility] Organization [facility] Address [address] [facility] [place] [address] Care Team Providers Care Corporate Coordinator Name Role Phone Blue DOE, Asma Primary Care Provider Meena Salcido Unavailable [phone] Allergies Allergen (clinical drug ingredient) Drug/Non Drug [...] Status diazePAM 2 MG (Schedule IV Drug) Oral for 30 Not-Taking FLUoxetine HCl 10 MG Oral for 90 Not-Taking Vitamin D3 1000 UNIT 1 capsule Orally On ce a day Active Atenolol 25 MG Oral for 90 Act gayla Clopidogrel Bisulfate 75 MG 1 tablet Orally Once a day for 30 day(s) Active Rosuvastatin Calcium 10 MG 1 tablet Oral ly Once a day for 30 day(s) Active Amitriptyline HCl 10 MG 1 tablet at bedt corrine Orally Once a day Active Encounters Encounter Location Date Provider Diagnosis [facility] [place] [address] [place] [address] 03/23/2024 Meena Crespo Plan Of Treatment Next Appt Details Provider Name:Meena Roberson Ronaldo roberson, 08/21/2024 02:00:00 PM, [address] [place], [address], Progress Notes * Eufemia RUBY ADOB:1955 (69 yo F)Acc No.[id number]:03/23/2024 Progress Note Patient:?Eufemia RUBY Provider:?Meena Crespo DPM :1955???Age:68 Y???Sex:Female D ate:03/23/2024 Address:[address] [place] [address], [facility] Pcp:Pablito Mcarthur MD Subjective: * Chief Complaints: * ??? * Medical History:?Anxiety, Ba ck pain, Gall bladder problems, High blood pressure, Eczema, Sciatica, Measles, Mumps, Chicken pox, Arthritis, Back,Hip,and Knee pain, Cholesterol, Cataracts, Warts, Diabetic. * Medications:?Taking Amitript yline HCl 10 MG Tablet 1 tablet at [...] MG Tablet (Schedule IV Drug) Oral * Allergies:?Erythromycin, [place] armin, Keflex, Ceftin, Aspirin: hives, Advil: hives, Aleve: hives, Motrin: hives, Adhesive Tape: slight rash, Iodine: hives, Merthiolate, Penicillin: hives, Azithromycin: stomach pains, Aspirin: hives, Bactrim: hives, Codeine: hallucinations, Shrimp (Diagnostic): hives, Shellfish-derived Products: hives. Objective: * Vitals:? Assessment: Plan: * Treatment: * Images: * The named appointment provid er may or may not be the originator of this progress note, and it is not deemed complete until electronically signed by the appointment provider. Sign off status: Pending * Provider:?Meena Crsepo DPM Date:? Generated for Moriah kendall/Barney/Alena on:?06/06/2024 05:41 PM EDT
--- OUTSIDE RECORDS SUMMARY | 2024-06-06 17:41 | XMS_ITS | Encounter Summary ---
Author Organization [employer] Address [address] [facility] [address] [place] [address] Care Team Providers Care It Disaster Recovery Manager Name Role Phone Lolita Kim MD Primary Care Provider [phone] Encounter Details Date Type Department Care Team (Late st Contact Info) Description 11/22/2022 Abstract [facility] [address] [place], [place] [phone] Lolita Kim MD [address] [place], [place] [phone] Social History Tobacco Use Types Packs/Day Years Used Date Smoking Tobacco: Never Assessed Comments Unknown Sex and Gender Information Value Date Recorded Sex Assigned at Female 12/21/2021 10:38 AM EDT Legal Sex Female 10:38 AM EDT Gender Identity Choose not to disclose 10:38 AM EDT Sexual Orientation Choose not to disclose 2021 10:38 AM EDT documented as of this encounter Plan of Treatment Not on file documented as of this encounter Visit Diagnoses Not on filedocumented in this encounter Care Teams It Disaster Recovery Manager Relationship Specialty Start Date End Date Lolita Kim MD [address] [place], [place] [phone] PCP - General Family Medicine 04/16/21 02/22/23 documented as of this encounter
--- OUTSIDE RECORDS SUMMARY | 2024-06-06 17:41 | XMS_ITS | Clinical Summary ---
Author Organization [employer] Address [address] [facility] [address] [place] [address] Care Team Providers Care Tree Inspector Name Role Phone Unavailable Primary Care Provider Unavailabl e Social History Tobacco Use Types Packs/Day Years Used Date Smoking Tobacco: Never Assessed Comments Unknown Sex and Gender Information Value Date Recorded Sex Assigned at Female 12/21/2021 10:38 AM EDT Legal Sex Female 10:38 AM EDT Gender Identity Choose not to disclose 10:38 AM EDT Sexual Orientation Choose not to disclose 2021 10:38 AM EDT Plan of Treatment Health Maintenance Due Date Last Done Comments CT Colonography 1955 Colonoscopy 1955 Colorectal Cancer Screening 1955 Depression Screening 1955 FIT DNA/Cologuard 1955 FIT 1955 FOBT 1955 Sigmoidoscopy 1955 Alcohol/Substance Use Screening 1968 Tobacco Screening 1968 DTaP/Tdap/Td Vaccines (1 - Tdap) 05/21/1975 Mammogram 1996 Pneumococcal Vaccine: 50+ Years (1 of 1 - PCV) 2006 Zoster Vaccines (1 of 2) 2006 COVID-19 Vaccine (4 - 2023-2 5 season) 2023 01/22/2021, 07/16/2020, 06/18/2020 Influenza Vaccine (#1) 2023 RSV Patients and Patients Aged 60 years or older (1 - 1-dose 75+ series) 05/21/2031 HIB Vaccines Aged Out No longer eligi ble based on patient's age to complete this topic HPV Vaccines Aged Out No longer eligi ble based on patient's age to complete this topic Hepatitis A Vaccines Aged Out No long er eligible based on patient's age to complete this topic Hepatitis B Vaccines Aged Out No long er eligible based on patient's age to complete this topic IPV Vaccines Aged Out No longer eligi ble based on patient's age to complete this topic Meningococcal Vaccine Aged Out No deon brooke eligible based on patient's age to complete this topic RSV under 20 months Aged Out No longe r eligible based on patient's age to complete this topic Rotavirus Vaccines Aged Out No longer eligible based on patient's age to complete this topic
--- OUTSIDE RECORDS SUMMARY | 2024-06-06 17:42 | XMS_ITS ---
[facility] Address [address] [facility] [place] [address] Care Team Providers Care Cotton Gin Yard Supervisor Name Role Phone Blue DOE, Asma Primary Care Provider Meena Salcido Unavailable [phone] Allergies Allergen (clinical drug ingredient) Drug/Non Drug [...] (FN) Shellfish-derived Products hives Drug Allergy Active REASON FOR VISIT At Risk Footcare, Painful Nail(s) aggravated by shoes and causing difficulty standing/walking. Medications Medication SIG (Take, Route, Frequency, Duration) Notes Start Date End Date Status diazePAM 2 MG (Schedule IV Drug) Oral for 30 Not-Taking Atenolol 25 MG Oral for 90 Act gayla Vitamin D3 1000 UNIT 1 capsule Orally On ce a day Active FLUoxetine HCl 10 MG Oral for 90 Not-Taking Amitriptyline HCl 10 MG 1 tablet at bedt corrine Orally Once a day Active Clopidogrel Bisulfate 75 MG 1 tablet Orally Once a day for 30 day(s) Active Rosuvastatin Calcium 10 MG 1 tablet Oral ly Once a day for 30 day(s) Active Social History Tobacco Use: Social History Observation Description Date Details (start date - stop date) Never Smoker NA - NA Tobacco use other than smoking: Question Answer Notes Are you an other tobacco user? No Tobacco Control (Standard) Question Answer Notes Tobacco use: Nonsmoker Vital Signs Blood pressure systolic 136 mm Hg 03/27/19 25 Blood pressure diastolic 75 mm Hg 025 Height 5ft4in in 03/27/2024 Weight 210 lbs 03/27/2024 BMI 36.04 kg/m2 03/27/2024 Encounters Encounter Location Date Provider Diagnosis [facility] [address] [address] 03/27/2024 Meena Crespo Pain in right toe(s) M79.674 ; Type 2 diabetes mellitus without complication E11.9 ; Tinea unguium B35.1 and Pain in left toe(s) M79.675 Assessments Encounter Date Diagnosis (ICD Code) Assessment Notes Treatment Notes Treatment Clinical Notes Section Notes 03/27/2024 Pain in right toe(s) (ICD-10 - M79.674) 03/27/2024 Type 2 diabetes mellitus without complication (ICD-10 - E11.9) 03/27/2024 Tinea unguium (ICD-10 - B35.1) 03/27/2024 Pain in left toe(s) (ICD-10 - M79.675) Plan Of Treatment Next Appt Details Follow Up: 2 Months, Reason: Provider Name:Meena roberson, 08/21/2024 02:00:00 PM, [address] [place] [address], [phone], Procedure Notes * Category Sub-Category Detail Notes Debride Nail 6-10 Nail debridement Due to the cl inical pathology outlined in the exam findings, performance of this nail treatment is medically necessary as its management by an unskilled/untrained nonprofessional would put this patients foot and overall health at risk. Therefore, debridement to affected nail(s), as described in exam ( TA, T1, T2, T3, T4, T5, T6, T7, T8, T9, ), was performed exclusively by the physician of record to reduce/remove overall nail length, girth, thickness, subungual debris, and necrotic tissue, by manual and/or electrical means through the use of a nail nipper and/or dremel-type multifocal button grinder, to a more viable healthy nail plate or bed tissue 6-10 nails in total. Silver nitrate was used for any petechial bleeding as necessary. Definitive antifungal treatment options, both pharmaceutical and surgical, have been reviewed and discussed with the patient. The patient solely prefers the use of intermittent/as needed professional debridement services for their nail condition and understands the need for additional periodic treatments to maintain effectiveness in symptomatic relief - [id number] Progress Notes * Eufemia RUBY ADOB:1955 (68 yo F)Acc No.[id number]:03/27/2024 Progress Note Patient:?Eufemia RUBY Provider:?Meena Crespo DPM :1955???Age:68 Y???Sex:Female D ate:03/27/2024 Address:[address] [place] [address], [facility] Pcp:Pablito Mcarthur MD Subjective: * Chief Complaints: * ???At Risk FootcarePainful N ail(s) aggravated by shoes and causing difficulty standing/walking. * HPI: ???At Risk footcare:?Pt States Last PCP Visit:?Date?07/23/2023 * ROS:?General/Constitutional:?Nausea?denies.?Vomiting?denies.?Hunger Thirst?denies.?Loss appetite?denies.?Chills?denies.?Fatigue?denies.?Fever?denies.?Night Sweats?denies.?Unexplained weight loss?denies.?Unexplained weight gain?denies.?HEENTM:?Dentures?admits.?Dizziness?denies.?Glasses/contacts?admits.?Retinopathy?den ies.?Blurred/double vision?denies.?TMJ?denies.?Discharge/drainage?denies.?Implants?denies.?Sore throat?denies.?Dental implants?denies.?Hard of hearing ?denies.?Difficulty chewing/swallowing/speaking?denies.?Nose bleeds?denies.?Sore mouth?denies.?Respiratory:?On O xygen?denies.?Pneumonia/pleurisy?denies.?Bronchitis?denies.?Emphysema?denies.?Co ughing?denies.?Cough blood?denies.?Shortness of breath?denies.?Wheezing?denies.?Cardiovascular:?Pacemaker?denies.?MVP?denies.?WPW?denies.?CHF?denies.?Heart attack?denies.?Septal defect?denies.?Rapid beat?denies.?Chest pain ?denies.?Atrial Fib.?denies.?Murmur/Palpitations?denies.?Gastrointestinal:?Hemorrhoids?denies.?Stomach/Abdominal pain?admits.?Dark blood stool?denies.?Irritable bowel ?denies.?Constipation?denies.?Diarrhea?admits.?Hematology:?Swelling?denies.?Clots?denies.?Varicose Veins?denies.?Bruising?denies.?Bleeding problem?denies.?Genitourinary:?Blood urine?admits.?Frequent/Painfu/urination/bladder control?denies.?Kidney stones?admits.?Infection (UTI)?admits.?Nephropathy?denies.?sex trans dis (STD)?denies.?Prostate?denies.?Musculoskeletal:?Hammertoes?denies.?Bunions?denies.?Back Pain?admits.?Muscle Cramps/ Resting?denies.?Muscle cramps / walking?denies.?Generalized aches and pains?denies.?Weakness?denies.?Integ.:?Richardson?denies.?Scars?denies.?Corns/calluses?denies.?Ingrown nails?denies.?Painful nails?denies.?Open Sores?denies.?Rashes?denies.?Neurologic:?Difficulty sleeping?denies.?Brain disorder?denies.?Numbness?denies.?Balance t rouble?denies.?Confusion?denies.?Fainting/blackouts?denies.?Tingling?denies.?Don mors?denies.? * Medical History:? * Surgical History:?gall bladd er 1980cataract surgery 2005laminectomy - weakness, leg/back pain 2005kidney stones Searched for cancer throughout body 07/2022 * Hospitalization/Major Diagno stic Procedure:?EKG done due to low pottasium 11/10/2021 * Family History:?Mother: dece ased, diagnosed with Family history of arthritis.?Father: , heart attack, diagnosed with Diabetic - NIDDM, Unspecified essential hypertension, Unspecified heart disease, Family history of arthritis.? * Social History:?Tobacco Use:?Tobacco use other than smoking?Are you an other tobacco user??No ?Tobacco Control (Standard)?Tobacco use:?Nonsmoker ???Miscellaneous:?Caffeine: no. ?Children: yes, 2. ?Exercise: yes, walking at home- needs flat surface due to back issuestai chi- occasionally. ?Marital status: . 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 * Medications:?TakingAmitripty line HCl 10 MG Tablet 1 tablet at bedtime Orally Once a day Rosuvastatin Calcium 10 MG Tablet 1 tablet Orally Once a day Clopidogrel Bisulfate 75 MG Tablet 1 tablet Orally Once a day Atenolol 25 MG Tablet Oral Vitamin D3 1000 UNIT Capsule 1 capsule Orally Once a day Taking Amitriptyline HCl 10 MG Tablet 1 tablet at bedtime Orally Once a day Taking Rosuvastatin Calcium 10 MG Tablet 1 tablet Orally Once a day Taking Clopidogrel Bisulfate 75 MG Tablet 1 tablet Orally Once a day Taking Atenolol 25 MG Tablet Oral Taking Vitamin D3 1000 UNIT Capsule 1 capsule Orally Once a day Not-Taking/PRNFLUoxetine HCl 10 MG Capsule Oral diazePAM 2 MG Tablet (Schedule IV Drug) Oral Medication List reviewed and reconciled with the patientNot-Taking/PRN FLUoxetine HCl 10 MG Capsule Oral Not-Taking/PRN diazePAM 2 MG Tablet (Schedule IV Drug) Oral Medication List reviewed and reconciled with the patient * Allergies:?ErythromycinBiaxi nKeflexCeftinAspirin: hivesAdvil: hivesAleve: hivesMotrin: hivesAdhesive Tape: slight rashIodine: hivesMerthiolatePenicillin: hivesAzithromycin: stomach painsAspirin: hivesBactrim: hivesCodeine: hallucinationsShrimp (Diagnostic): hivesShellfish-derived Products: hivesyes[Allergies Verified] Objective: * Vitals:?Ht: 5ft4in, Wt:210, BMI:36.04, Shoe size: 7-7.5, BP:136/75mm Hg, BS: not taken, Ht-cm: 162.56 cm, Wt-k.26 kg. * ???Past Orders: ???Lab:HEMOGLOBIN A1C (GLYCO HEMOGLOBIN) (Order Date - 12/23/2023) (Collection Date & Time - 12/23/2023 11:44 AM) ? Value Reference Range ?HEMOGLOBIN A1C % (HH) 6.2 * Examination: ???Ophthalmology Referral: ?DIABETES EYE EXAM?Procedure Performed:?Yes ?Date of Exam Performed?03/08/2023 ?Findings of Diabetic Eye Exam:?no retinopathy?Nails: ?NAILS are:?Elongated, overgrown, dystrophic, lytic, greater than 3mm thick, discolored and friable with crumbly malodorous subungual debris, with pain on palpation , TA, T1, T2, T3, T4, T5, T6, T7, T8, T9.?Dermatologic: ?SKIN FINDINGS:?Skin exam reveals normal texture, elasticity, and turgor. There are no masses. The interspaces are clear, B/L, Skin exam reveals Keratotic lesion(s) located at.?Neurological: ?SENSORY:?Neurological exam reveals intact sensorium, pain sensation normal, vibration sensation intact, pinprick sensation is normal in the lower extremities, 5.07 monofilament test performed at plantar aspects of 5 varied sites per foot shows sensation, normal, B/L, Pt denies, anesthesia, burning, paresthesia, tingling, B/L.?Vascular: ?DP PULSES (B):?3/4, B/L.?PT PULSES (B):?3/4, B/L.?CAPILLARY FILL TIME:?immediate, all digits, B/L.?TROPHIC CONDITION-TEXTURE/ELASTICITY/TURGOR/HAIR GROWTH (B):?normal, B/L.?TEMPERTURE GRADIENT (C):?normal, warm to cool, proximal to distal, B/L, B/L.?EDEMA (C):?1/4, B/L.?General Examination: ?GENERAL APPEARANCE:?Reveals a pleasant, alert, well nourished, well- developed, well hydrated individual, who demonstrates proper attention to hygiene/body habitus, and is in no acute distress, Pt serves as own historian for office visit today.?ORIENTED:?person, place, and time.?FOOT EXAM:?Lower Extremity Neurological Exam performed:?Yes ?Visual exam of foot performed:?Yes ?Date?03/27/2024 ?Footwear Evaluation?Footwear Evaluation performed:?Yes??? Assessment: * Assessment: 1.?Pain in right toe(s) - M7 9.674???2.?Type 2 diabetes mellitus without complication - E11.9 (Primary)???3.?Tinea unguium - B35.1???4.?Pain in left toe(s) - M79.675??? Plan: * Treatment: * Procedures:?Debride Nail 6-10:?Nail debridement?Due to the clinical pathology outlined in the exam findings, performance of this nail treatment is medically necessary as its management by an unskilled/untrained nonprofessional would put this patients foot and overall health at risk. Therefore, debridement to affected nail(s), as described in exam ( TA, T1, T2, T3, T4, T5, T6, T7, T8, T9, ), was performed exclusively by the physician of record to reduce/remove overall nail length, girth, thickness, subungual debris, and necrotic tissue, by manual and/or electrical means through the use of a nail nipper and/or dremel-type multifocal button grinder, to a more viable healthy nail plate or bed tissue 6- 10 nails in total. Silver nitrate was used for any petechial bleeding as necessary. Definitive antifungal treatment options, both pharmaceutical and surgical, have been reviewed and discussed with the patient. The patient solely prefers the use of intermittent/as needed professional debridement services for their nail condition and understands the need for additional periodic treatments to maintain effectiveness in symptomatic relief - 620[address].? * Procedure Codes:?00268 DEBRI DE NAIL, 6 OR MORE, Modifiers: XS * Preventive Medicine:? ??Screening/Special Tests:?Fall Risk?Assessment:?Performed ?Screening:?No falls in the past year ?FALLS: Screening for Future Fall Risk?Have you had two or more falls in the past year??No ?Have you had any falls with injury in the past year??No * Follow Up:?2 Months * Images: * Sign off status: Completed true * Provider:?Meena Crespo DPM Date:?05/2024 Generated for Moriah kendall/Barney/Alena on:?06/06/2024 05:41 PM EDT History and Physical Notes * HPI (History of Present Illness) Category Sub-Category Detail Notes Category Not es At Risk footcare Pt States Last PCP Visit: Date: Examination Category Sub-Category Detail Notes Category Not es Neurological SENSORY: Neurological exa m reveals intact sensorium, pain sensation normal, vibration sensation intact, pinprick sensation is normal in the lower extremities, 5.07 monofilament test performed at plantar aspects of 5 varied sites per foot shows sensation, normal, B/L, Pt denies, anesthesia, burning, paresthesia, tingling, B/L Dermatologic SKIN FINDINGS: Skin exam reveal s normal texture, elasticity, and turgor. There are no masses. The interspaces are clear, B/L, Skin exam reveals Keratotic lesion(s) located at General Examination GENERAL APPEARANCE: Reveals a pleasant, alert, well nourished, well-developed, well hydrated individual, who demonstrates proper attention to hygiene/body habitus, and is in no acute distress, Pt serves as own historian for office visit today FOOT EXAM: Lower Extremity Neurological Exa m performed:: Yes Visual exam of foot performed:: Yes Date: 03/27/2024 ORIENTED: person, place, and t corrine Footwear Evaluation Footwear Evaluation performe d:: Yes Ophthalmology Referral DIABETES EYE EXAM Procedure Perform ed:: Yes ?Date of Exam Performed: 03/08/2023 Findings of Diabetic Eye Exam:: no retin opathy Vascular DP PULSES (B): 3/4, B/L PT PULSES (B): 3/4, B/L CAPILLARY FILL TIME: immediate, all digi ts, B/L TEMPERTURE GRADIENT (C): normal, warm to cool, proximal to distal, B/L, B/L TROPHIC CONDITION-TEXTURE/ELASTICITY/TURGOR/HAIR GROWTH (B): normal, B/L EDEMA (C): 1/4, B/L Nails NAILS are: Elongated, overg rown, dystrophic, lytic, greater than 3mm thick, discolored and friable with crumbly malodorous subungual debris, with pain on palpation , TA, T1, T2, T3, T4, T5, T6, T7, T8, T9
--- OUTSIDE RECORDS SUMMARY | 2024-06-06 17:42 | XMS_ITS ---
Author Organization [facility] Address [address] [facility] [place] [address] Care Team Providers Care County Treasurer Name Role Phone Blue DOE, Asma Primary Care Provider Meena Salcido Unavailable [phone] Allergies Allergen (clinical drug ingredient) Drug/Non Drug [...] Duration) Notes Start Date End Date Status Vitamin D3 1000 UNIT 1 capsule Orally [...] ast year? No Points 0 Interpretation Negative Vital Signs Blood pressure systolic 137 mm Hg 05/30/19 25 Blood pressure diastolic 72 mm Hg 025 Height 5ft 4in in 05/29/2024 Weight 210 lbs 05/29/2024 BMI 36.04 kg/m2 05/29/2024 Encounters Encounter Location Date Provider Diagnosis [facility] [place] [address] [place] [address] 05/29/2024 Meena Crespo Pain in right toe(s) M79.674 ; Type 2 diabetes mellitus without complication E11.9 ; Tinea unguium B35.1 and Pain in left toe(s) M79.675 Assessments Encounter Date Diagnosis (ICD Code) Assessment Notes Treatment Notes Treatment Clinical Notes Section Notes 05/29/2024 Pain in right toe(s) (ICD-10 - M79.674) 05/29/2024 Type 2 diabetes mellitus without complication (ICD-10 - E11.9) 05/29/2024 Tinea unguium (ICD-10 - B35.1) 05/29/2024 Pain in left toe(s) (ICD-10 - M79.675) Plan Of Treatment Next Appt Details Follow Up: 2.5 Months, Reaso n: Provider Name:Meena roberson, 08/21/2024 02:00:00 PM, [address] [place], [address], Procedure Notes * Category Sub-Category Detail Notes [...] use of a nail nipper and/or dremel-type thread grinder tool, to a more viable healthy nail plate [...] to maintain effectiveness in symptomatic relief - 39694 Progress Notes * Eufemia RUBY ADOB:1955 (69 yo F)Acc No.[id number]:05/29/2024 Progress Note Patient:?Eufemia RUBY Provider:?Meena Crespo DPM :1955???Age:69 Y???Sex:Female D ate:05/29/2024 Address:[address] [place] [address], [id number] Pcp:Pablito Mcarthur MD Subjective: * Chief Complaints: * ???At Risk FootcarePainful N ail(s) aggravated by shoes and causing difficulty standing/walking. * HPI: ???At Risk footcare:?Pt States Last PCP Visit:?Date?12/09/2023 * ROS:?General/Constitutional:?Nausea?denies.?Vomiting?denies.?Hunger Thirst?denies.?Loss appetite?denies.?Chills?denies.?Fatigue?denies.?Fever?denies.?Night Sweats?denies.?Unexplained weight loss?denies.?Unexplained weight gain?denies.?HEENTM:?Dentures?admits.?Dizziness?denies.?Glasses/contacts?admits.?Retinopathy?den ies.?Blurred/double vision?denies.?TMJ?denies.?Discharge/drainage?denies.?Implants?denies.?Sore throat?denies.?Dental implants?denies.?Hard of hearing ?denies.?Difficulty chewing/swallowing/speaking?denies.?Nose bleeds?denies.?Sore mouth?denies.?Respiratory:?On O xygen?denies.?Pneumonia/pleurisy?denies.?Bronchitis?denies.?Emphysema?denies.?Co ughing?denies.?Cough blood?denies.?Shortness of breath?denies.?Wheezing?denies.?Cardiovascular:?Pacemaker?denies.?MVP?denies.?WPW?denies.?CHF?denies.?Heart attack?denies.?Septal defect?denies.?Rapid beat?denies.?Chest pain ?denies.?Atrial Fib.?denies.?Murmur/Palpitations?denies.?Gastrointestinal:?Hemorrhoids?denies.?Stomach/Abdominal pain?admits.?Dark blood stool?denies.?Irritable bowel ?denies.?Constipation?denies.?Diarrhea?admits.?Hematology:?Swelling?denies.?Clots?denies.?Varicose Veins?denies.?Bruising?denies.?Bleeding problem?denies.?Genitourinary:?Blood urine?admits.?Frequent/Painfu/urination/bladder control?denies.?Kidney stones?admits.?Infection (UTI)?admits.?Nephropathy?denies.?sex trans dis (STD)?denies.?Prostate?denies.?Musculoskeletal:?Hammertoes?denies.?Bunions?denies.?Back Pain?admits.?Muscle Cramps/ Resting?denies.?Muscle cramps / walking?denies.?Generalized aches and pains?admits.?Weakness?denies.?Integ.:?Richardson?denies.?Scars?denies.?Corns/calluses?denies.?Ingrown nails?denies.?Painful nails?denies.?Open Sores?denies.?Rashes?denies.?Neurologic:?Difficulty sleeping?denies.?Brain disorder?denies.?Numbness?denies.?Balance t rouble?denies.?Confusion?denies.?Fainting/blackouts?denies.?Tingling?denies.?Don mors?denies.? * Medical History:? * Surgical History:?gall bladd er 1980cataract surgery 2006laminectomy - weakness, leg/back pain 2005kidney stones Searched [...] other tobacco user??No ?Tobacco Control (Standard)?Tobacco use:?Nonsmoker ?Additional Findings: Tobacco non-user?Current nonsmoker ???Drugs/Alcohol:?Drugs?Have you used drugs other than those for medical reasons in the past 12 months??No ???Miscellaneous:?Caffeine: no. ?Children: yes, 2. ?Exercise: yes, walking at home- needs flat surface due to back issues,rosita chi- occasionally. ?Marital status: . 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 ???Drug/Alcohol:?AUDIT-C (Standard)?Did you have a drink containing alcohol in the past year??No ?Points?0 ?Interpretation?Negative * Medications:?TakingAmitripty line HCl 10 MG Tablet [...] hivesShellfish-derived Products: hivesyes[Allergies Verified] Objective: * Vitals:?Ht: 5ft 4in, Wt:210, BMI:36.04, Shoe size: 7-7.5, BP:137/72mm Hg, BS: not taken, Ht-cm: 162.56 cm, Wt-k.26 kg. * ???Past Orders: ???Lab:HEMOGLOBIN A1C (GLYCO HEMOGLOBIN) (Order Date - 07/25/2023) (Collection Date & Time - 05/29/2024 02:02 PM) ? Value Reference Range ?HEMOGLOBIN A1C % (HH) 6.2 * Examination: ???Ophthalmology Referral: ?DIABETES EYE EXAM?Procedure Performed:?Yes ?Date of Exam Performed?01/11/2024 ?Findings of Diabetic Eye Exam:?no retinopathy?Nails: ?NAILS are:?Elongated, overgrown, dystrophic, lytic, greater than 3mm thick, discolored and friable with crumbly malodorous subungual debris, with pain on palpation , TA, T1, T2, T3, T4, T5, T6, T7, T8, T9.?Dermatologic: ?SKIN FINDINGS:?Skin exam reveals normal texture, elasticity, and turgor. There are no masses. The interspaces are clear, B/L.?Neurological: ?SENSORY:?Neurological exam reveals intact sensorium, pain sensation [...] Exam performed:?Yes ?Visual exam of foot performed:?Yes ?Date?05/29/2024 ?Footwear Evaluation?Footwear Evaluation performed:?Yes?Orthopedic: ?FOOTWEAR EVALUATION:?good condition.? Assessment: * Assessment: 1.?Pain in right toe(s) [...] use of a nail nipper and/or dremel-type thread grinder tool, to a more viable healthy nail plate [...] to maintain effectiveness in symptomatic relief - 60923.? * Procedure Codes:?04336 DEBRI DE NAIL, 6 OR MORE * Preventive Medicine:? ??Screening/Special Tests:?Fall Risk?Assessment:?Performed ?Screening:?No falls in the past year ?FALLS: Screening for Future Fall Risk?Have you had two or more falls in the past year??No ?Have you had any falls with injury in the past year??No * Follow Up:?2.5 Months * Images: * Sign off status: Completed true * Provider:?Meena Crespo, JOSE Date:?09/2024 Generated for Moriah kendall/Barney/Freddyitting on:?06/06/2024 05:41 PM EDT History and Physical [...] are no masses. The interspaces are clear, B/L Orthopedic FOOTWEAR EVALUATION: good condition General Examination GENERAL APPEARANCE: Reveals a pleasant, alert, well nourished, well-developed, well hydrated individual, who demonstrates proper attention to hygiene/body habitus, and is in no acute distress, Pt serves as own historian for office visit today FOOT EXAM: Lower Extremity Neurological Exa m performed:: Yes Visual exam of foot performed:: Yes Date: 05/29/2024 ORIENTED: person, place, and t corrine Footwear Evaluation Footwear Evaluation performe d:: Yes Ophthalmology Referral DIABETES EYE EXAM Procedure Perform ed:: Yes ?Date of Exam Performed: 01/11/2024 Findings of Diabetic Eye Exam:: no retin [...]
== END 2024-06-06 15:23 | disposition home or self-care (01) ==
LOC: HO.HMCC 14:58
PROVIDERS: PCP Internal Medicine; Visit Provider Internal Medicine
DX: I10 Essential (primary) hypertension (principal); F41.1 Generalized anxiety disorder; E55.9 Vitamin D deficiency, unspecified; R10.13 Epigastric pain; E78.9 Disorder of lipoprotein metabolism, unspecified; E66.09 Other obesity due to excess calories; Z68.34 Body mass index [BMI] 34.0-34.9, adult

== ENCOUNTER 2025-02-05 13:42 | Outpatient (REF) | payer MEDICARE, SELFPAY ==
[2025-02-05 16:15] LABS: MANUAL DIFF FLAG NO
[2025-02-05 16:20] LABS: Hematocrit 49.3 % (37.0-47.0); Hemoglobin 15.9 g/dl (12.0-16.0); Imm Gran Abs Auto 0.04 X10*3/uL (0.00-0.03); Imm Gran Pct Auto 0.4 % (0.0-0.4); Lymphocytes Absolute Auto 3.3 X10*3/uL (1.2-4.9); Mean Corpuscular HGB Conc 32.3 g/dl (31.0-35.0); Mean Corpuscular Hemoglobin 28.4 pg (27.0-33.0); Mean Corpuscular Volume 88.2 fL (80.0-98.0); NRBC Abs Auto 0.000 X10*3/uL (0.0-0.012); NRBC Pct Auto 0.0 /100WBC (0.0-0.2); Platelet Count 301 X10*3/uL (160-400); Red Blood Count 5.59 X10*6/uL (4.20-5.50); White Blood Count 9.7 X10*3/uL (4.8-10.8)
[2025-02-05 16:37] LABS: Alanine Aminotransferase 24 U/L (0-31); Albumin Level 4.6 g/dL (3.5-5.0); Alkaline Phosphatase 80 U/L (39-117); Anion Gap 11 (12-20); Aspartate Amino Transferase 26 U/L (5-31); Blood Urea Nitrogen 13 mg/dL (9-16); Calcium 10.0 mg/dL (8.4-10.2); Carbon Dioxide 29 mmol/L (22-29); Chloride 100 mmol/L (96-108); Estimated Glomerular Filt Rate 59; Potassium 5.1 mmol/L (3.3-5.1); Sodium 135 mmol/L (135-145); Total Protein 7.4 g/dL (6.5-8.0)
== END 2025-02-05 13:43 | disposition home or self-care (01) ==
LOC: HO.HMGCLDS 13:42
PROVIDERS: PCP Internal Medicine; Visit Provider Internal Medicine
DX: E11.9 Type 2 diabetes mellitus without complications (principal); I10 Essential (primary) hypertension; F41.1 Generalized anxiety disorder; E78.9 Disorder of lipoprotein metabolism, unspecified; E66.09 Other obesity due to excess calories; E55.9 Vitamin D deficiency, unspecified; G47.9 Sleep disorder, unspecified; I25.10 Atherosclerotic heart disease of native coronary artery without angina pectoris; Z79.01 Long term (current) use of anticoagulants; Z68.35 Body mass index [BMI] 35.0-35.9, adult
CPT/HCPCS: 36415; 80053; 83721; 85025; 99212

== ENCOUNTER 2025-02-05 13:42 | Outpatient (AMB) | payer MEDICARE, SELFPAY ==
--- OUTSIDE RECORDS SUMMARY | 2023-11-11 07:30 | XMS_ITS ---
Author Organization [facility] Address [address] [place] [address] Care Team Providers Care Road Inspector Name Role Phone Blue DOE, Asma Primary Care Provider Meena Salcido Unavailable [phone] Allergies Allergen (clinical drug ingredient) Drug/Non Drug Allergy documented on EMR Reaction Allergy Type Onset Date Status ibuprofen Advil hives Drug Allergy Active Aleve hives Drug Allergy Active aspirin Aspirin hives Drug Allergy Active sulfamethoxazole / trimethoprim Bactrim hives Drug Allergy Active Biaxin Unknown Drug Allergy Active Ceftin Unknown Drug Allergy Active erythromycin Erythromycin Unknown Drug Allergy A ctive Iodine hives Drug Allergy Active Keflex Unknown Drug Allergy Active Motrin hives Drug Allergy Active Merthiolate Unknown Drug Allergy Activ e Adhesive Tape slight rash Drug Allergy A ctive shrimp allergenic extract Shrimp (Diagnostic) hives Drug Allergy Active aspirin Aspirin hives Drug Allergy Active azithromycin Azithromycin stomach pains Drug Allergy Active codeine Codeine hallucinations Drug Allergy Ac tive Penicillin hives Drug Allergy Active Shellfish (FN) Shellfish-derived Products hives Drug Allergy Active Medications Medication SIG (Take, Route, Frequency, Duration) Notes Start Date End Date Status Clopidogrel Bisulfate 75 MG 1 tablet Orally Once a day; Duration: 30 day(s) Active Atenolol 25 MG Oral; Duration: 90 Active Rosuvastatin Calcium 10 MG 1 tablet Orally Once a day; Duration: 30 day(s) Active FLUoxetine HCl 10 MG Oral; Duration: 90 Not-Taking diazePAM 2 MG (Schedule IV Drug) Oral; Duration: 30 Not-Taking Vitamin D3 1000 UNIT 1 capsule Orally On ce a day Active Encounters Encounter Location Date Provider Diagnosis [facility] [address] [place] [address] 11/11/2023 Meena Crespo Plan Of Treatment Next Appt Details Provider Name:Meena roberson, 04/26/2025 12:30:00 PM, [address] [place], [address], Progress Notes * Eufemia RUBY ADOB:1955 (69 yo F)Acc No.[id number]:11/11/2023 Progress Note Patient: Eufemia KNOTT Provider: Geronimo Crespo DPM :1955 A ge:68 Y S ex:Female Date:11/11/2023 Address:[address] [place] [address], [facility] Pcp:Pablito Mcarthur MD Subjective: * Chief Complaints: * * HPI: A t Risk footcare: Pt States Last PCP Visit: D ate: 0 11/10/2021 * Medical History: A nxiety, Back pain, Gall bladder problems, High blood pressure, Eczema, Sciatica, Measles, Mumps, Chicken pox, Arthritis, Back,Hip,and Knee pain, Cholesterol, Cataracts, Warts, Diabetic. * Medications: T aking Rosuvastatin Calcium 10 MG Tablet 1 tablet Orally Once a day , Taking Clopidogrel Bisulfate 75 MG Tablet 1 tablet Orally Once a day , Taking Atenolol 25 MG Tablet Oral , Taking Vitamin D3 1000 UNIT Capsule 1 capsule Orally Once a day , Not-Taking/PRN FLUoxetine HCl 10 MG Capsule Oral , Not-Taking/PRN diazePAM 2 MG Tablet (Schedule IV Drug) Oral * Allergies: E rythromycin, Biaxin, Keflex, Ceftin, Aspirin: hives, Advil: hives, Aleve: hives, Motrin: hives, Adhesive Tape: slight rash, Iodine: hives, Merthiolate, Penicillin: hives, Azithromycin: stomach pains, Aspirin: hives, Bactrim: hives, Codeine: hallucinations, Shrimp (Diagnostic): hives, Shellfish-derived Products: hives. Objective: * Vitals: Assessment: Plan: * Treatment: * Images: * The named appointment provid er may or may not be the originator of this progress note, and it is not deemed complete until electronically signed by the appointment provider. Sign off status: Pending * Provider: Geronimo Crespo DPM Date: 0 11/11/2023 Generated for Moriah Brownlee on: 1 04/08/2024 05:50 PM EST History and Physical Notes * HPI (History of Present Illness) Category Sub-Category Detail Notes Category Not es At Risk footcare Pt States Last PCP Visit: Date:: 11/11/19 22
--- OUTSIDE RECORDS SUMMARY | 2024-03-23 07:15 | XMS_ITS ---
Author Organization [facility] Address [address] [place] [address] Care Team Providers Care Chairman & Ceo Name Role Phone Blue DOE, Asma Primary Care Provider Meena Salcido Unavailable [phone] Allergies Allergen (clinical drug ingredient) Drug/Non Drug [...] Duration) Notes Start Date End Date Status diazePAM 2 MG (Schedule IV Drug) Oral; Duration: 30 Not-Taking FLUoxetine HCl 10 MG Oral; Duration: 90 Not-Taking Vitamin D3 1000 UNIT 1 capsule Orally On ce a day Active Atenolol 25 MG Oral; Duration: 90 Active Clopidogrel Bisulfate 75 MG 1 tablet Orally Once a day; Duration: 30 day(s) Active Rosuvastatin Calcium 10 MG 1 tablet Oral ly Once a day; Duration: 30 day(s) Active Amitriptyline HCl 10 MG 1 tablet at bedt corrine Orally Once a day Active Encounters Encounter Location Date Provider Diagnosis [facility] [address] [place] [address] 03/23/2024 Meena Crespo Plan Of Treatment Next Appt Details Provider Name:Meena Roberson Ronaldo roberson, 04/26/2025 12:30:00 PM, [address] [place], [address], Progress Notes * Eufemia RUBY ADOB:1955 (69 yo F)Acc No.[id number]:03/23/2024 Progress Note Patient: Eufemia KNOTT Provider: Geronimo Crespo DPM :1955 A ge:68 Y S ex:Female Date:03/23/2024 Address:[address] [place] [address] Pcp:Pablito Mcarthur MD Subjective: * Chief Complaints: * * Medical History: A nxiety, Back pain, Gall bladder problems, High blood pressure, Eczema, Sciatica, Measles, Mumps, Chicken pox, Arthritis, Back,Hip,and Knee pain, Cholesterol, Cataracts, Warts, Diabetic. * Medications: T aking Amitriptyline HCl 10 MG Tablet 1 tablet at bedtime Orally Once a day , Taking Rosuvastatin Calcium 10 MG Tablet 1 tablet Orally Once a day , Taking Clopidogrel Bisulfate 75 MG Tablet 1 tablet Orally Once a day , Taking Atenolol 25 MG Tablet Oral , Taking Vitamin D3 1000 UNIT Capsule 1 capsule Orally Once a day , Not- Taking/PRN FLUoxetine HCl 10 MG Capsule Oral , [...] * Provider: Geronimo Crespo DPM Date: 0 03/23/2024 Generated for Moriah kendall/Barney/Alena on: 04/08/2024 05:51 PM EST
--- OUTSIDE RECORDS SUMMARY | 2024-11-09 07:15 | XMS_ITS ---
Author Organization [facility] Address [address] [facility] [place] [address] Care Team Providers Care Chicken Sexer Name Role Phone Blue DOE, Asma Primary Care Provider Meena Salcido Unavailable [phone] Allergies Allergen (clinical drug ingredient) Drug/Non Drug [...] Duration) Notes Start Date End Date Status Rosuvastatin Calcium 10 MG 1 tablet Oral ly Once a day; Duration: 30 day(s) Active Amitriptyline HCl 10 MG 1 tablet at bedt corrine Orally Once a day Active Vitamin D3 1000 UNIT 1 capsule Orally On ce a day Active Atenolol 25 MG Oral; Duration: 90 Active Clopidogrel Bisulfate 75 MG 1 tablet Orally Once a day; Duration: 30 day(s) Active diazePAM 2 MG (Schedule IV Drug) Oral; Duration: 30 Not-Taking FLUoxetine HCl 10 MG Oral; Duration: 90 Active Encounters Encounter Location Date Provider Diagnosis [facility] [place] [address] [place] [address] 11/09/2024 Meena Crespo Plan Of Treatment Next Appt Details Provider Name:Meena Stanislaw Ronaldo roberson, 04/26/2025 12:30:00 PM, [address] [place], [address], Progress Notes * Eufemia RUBY ADOB:1955 (69 yo F)Acc No.[id number]:11/09/2024 Progress Note Patient: Eufemia KNOTT Provider: Geronimo Crespo DPM :1955 A ge:69 Y S ex:Female Date:11/09/2024 Address:[address] [place] [address], [facility] Pcp:Pablito Mcarthur MD Subjective: * Chief Complaints: [...] 1 capsule Orally Once a day , Taking FLUoxetine HCl 10 MG Capsule Oral , [...] * Provider: Geronimo Crespo DPM Date: 0 11/09/2024 Generated for Moriah kendall/Barney/Alena on: 1 04/08/2024 05:50 PM EST
--- OUTSIDE RECORDS SUMMARY | 2025-02-01 07:30 | XMS_ITS ---
Author Organization [facility] Address [address] [facility] [place] [address] Care Team Providers Care Radiology Director Name Role Phone Blue DOE, Asma Primary Care Provider Meena Salcido Unavailable [phone] Allergies Allergen (clinical drug ingredient) Drug/Non Drug [...] HCl 10 MG Oral; Duration: 90 Active Vitamin D3 1000 UNIT 1 capsule [...] Problem Type II diabetes mellitus without complication ([id number]) Type 2 diabetes mellitus without complication (E11.9) Active confirmed Vital Signs Height 5ft4in in 02/01/2025 Weight 210 lbs 02/01/2025 BMI 36.04 kg/m2 02/01/2025 Blood pressure systolic 128 mm Hg 02/02/20 25 Blood pressure diastolic 65 mm Hg 025 Encounters Encounter Location Date Provider Diagnosis [facility] [place] [address] [place] [address] 02/01/2025 Meena Crespo Pain in right toe(s) M79.674 ; Type 2 diabetes mellitus without complication E11.9 ; Tinea unguium B35.1 and Pain in left toe(s) M79.675 Assessments Encounter Date Diagnosis (ICD Code) Assessment Notes Treatment Notes Treatment Clinical Notes Section Notes 02/01/2025 Pain in right toe(s) (ICD-10 - M79.674) 02/01/2025 Type 2 diabetes mellitus without complication (ICD-10 - E11.9) 02/01/2025 Tinea unguium (ICD-10 - B35.1) 02/01/2025 Pain in left toe(s) (ICD-10 - M79.675) Plan Of Treatment Next Appt Details Follow Up: 2 Months, Reason: Provider Name:Meena roberson, 04/26/2025 12:30:00 PM, [address] [place] [address], [address], Procedure Notes * Category Sub-Category Detail Notes [...] use of a nail nipper and/or dremel-type grinder operator surface tool, to a more viable healthy nail [...] to maintain effectiveness in symptomatic relief - 23580 Progress Notes * Eufemia RUBY ADOB:1955 (69 yo F)Acc No.[id number]:02/01/2025 Progress Note Patient: Eufemia KNOTT Provider: Geronimo Crespo DPM :1955 A ge:69 Y S ex:Female Date:02/01/2025 Address:[address] [place] [address], [facility], [facility] Pcp:Pablito Mcarthur MD Subjective: * Chief Complaints: * A t Risk FootcarePainful Nail(s) aggravated by shoes and causing difficulty standing/walking. * HPI: A t Risk footcare: Pt States Last PCP Visit: D ate: 0 11/08/2024 * ROS: G eneral/Constitutional: Nausea d enies, denies. V omiting d enies, denies.?Hunger Thirst d enies, denies. L oss appetite d enies, denies. C hills d enies, denies. F atigue d enies, denies. F ever d enies, denies. N ight Sweats denies, denies. U nexplained weight loss d enies, denies. U nexplained weight gain?denies, denies. H EENTM: Dentures a dmits, admits. D izziness d enies, denies. G lasses/contacts a dmits, admits. R etinopathy d enies, denies. B lurred/double vision d enies, denies. T MJ d enies, denies. D ischarge/drainage d enies, denies. I mplants d enies, denies. S ore throat d enies, denies. D ental implants?denies, denies. H willie of hearing d enies, denies. D ifficulty chewing/swallowing/speaking d enies, denies. N ose bleeds d enies, denies. S ore mouth d enies, denies. R espiratory: On Oxygen d enies, denies. P neumonia/pleurisy d enies, denies. B ronchitis d enies, denies. E mphysema d enies, denies. C oughing?denies, denies. C ough blood d enies, denies. S hortness of breath d enies, denies. W heezing d enies, denies. C ardiovascular: Pacemaker d enies, denies. M FURNACE AND WASH EQUIPMENT OPERATOR d enies, denies.?WPW d enies, denies. C HF d enies, denies. H eart attack d enies, denies.?Septal defect d enies, denies. R apid beat d enies, denies. C hest pain d enies, denies. A trial Fib. d enies, denies. M urmur/Palpitations d enies, denies. G astrointestinal: Hemorrhoids d enies, denies. S tomach/Abdominal pain?admits, admits. D ark blood stool d enies, denies. I rritable bowel d enies, denies. C onstipation d enies, denies. D iarrhea a dmits, admits. H ematology: Swelling d enies, denies. C lots d enies, denies.?Varicose Veins d enies, denies. B ruising d enies, denies. B leeding problem?denies, denies. G enitourinary: Blood urine a dmits, admits. F requent/Painfu/urination/bladder control d enies, denies. K idney stones a dmits, admits. I nfection (UTI)?admits, admits. N ephropathy d enies, denies. s ex trans dis (STD) d enies, denies. P rostate d enies, denies. M usculoskeletal: Hammertoes d enies, denies. B unions d enies, denies. B ack Pain a dmits, admits. M uscle Cramps/ Resting d enies, denies. M uscle cramps / walking d enies, denies. G eneralized aches and pains a dmits, admits. W eakness d enies, denies. I nteg.: Richardson d enies, denies. S cars d enies, denies. C orns/calluses d enies, denies. I ngrown nails d enies, denies. P ainful nails d enies, denies. O pen Sores d enies, denies. R ashes d enies, denies. ? N eurologic: Difficulty sleeping d enies, denies. B rain disorder?denies, denies. N umbness d enies, denies. B alance trouble d enies, denies. C onfusion d enies, denies. F ainting/blackouts d enies, denies. T ingling d enies, denies. T remors d enies, denies. 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 F ather: , heart attack, diagnosed with Family history of arthritis, Diabetic - NIDDM, Unspecified essential hypertension, Unspecified heart disease. * Social History: T obacco Use: T obacco use other than smoking A re you an other tobacco user? N o Tobacco Control (Standard) T obacco use: N onsmoker A dditional Findings: Tobacco non-user C urrent nonsmoker D rugs/Alcohol: D rugs H ave you used drugs other than those for medical reasons in the past 12 months? N o M iscellaneous: C affeine: no. Children: yes, 2. Exercise: yes, walking at home- needs flat surface due to back issues,rosita chi- occasionally. Marital status: . 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 D rug/Alcohol: A JO-C (Standard) D id you have a drink containing alcohol in the past year? N o P oints 0 I nterpretation N egative * Medications: T akingAmitriptyline HCl 10 MG Tablet 1 tablet at bedtime Orally Once a day Rosuvastatin Calcium 10 MG Tablet 1 tablet Orally Once a day Clopidogrel Bisulfate 75 MG Tablet 1 tablet Orally Once a day Atenolol 25 MG Tablet Oral Vitamin D3 1000 UNIT Capsule 1 capsule Orally Once a day FLUoxetine HCl 10 MG Capsule Oral Taking Amitriptyline HCl 10 MG Tablet 1 tablet at bedtime Orally Once a day Taking Rosuvastatin Calcium 10 MG Tablet 1 tablet Orally Once a day Taking Clopidogrel Bisulfate 75 MG Tablet 1 tablet Orally Once a day Taking Atenolol 25 MG Tablet Oral Taking Vitamin D3 1000 UNIT Capsule 1 capsule Orally Once a day Taking FLUoxetine HCl 10 MG Capsule Oral Not-Taking/PRNdiazePAM 2 MG Tablet (Schedule IV Drug) Oral Medication List reviewed and reconciled with the patientNot-Taking/PRN diazePAM 2 MG Tablet (Schedule IV Drug) Oral Medication List reviewed and reconciled with the patient * Allergies: E rythromycinBiaxinKeflexCeftinAspirin: hivesAdvil: hivesAleve: hivesMotrin: hivesAdhesive Tape: slight rashIodine: hivesMerthiolatePenicillin: hivesAzithromycin: stomach painsAspirin: hivesBactrim: hivesCodeine: hallucinationsShrimp (Diagnostic): hivesShellfish-derived Products: hivesyes[Allergies Verified] Objective: * Vitals: H t:5ft4in, Wt:210, BMI:36.04, Shoe size:7-7.5, BP:128/65mm Hg, BS:not taken, Ht- cm: 162.56 cm, Wt-k.26 kg. * P ast Orders: L ab:HEMOGLOBIN A1C (GLYCOHEMOGLOBIN) (Order Date - 05/22/2024) (Collection Date & Time - 05/22/2024 02:01 PM) Value Reference Range HEMOGLOBIN A1C % (HH) 8.0 * Examination: O phthalmology Referral: DIABETES EYE EXAM P rocedure Performed: Y es D ate of Exam Performed 1 03/12/2023 F indings of Diabetic Eye Exam: n o retinopathy N ails: NAILS are: E longated, overgrown, dystrophic, lytic, greater than 3mm thick, discolored and friable with crumbly malodorous subungual debris, with pain on palpation , TA, T1, T2, T3, T4, T5, T6, T7, T8, T9. D ermatologic: SKIN FINDINGS: S kin exam reveals normal texture, elasticity, and turgor. There are no masses. The interspaces are clear, B/L. N eurological: SENSORY: N eurological exam reveals intact sensorium, pain sensation normal, vibration sensation intact, pinprick sensation is normal in the lower extremities, 5.07 monofilament test performed at plantar aspects of 5 varied sites per foot shows sensation, normal, B/L, Pt denies, anesthesia, burning, paresthesia, tingling, B/L. V ascular: DP PULSES (B): 3 /4, B/L. PT PULSES (B): 3 /4, B/L. CAPILLARY FILL TIME: i mmediate, all digits, B/L. TROPHIC CONDITION-TEXTURE/ELASTICITY/TURGOR/HAIR GROWTH (B):?normal, B/L. TEMPERTURE GRADIENT (C): n ormal, warm to cool, proximal to distal, B/L, B/L. EDEMA (C): 1 /4, B/L. G eneral Examination: GENERAL APPEARANCE: R sujiteals a pleasant, alert, well nourished, well-developed, well hydrated individual, who demonstrates proper attention to hygiene/body habitus, and is in no acute distress, Pt serves as own historian for office visit today. ORIENTED: p erson, place, and time. FOOT EXAM: L ower Extremity Neurological Exam performed:?Yes V isual exam of foot performed: Y marlene D ate 1 04/04/2024 Footwear Evaluation F ootwear Evaluation performed: Y es O rthopedic: FOOTWEAR EVALUATION: g ood condition. ? Assessment: * Assessment: 1. P ain in right toe(s) - M79.674 2 . T ype 2 diabetes mellitus without complication - E11.9 (Primary) 3 . T inea unguium - B35.1 4 . P ain in left toe(s) - M79.675 Plan: * Treatment: * Procedures: D ebride Nail 6-10: Nail debridement D ue to the clinical pathology outlined in the [...] the use of a nail nipper and/or dremel- type grinder operator surface tool, to a more viable healthy nail [...] to maintain effectiveness in symptomatic relief - 26898. * Procedure Codes: 1 1721 DEBRIDE NAIL, 6 OR MORE * Preventive Medicine: Screening/Special Tests: F all Risk Screening: N o falls in the past year F ALLS: Screening for Future Fall Risk Have you had two or more falls in the past year? N o Have you had any falls with injury in the past year? N o * Follow Up: 2 Months * Images: * Sign off status: Completed true * Provider: Geronimo Crespo, DPM Date: 1 04/04/2024 Generated for Moriah kendall/Barney/eTkadysmitting on: 04/08/2024 05:51 PM EST History and Physical Notes * HPI (History of Present Illness) Category Sub-Category Detail Notes Category Not es At Risk footcare Pt States Last PCP Visit: Date:: 11/09/19 25 Examination Category Sub-Category Detail Notes Category Not [...] Visual exam of foot performed:: Yes Date: 02/01/2025 ORIENTED: person, place, and t corrine Footwear Evaluation Footwear Evaluation performe d:: Yes Ophthalmology Referral DIABETES EYE EXAM Procedure Perform ed:: Yes Date of Exam Performed: 01/11/2024 Findings of Diabetic [...]
--- NOTE | 2025-02-05 13:46 | MHC.PC.OV ---
Vital Signs 02/05/25 13:47 Height 5 ft 5 in Weight 212 lb BMI 35.3 BP 144/90 H Blood Pressure Location Lt brachial Position Sitting Pulse 78 Pulse Source Pulse Oximeter Pulse Oximetry (%) 97 Intake Visit Reasons: 3M F/U - see comments Allergies Iodinated Contrast Media (IV CONTRAST) Allergy (Severe, Verified 02/05/25 13:47) SEVERE HIVES aspirin (ASPIRIN) Allergy (Intermediate, Verified 02/05/25 13:47) LIPS SWELL Penicillins (PENICILLINS) Allergy (Intermediate, Verified 02/05/25 13:47) Facial Swelling Sulfa (Sulfonamide Antibiotics) (SULFA (SULFONAMIDE ANTIBIOTICS)) Allergy (Intermediate, Verified 02/05/25 13:47) HIVES cephalexin (From Keflex) Allergy (Unknown, Verified 02/05/25 13:47) hives clindamycin Allergy (Unknown, Verified 02/05/25 13:47) Diarrhea cyclobenzaprine (From Flexeril) Allergy (Unknown, Verified 02/05/25 13:47) loopy egg (EGG) Allergy (Unknown, Verified 02/05/25 13:47) GI UPSET penicillin V Allergy (Unknown, Verified 02/05/25 13:47) facial swelling oxycodone (From PERCOCET) Adverse Reaction (Severe, Verified 02/05/25 13:47) HALLUCINATIONS monosodium glutamate Adverse Reaction (Intermediate, Verified 02/05/25 13:47) HEADACHE nut - unspecified (nut) Adverse Reaction (Intermediate, Verified 02/05/25 13:47) GI UPSET nitrofurantoin (From Macrobid) Adverse Reaction (Verified 02/05/25 13:47) Vomiting iodine IVP Allergy (Unknown, Uncoded 06/06/24 15:00) hives shellfish Allergy (Unknown, Uncoded 06/06/24 15:00) swelling, hives Clindamycin Phosphate Adverse Reaction (Unknown, Uncoded 06/06/24 15:00) diarrhea eggs Adverse Reaction (Unknown, Uncoded 06/06/24 15:00) GI upset Flexeril Adverse Reaction (Unknown, Uncoded 06/06/24 15:00) loopy MSG Adverse Reaction (Unknown, Uncoded 06/06/24 15:00) headaches Medication List - Last Reconciled 02/05/25 by Pablito Mcarthur MD amitriptyline 10 mg PO BEDTIME PRN 90 days atenolol 100 mg PO DAILY 90 days blood sugar diagnostic (FreeStyle Lite Strips) tid prn cholecalciferol (vitamin D3) 50 mcg PO DAILY clopidogrel 75 mg PO DAILY fluoxetine 10 mg PO DAILY lancets (OneTouch Delica Lancets) test blood sugar daily rosuvastatin 20 mg PO DAILY [Walker with seat As directed] Tobacco use date assessed: 06/06/24 Fall risk assessment: No Falls in past year Last assessed Fall Risk: 02/05/25 Dental Screening Dental Screen Date: 06/06/24 HPI HPI Comments History of Present Illness Details History of Present Illness The patient is a 69 year old female presenting for follow-up for chronic conditions including hypertension, diabetes, and coronary artery disease. She has missed several appointments due to her 's cancer treatments. Hypertension: - The patient's blood pressure was 144/90 mmHg in the office, which is noted as an improvement from a previous reading of 172. - At home, her blood pressure readings are in the mid-130s systolic and sometimes over 72 diastolic. - She takes atenolol 100 mg for her blood pressure. Type 2 Diabetes Mellitus: - The patient's last Hemoglobin A1c in May was 8.0%. - An A1c was checked today and the result was 7.11%, showing an improvement. - The patient has been attempting to manage her condition with diet and is now starting to eat more protein. Coronary Artery Disease: - The patient has a history of coronary artery disease, diagnosed about 5 years ago after a hospitalization. - A cardiac catheterization at that time revealed that one artery was completely gone. - She is managed by senior sql database developer Dr. Johny Lieberman at [facility], who has prescribed clopidogrel and advised her to continue with blood thinners. - She has a follow-up appointment with her senior sql database developer in May. Chronic back pain: - The patient experiences chronic back pain that worsens with cold weather, making it harder to move. - She takes amitriptyline at night for the pain to help with sleep. Medical History: - Coronary artery disease, diagnosed after hospitalization approximately 5 years ago. - Type 2 Diabetes Mellitus, with a recent A1c of 7.11%. - Hypertension. - Hyperlipidemia. - Chronic back pain. Surgical History: - Cardiac catheterization approximately 5 years ago. Medications: - Atenolol 100 mg for blood pressure. - Rosuvastatin 20 mg for cholesterol. - Fluoxetine 10 mg. - Clopidogrel 75mg, prescribed by her senior sql database developer. - Amitriptyline for back pain and to aid sleep. - Vitamin D. Social History: - Diet: The patient is attempting to improve her diet by eating more protein. - Functional Status: Reports increased difficulty with movement during cold weather. - Family Status: The patient has been occupied with caregiving for her during his cancer treatments. Family History: - has a history of cancer requiring radiation treatments. Diagnostic Results: - Labs: Recent Hemoglobin A1c is 7.11%, down from 8.0% in May. - Vitals: Blood pressure in clinic was 144/90 mmHg. [facility] Medical History Tobacco abuse Dyspepsia Vitamin D deficiency Hypertension, essential Anxiety, generalized Surgical History History of lithotripsy Cataracts, bilateral History of laminectomy Hx of cholecystectomy Family History Father HTN (hypertension) Diabetes mellitus Hyperlipidemia Parkinson disease Dementia Myocardial infarction Mother Lupus HTN (hypertension) Fracture, hip Maternal Grandfather No problems noted. Maternal Grandmother No problems noted. Paternal Grandfather No problems noted. Paternal Grandmother No problems noted. Brother No problems noted. Sister No problems noted. Daughter No problems noted. Daughter No problems noted. Other Mental health disorder Social History Housing: House Alcohol intake: never Patient Tobacco Use Status: Former Tobacco user Years Smoked: 40 e-Cigarette/Vaping Use: Never Used Second Hand Smoke Exposure: No service: No Current occupational status: retired Cognitive needs: No Hearing needs: No Vision needs: Yes Questionnaire Thrive Questionnaire Date Thrive assessed: 05/30/24 I am a: Patient What is your living situation today?: I have a steady place to live Within the past 12 months, did the food you bought not last and you didn't have the money to get more?: Never true Within the past 12 months, did you worry whether your food would run out before you got money to buy more?: Never true Do you have trouble paying for medicines?: No Do you have trouble getting transportation to medical appointments?: No Do you have trouble paying your heating and electricity bill?: Yes Do you have trouble taking care of your child, family member or friend?: No Do you have trouble with day-to-day activities such as bathing, preparing meals, shopping, managing finances, etc.?: No Are you currently unemployed and looking for a job?: No Are you interested in more education?: No Please select the resources that you would like help with: None Currently or been in a relationship where the following occur: No concerns reported THRIVE Score: 1 JOSE-7 AMB Questionnaire JOSE-7 Date JOSE - 7 assessed: 06/06/24 Source: Developed by Drs. Bernardino Goodrich, Inna Sandoval, Oliver Esquivel and colleagues, with an educational reema from [employer]. Review of Systems Narrative Review of Systems - General: No fever no chills - Neurological: No headaches no dizziness - Ear nose throat: No sore throat no hearing difficulty no ear pain - Cardiovascular: No syncope, no chest pain, no palpitations - Gastrointestinal: No nausea vomiting or diarrhea - Endocrine: No polyuria polydipsia no heat intolerance - Genitourinary: No dysuria , no blood in urine Physical exam (Primary Care) Vital Signs: Last Vital Signs Pulse 78 02/05/25 13:47 BP 144/90 H 02/05/25 13:47 Pulse Ox 97 02/05/25 13:47 BMI result Body Mass Index 35.3 Tobacco/Smoking Status: Tobacco use Status Tobacco use date assessed 06/06/24 02/05/25 13:47 Patient Tobacco Use Status Former Tobacco user 02/05/25 13:47 e-Cigarette/Vaping Use Never Used 02/05/25 13:47 Thrive Assessment: Date of Thrive Assessment Date Thrive assessed 05/30/24 02/05/25 13:47 Currently or been in a relationship where the following occur: No concerns reported Narrative Physical Exam - General: No acute distress - HEENT: No acute findings - Neck: Supple - Respiratory system: Able to talk in full sentences, no audible wheeze - Cardiovascular: S1-S2 regular in rate and rhythm - Gastrointestinal: No pain - Extremities: No new findings - UPPER LINING CEMENTER: Alert awake oriented x3 motor intact - Skin: Normal turgor Coding Level of Care Code Est Pt Level 4 (22283) Add On Problem Visit Only Diagnoses Type 2 diabetes mellitus without complication, without long-term current use of insulin E11.9 Diabetes mellitus complication status: without complication Diabetes mellitus clerk supervisor insulin use: without usp use Diabetes mellitus type: type 2 Hypertension, essential I10 Anxiety, generalized F41.1 Lipid disorder E78.9 Class 1 obesity due to excess calories with serious comorbidity and body mass index (BMI) of 34.0 to 34.9 in adult E66.09; Z68.34 Body mass index: BMI 34.0-34.9 Obesity classification: adult class 1 (BMI 30 - 34.9) Serious obesity comorbidity presence: with serious comorbidity Vitamin D deficiency E55.9 Difficulty sleeping G47.9 Coronary artery disease involving [place] coronary artery of [place] heart without angina pectoris I25.10 Associated angina: without angina Coronary Disease-Associated Artery/Lesion type: [place] artery [place] vs. transplanted heart: [place] heart Blood thinned due to long-term anticoagulant use Z79.01 Assessment & Plan Assessment & Plan (1) Diabetes mellitus: Code(s): E11.9 - Type 2 diabetes mellitus without complications Category: Medical Qualifiers: Diabetes mellitus complication status: without complication Diabetes mellitus clerk supervisor insulin use: without usp use Diabetes mellitus type: type 2 Qualified Code(s): E11.9 - Type 2 diabetes mellitus without complications (2) Hypertension, essential: Code(s): I10 - Essential (primary) hypertension Category: Medical (3) Anxiety, generalized: Code(s): F41.1 - Generalized anxiety disorder Category: Medical (4) Lipid disorder: Code(s): E78.9 - Disorder of lipoprotein metabolism, unspecified Category: Medical (5) Obesity due to excess calories: Code(s): E66.09 - Other obesity due to excess calories Category: Medical Qualifiers: Body mass index: BMI 34.0-34.9 Obesity classification: adult class 1 (BMI 30 - 34.9) Serious obesity comorbidity presence: with serious comorbidity Qualified Code(s): E66.09 - Other obesity due to excess calories; Z68.34 - Body mass index [BMI] 34.0-34.9, adult (6) Vitamin D deficiency: Code(s): E55.9 - Vitamin D deficiency, unspecified Category: Medical (7) Difficulty sleeping: Code(s): G47.9 - Sleep disorder, unspecified Category: Medical (8) Coronary artery disease: Code(s): I25.10 - Atherosclerotic heart disease of [place] coronary artery without angina pectoris Category: Medical Qualifiers: Associated angina: without angina Coronary Disease-Associated Artery/Lesion type: [place] artery [place] vs. transplanted heart: [place] heart Qualified Code(s): I25.10 - Atherosclerotic heart disease of [place] coronary artery without angina pectoris (9) Blood thinned due to long-term anticoagulant use: Code(s): Z79.01 - retirement (current) use of anticoagulants Category: Medical Plan Problem List - Essential Hypertension - Type 2 Diabetes Mellitus - Coronary Artery Disease - Chronic back pain - Hyperlipidemia - Overweight - Preventative care: Influenza vaccination Plan - The patient will undergo non-fasting blood tests today. - She is advised to focus more on her diet to improve her A1c. - If her A1c does not improve further, medication for diabetes will be considered. - A follow-up visit is scheduled via telephone in April. - During her April we will recheck Hba1c Orders: Orders Comprehensive Met. Panel Today E11.9 - Type 2 diabetes mellitus without complications, E55.9 - Vitamin D deficiency, unspecified, E66.09 - Other obesity due to excess calories, E78.9 - Disorder of lipoprotein metabolism, unspecified, F41.1 - Generalized anxiety disorder, G47.9 - Sleep disorder, unspecified, I10 - Essential (primary) hypertension, Z68.34 - Body mass index [BMI] 34.0-34.9, adult LDL Cholesterol Direct Today E11.9 - Type 2 diabetes mellitus without complications, E55.9 - Vitamin D deficiency, unspecified, E66.09 - Other obesity due to excess calories, E78.9 - Disorder of lipoprotein metabolism, unspecified, F41.1 - Generalized anxiety disorder, G47.9 - Sleep disorder, unspecified, I10 - Essential (primary) hypertension, Z68.34 - Body mass index [BMI] 34.0-34.9, adult Microalbumin, Random (w Creat) Today E11.9 - Type 2 diabetes mellitus without complications, E55.9 - Vitamin D deficiency, unspecified, E66.09 - Other obesity due to excess calories, E78.9 - Disorder of lipoprotein metabolism, unspecified, F41.1 - Generalized anxiety disorder, G47.9 - Sleep disorder, unspecified, I10 - Essential (primary) hypertension, Z68.34 - Body mass index [BMI] 34.0-34.9, adult Complete Blood Count Auto Diff Today E11.9 - Type 2 diabetes mellitus without complications, E55.9 - Vitamin D deficiency, unspecified, E66.09 - Other obesity due to excess calories, E78.9 - Disorder of lipoprotein metabolism, unspecified, F41.1 - Generalized anxiety disorder, G47.9 - Sleep disorder, unspecified, I10 - Essential (primary) hypertension, Z68.34 - Body mass index [BMI] 34.0-34.9, adult
[2025-02-05 13:47] VITALS: BP 144/90; PULSE 78; O2SAT 97; BMI 35.3
--- OUTSIDE RECORDS SUMMARY | 2025-02-05 17:51 | XMS_ITS | Clinical Summary ---
Author Organization [employer] Address [address] [facility] [address] [place] [address] Care Team Providers Care Blanking Machine Operator Name Role Phone Unavailable Primary Care Provider [...] of 2) 2006 COVID-19 Vaccine (4 - 2024-2 6 season) 2024 01/22/2021, 07/16/2020, 06/18/2020 Influenza Vaccine (#1) 2024 RSV Patients and Patients Aged 60 years [...] patient's age to complete this topic Meningococcal B Vaccine Aged Out No l onger eligible based on patient's age to complete [...]
--- OUTSIDE RECORDS SUMMARY | 2025-02-05 17:51 | XMS_ITS | Patient Health Record ---
[facility] Address [address] [facility] [place] [address] Care Team Providers Care Animal Ecologist Name Role Phone Blue DOE, Asma Primary Care Provider Meena Salcido Unavailable [phone] Allergies Allergen (clinical drug ingredient) Drug/Non Drug [...] Range Notes HEMOGLOBIN A1C (GLYCOHEMOGLO BIN) Reviewed date:08/21/2024 02:02:06 PM Interpretation: Performing Lab: Notes/Report: HEMOGLOBIN A1C % (HH) 8.0 Reason For Referral Diagnosis 1 Type 2 diabetes vera itus without complication, without long-term current use of insulin (E11.9) Diagnosis 2 Pain in left toe(s) (M79.675) Diagnosis 3 Pain in right toe(s) (M79.674) Diagnosis 4 Tinea unguium (B35.1 ) Diagnosis 5 Other nail disorders (L60.8) Diagnosis 6 Disorder of the skin and subcutaneous tissue, unspecified (L98.9) Diagnosis 7 Other eczema (L30.8) Diagnosis 8 Dystrophic nail (L60 .3) Referring Provider First Name Pablito Referring Provider Last Name Blue [facility] Referred Provider Meena Crespo Referred Address [address] [place], [place],[address], Referred Provider Specialty Podiatry Referral Priority Routine [...] bedt corrine Orally Once a day Active Immunizations Vaccine Route Administration Date Status Comme nts Influenza Unknown 08/21/2024 Refused Social History Tobacco Use: Social History Observation [...] Problem Type II diabetes mellitus without complication ([id number]) Type 2 diabetes mellitus without complication (E11.9) Active confirmed Vital Signs Blood pressure diastolic 65 mm Hg 02/01/2025 Height 5ft4in in 02/01/2025 Blood pressure systolic 128 mm Hg 02/01/2025 Weight 210 lbs 02/01/2025 BMI 36.04 kg/m2 02/01/2025 Encounters Encounter Location Date Provider Diagnosis [facility] [address] [place] [address] 03/27/2024 Meena Perica Pain in right toe(s) M79.674 ; Type 2 diabetes mellitus without complication E11.9 ; Tinea unguium B35.1 and Pain in left toe(s) M79.[address] [address] 05/29/2024 Meena Perica Pain in right toe(s) M79.674 ; Type 2 diabetes mellitus without complication E11.9 ; Tinea unguium B35.1 and Pain in left toe(s) M79.[address] [address] 08/21/2024 Meena Perica Pain in right toe(s) M79.674 ; Type 2 diabetes mellitus without complication E11.9 ; Tinea unguium B35.1 and Pain in left toe(s) M79.[address] [address] 02/01/2025 Meena Perica Pain in right toe(s) M79.674 ; Type 2 diabetes mellitus without complication E11.9 ; Tinea unguium B35.1 and Pain in left toe(s) M79.[address] [address] 03/22/2024 Meena Perica [address] [address] 11/09/2024 Meena Perica Assessments Encounter Date Diagnosis (ICD Code) Assessment Notes Treatment Notes Treatment Clinical Notes Section Notes 03/27/2024 Pain in right toe(s) (ICD-10 - M79.674) 05/29/2024 Pain in right toe(s) (ICD-10 - M79.674) 08/21/2024 Pain in right toe(s) (ICD-10 - M79.674) 02/01/2025 Pain in right toe(s) (ICD-10 - M79.674) 02/01/2025 Type 2 diabetes mellitus without complication (ICD-10 - E11.9) 08/21/2024 Type 2 diabetes mellitus without complication (ICD-10 - E11.9) 05/29/2024 Type 2 diabetes mellitus without complication (ICD-10 - E11.9) 03/27/2024 Type 2 diabetes mellitus without complication (ICD-10 - E11.9) 05/29/2024 Tinea unguium (ICD-10 - B35.1) 03/27/2024 Tinea unguium (ICD-10 - B35.1) 08/21/2024 Tinea unguium (ICD-10 - B35.1) 02/01/2025 Tinea unguium (ICD-10 - B35.1) 02/01/2025 Pain in left toe(s) (ICD-10 - M79.675) 08/21/2024 Pain in left toe(s) (ICD-10 - M79.675) 03/27/2024 Pain in left toe(s) (ICD-10 - M79.675) 05/29/2024 Pain in left toe(s) (ICD-10 - M79.675) Plan Of Treatment Next Appt Details Provider Name:Meena roberson, 04/26/2025 12:30:00 PM, [address] [place] [address], [phone], Insurance Providers Payer Name Payer Address Payer Phone Subscriber Number Group Number Insured Name Patient Relationship to Insured Coverage Start Date Coverage End Date [facility] 65 Medicare [address] [place] [address] [id number] Arin Eufemia rodrigues Self - patient is the insured Medical [...]
--- OUTSIDE RECORDS SUMMARY | 2025-02-05 17:51 | XMS_ITS | Encounter Summary ---
Author Organization [employer] Address [address] [facility] [address] [place] [address] Care Team Providers Care Pipe Fittings Molder Name Role Phone Lolita Kim MD Primary Care Provider [phone] Encounter Details Date Type Department Care Team (Late st Contact Info) Description 11/22/2022 Abstract [facility] [address], [place] [phone] Lolita Kim MD [address], [place] [phone] Social History Tobacco Use Types Packs/Day Years [...] on filedocumented in this encounter Care Teams Pipe Fittings Molder Relationship Specialty Start Date End Date Lolita Kim MD [address], [place] [phone] PCP - General Family Medicine 04/16/21 02/22/23 documented as of this encounter
== END 2025-02-05 14:15 | disposition home or self-care (01) ==
LOC: HO.HMCC 13:43
PROVIDERS: PCP Internal Medicine; Visit Provider Internal Medicine
DX: E11.9 Type 2 diabetes mellitus without complications (principal); I10 Essential (primary) hypertension; F41.1 Generalized anxiety disorder; E78.9 Disorder of lipoprotein metabolism, unspecified; E66.09 Other obesity due to excess calories; Z68.34 Body mass index [BMI] 34.0-34.9, adult; E55.9 Vitamin D deficiency, unspecified; G47.9 Sleep disorder, unspecified; I25.10 Atherosclerotic heart disease of native coronary artery without angina pectoris; Z79.01 Long term (current) use of anticoagulants